=== PATIENT | male | born 1970 | race Caucasian/White ===

== ENCOUNTER → 2016-11-17 | Outpatient (CLI) | payer OTHER ==
[~2016-11-17] MED LIST: ASPEC81 PO; ASPI81TA28 PO; ATOR-26 PO; ATV/1 PO; BSP/10 PO; BUSP5TAB59 PO; CLOP1TAB5 PO; CYCL10TA6 PO; FLUO20CA35 PO; IBUP-1050 PO; LORA-741 PO; LPR25 PO; LPT40 PO; METO25TA56 PO; OXYC1TAB3 PO; PANT1TAB3 PO; PLV75 PO; RABE1TAB2 PO
[2016-11-17 09:53] LABS: ALT/SGPT 30 U/L (12-78); BLOOD UREA NITROGEN 15 mg/dl (7-18); BUN/CREATININE RATIO 15.5 (10-20); CALCIUM 8.6 mg/dl (8.5-10.1); CARBON DIOXIDE 24 mmol/L (21-32); CHLORIDE 110 mmol/L (98-107); CHOLESTEROL 149 mg/dl (0-200); CREATININE 0.94 mg/dl (0.60-1.40); GLUCOSE 109 mg/dl (70-99); POTASSIUM 3.8 mmol/L (3.5-5.1); SODIUM 143 mmol/L (136-145)
[2016-11-17 09:56] LABS: ALB/GLOB RATIO 0.9 (0.9-2); ALKALINE PHOSPHATASE 100 U/L (45-117); AST/SGOT 23 U/L (15-37); HDL CHOLESTEROL 30 mg/dl; LDL CHOLESTEROL CALCULATED 78 mg/dl; TRIGLYCERIDES 206 mg/dl (0-150); VERY LOW DENSITY LIPOPROT CALC 41 mg/dl
== END | disposition home or self-care (01) ==
LOC: C.LAB1850 07:37
PROVIDERS: ATTEND Internal Medicine Cardiovascular Disease
DX: I25.10 Atherosclerotic heart disease of native coronary artery without angina pectoris (principal); I10 Essential (primary) hypertension; E78.5 Hyperlipidemia, unspecified

== ENCOUNTER 2017-04-18 07:43 | Emergency (ER) | payer OTHER ==
[~2017-04-18] VITALS: Ht 188 cm; Wt 139.6 kg
[~2017-04-18 07:43] MED LIST changes: -ASPI81TA28 PO; -ATOR-26 PO; -ATV/1 PO; -BSP/10 PO; -BUSP5TAB59 PO; -CLOP1TAB5 PO; -CYCL10TA6 PO; -FLUO20CA35 PO; -LORA-741 PO; -METO25TA56 PO; -OXYC1TAB3 PO; -PANT1TAB3 PO; -RABE1TAB2 PO
[2017-04-18 07:50] VITALS: TEMP 36.7; Ht 188 cm; Wt 139.6 kg
[2017-04-18] MEDS ORDERED: KETOROLAC TROMETHAMINE 30 MG/ML VIAL IV STA (08:06)
--- NOTE | 2017-04-18 08:08 | EMERGENCY ROOM VISIT NOTE ---
History Report prepared by Unruly: Itzel Webber Under the Supervision of: Dr. Aaron Maxwell M.D. First contact with patient: 08:00 Chief Complaint: FLANK PAIN Stated Complaint: LEFT SIDE PAIN History of Present Illness The patient is a 46 year old male who presents to the Emergency Room with complaints of worsening left sided flank pain beginning 2 days prior to arrival. The patient states that Tuesday he fell down his stairs at home. He states that he caught himself on the railing with his left arm. He notes soreness after the fall. The patient states that 2 days ago he was moving and lifting items from his basement. Since then he has been experiencing pain to his left flank. The patient notes his pain worsens with deep breaths and movement. He denies blood in urine, urinary symptoms, back pain, headache, neck pain, abdominal pain or extremity pain. The patient has had a cardiac stent in place since May last year. He is on blood thinners. Source of History: patient, spouse/significant other Onset: 2 days [employer] Position: other (left flank) Timing: worsening Modifying Factors (Worsening): breathing, movement Associated Symptoms: No headache, No neck pain, No abdominal pain, No back pain, No urinary symptoms Review of Systems See HPI for pertinent positives & negatives. A total of 10 systems reviewed and were otherwise negative. Past Medical & Surgical Medical Problems: (1) Chest pain (2) Hypertension (3) Palpitations (4) skin problems Old medical records were reviewed. Nurse's notes were reviewed and I agree with. Family History Cancer Lung disease Social History Smoking Status: Current Every Day Smoker Drug Use: none Marital Status: Housing Status: lives with family Occupation Status: employed Current/Historical Medications Scheduled Aspirin (Aspirin EC Low Dose), 81 MG PO QAM Atorvastatin (Atorvastatin Calcium), 80 MG PO HS Clopidogrel Bisulfate (Clopidogrel), 75 MG PO QAM Metoprolol Tartrate (Lopressor), 12.5 MG PO BID Rabeprazole Sodium (Rabeprazole Sodium), 20 MG PO DAILY Scheduled PRN Ibuprofen (Advil), 400-600 MG PO Q6 PRN for Pain Oxycodone Immediate Rel Tab (Roxicodone Ir), 1-2 TAB PO Q6 PRN for Severe Pain Allergies Coded Allergies: No Known Drug Allergy (Verified Allergy, Unknown, ., 04/18/17) Physical Exam Vital Signs Date Time Temp Pulse Resp B/P (MAP) Pulse Ox O2 Delivery O2 Flow Rate FiO2 04/18/17 11:31 62 18 138/76 95 04/18/17 10:21 62 18 135/77 95 Room Air 04/18/17 07:50 36.7 70 18 141/86 95 Room Air Physical Exam General: Well developed well nourished in no acute distress middle aged male, breathing comfortably on room air. Normal speech. he has pain with deep breathing, no respiratory distress, pain seems to worsen with movement. HEENT: Normal cephalic atraumatic. Pupils are equal round and reactive to light. Sclerae anicteric. Extraocular movements are intact. Oropharynx is pink with moist mucous membranes. No swelling of the mouth lips or tongue. Neck: Supple with a midline trachea. No meningeal signs or stiffness, no JVD or bruits. No Stridor. Chest: Clear to auscultation bilaterally. No wheezes or rhonchi. No increased work of breathing. Heart: regular rate and rhythm. Abdomen: Soft nontender, nondistended without rebound guarding or rigidity. Extremities: No cyanosis clubbing or edema. No calf tenderness or assymetry Spine/Back. Tender to palpation of lower left rib cage, no rash. Skin: Good turgor without rashes. Neurologic exam: Cranial nerves two through 12 are intact. Motor and sensation are intact and symmetrical throughout. Medical Decision & Procedures ER Provider Diagnostic Interpretation: Radiology results as stated below per my review and radiologist interpretation: LEFT RIBS UNILATERAL WITH PA CHEST CLINICAL HISTORY: Left lower rib pain following fall. COMPARISON STUDY: Chest radiograph June 20, 2016. FINDINGS: There is no pneumothorax or pleural effusion. No airspace opacities are identified. Cardiomediastinal silhouette is normal. No acute left rib fractures are identified. IMPRESSION: No pneumothorax. No acute left rib fractures identified. Electronically signed by: Cristi Mullen M.D. 04/18/2017 9:08 AM Dictated Date/Time: 04/18/2017 9:[address] ANGIOGRAPHY OF THE CHEST, PULMONARY EMBOLUS PROTOCOL CLINICAL HISTORY: Left posterior chest pain. COMPARISON STUDY: Chest CT June 06, 2016. TECHNIQUE: Following IV administration of 93 mL of Optiray-320, helical axial images of the chest were obtained utilizing the pulmonary embolus protocol. Maximal intensity projections and sagittal and coronal reformats were viewed on an independent 3D workstation. IV contrast was administered without complication. CT DOSE: 729.23 mGy.cm FINDINGS: No pulmonary emboli are identified. There is no evidence of thoracic aortic dissection. There is borderline cardiomegaly. There is no pericardial effusion. No enlarged thoracic lymph nodes are present. There are several calcified right hilar lymph nodes. There are few calcified and noncalcified pulmonary nodules which are unchanged and CT of September 01, 2010. These are benign. There is no consolidation to suggest pneumonia. Bony thorax is unremarkable. There is fatty infiltration of the liver. IMPRESSION: 1. No pulmonary emboli identified. 2. No acute intrathoracic findings. 3. Fatty liver. Electronically signed by: Cristi Mullen M.D. 04/18/2017 10:26 AM Dictated Date/Time: 04/18/2017 10:18 AM Laboratory Results 04/18/17 08:20 Red Blood Count 4.76, Mean Corpuscular Volume 88.0, Mean Corpuscular Hemoglobin 30.7, Mean Corpuscular Hemoglobin Concent 34.8, Mean Platelet Volume 10.1, Neutrophils (%) (Auto) 63.5, Lymphocytes (%) (Auto) 27.1, Monocytes (%) (Auto) 7.9, Eosinophils (%) (Auto) 1.1, Basophils (%) (Auto) 0.1, Neutrophils # (Auto) 4.72, Lymphocytes # (Auto) 2.01, Monocytes # (Auto) 0.59, Eosinophils # (Auto) 0.08, Basophils # (Auto) 0.01 04/18/17 08:20 Test 04/18/17 08:20 04/18/17 08:30 04/18/17 09:20 White Blood Count 7.43 K/uL (4.8-10.8) Red Blood Count 4.76 M/uL (4.7-6.1) Hemoglobin 14.6 g/dL (14.0-18.0) Hematocrit 41.9 % (42-52) Mean Corpuscular Volume 88.0 fL (80-100) Mean Corpuscular Hemoglobin 30.7 pg (25-34) Mean Corpuscular Hemoglobin Concent 34.8 g/dl (32-36) Platelet Count 185 K/uL (130-400) Mean Platelet Volume 10.1 fL (7.4-10.4) Neutrophils (%) (Auto) 63.5 % Lymphocytes (%) (Auto) 27.1 % Monocytes (%) (Auto) 7.9 % Eosinophils (%) (Auto) 1.1 % Basophils (%) (Auto) 0.1 % Neutrophils # (Auto) 4.72 K/uL (1.4-6.5) Lymphocytes # (Auto) 2.01 K/uL (1.2-3.4) Monocytes # (Auto) 0.59 K/uL (0.11-0.59) Eosinophils # (Auto) 0.08 K/uL (0-0.5) Basophils # (Auto) 0.01 K/uL (0-0.2) RDW Standard Deviation 43.9 fL (36.4-46.3) RDW Coefficient of Variation 13.6 % (11.5-14.5) Immature Granulocyte % (Auto) 0.3 % Immature Granulocyte # (Auto) 0.02 K/uL (0.00-0.02) Anion Gap 9.0 mmol/L (3-11) Est Creatinine Clear Calc Drug Dose 123.5 ml/min Estimated GFR () 92.2 Estimated GFR (Non- 79.5 BUN/Creatinine Ratio 13.5 (10-20) Calcium Level 8.6 mg/dl (8.5-10.1) Troponin I < 0.015 ng/ml (0-0.045) Bedside D-Dimer > 450 ng/mlFEU (0-450) Urine Color DK YELLOW Urine Appearance CLEAR (CLEAR) Urine pH 5.0 (4.5-7.5) Urine Specific [place] 1.031 (1.000-1.030) Urine Protein NEG (NEG) Urine Glucose (UA) NEG (NEG) Urine Ketones TRACE (NEG) Urine Occult Blood NEG (NEG) Urine Nitrite NEG (NEG) Urine Bilirubin NEG (NEG) Urine Urobilinogen NEG (NEG) Urine Leukocyte Esterase NEG (NEG) Laboratory studies as stated above per my review. Medications Administered Medications (Trade) Dose Ordered Sig/Aung Route Start Time Stop Time Status Last Admin Dose Admin Ketorolac Tromethamine (Toradol Inj) 30 mg NOW STAT IV 04/18/17 08:06 04/18/17 08:09 DC 04/18/17 08:27 30 MG ECG Indication: other (flank pain) Rate (beats per minute): 62 Rhythm: normal sinus Findings: no acute ischemic change, no ectopy Change: no significant change (from June 20, 2016) ED Course 0801: Past medical records reviewed. The patient was evaluated in room B9, and a complete history and physical examination were performed. 805: Toradol Inj 30 mg IV. 919: I reevaluated the patient. I discussed test results and a CT scan will be ordered. 1104: I reevaluated the patient and he is feeling better. He would like to go home. 1110: Upon reevaluation, the patient is hemodynamically stable. I discussed the results and treatment plan with him. He verbalized agreement of the treatment plan. The patient was discharged home. Medical Decision Differentials include, but are not limited to; rib fracture, pneumothorax, PE, UTI, kidney stone, electrolyte or metabolic abnormalities, cardiac disease. Medication Reconciliation: I attest that I have personally reviewed the patient' s current medication list. Blood pressure Screening: Patient was found to have normal blood pressure on screening and does not require follow-up. This patient comes in as described above. He has pain in his left lower rib. He may have fallen but had no significant direct trauma there. He's been urinating fine without any blood. It hurts when he takes a deep breath or moves. The pain actually started about a day or so later does have a history of cardiac disease and has had no chest pain and the symptoms be extremely atypical for cardiac disease. IV access established, EKG does not suggest acute coronary syndrome or arrhythmia. Troponin is normal and makes cardiac disease extremely unlikely. Chest x-ray with rib series does not show any fine acute findings. There is no pneumothorax or rib fracture. His d-dimer was elevated and in light of this, I did do a chest CT and there is no evidence of PE or other acute pathology. He was given IV Toradol and he seems more comfortable. He feels good and would like to go home. There is nothing to suggest a UTI or kidney stone. He will rest and drink plenty of fluids. Use ibuprofen here for breakthrough pain. He was given a small prescription for OxyIR that he can use 5 mg as directed and was warned that this could make him drowsy and do not take before drinking, driving, working. He was happy with plan and discharged to home. Impression Primary Impression: Left flank pain Additional Impression: Rib pain on left side Scribe Attestation The scribe's documentation has been prepared under my direction and personally reviewed by me in its entirety. I confirm that the note above accurately reflects all work, treatment, procedures, and medical decision making performed by me. Departure Information Dispostion Home / Self-Care Prescriptions Oxycodone Immediate Rel Tab (ROXICODONE IR) 5 Mg Tab 1-2 TAB PO Q6 Y for Severe Pain, #10 TAB Prov: Aaron Maxwell M.D. 04/18/17 Referrals No Doctor, Assigned (PCP) Forms HOME CARE DOCUMENTATION FORM, IMPORTANT VISIT INFORMATION, School Instructions, Work Instructions Patient Instructions [facility] Additional Instructions Rest. Drink plenty of fluids. For pain, may use ibuprofen 600 mgs every 6 hours, take with food For more severe pain, may use OxyIR 5 mg, one or 2 pills every 4-6 hours as needed OxyIR may make you drowsy and do not take before drinking, driving, working Return if: Increasing pain, worsening of symptoms, fever or chills, any new problems or concerns. Follow-up with your doctor in 2-4 days for recheck Problem Qualifiers
[2017-04-18 08:38] LABS: BASO % 0.1 %; BASO ABS # 0.01 K/uL (0-0.2); COMPLETE YES; EOS % 1.1 %; HEMATOCRIT 41.9 % (42-52); IG% 0.3 %; LYMPH % 27.1 %; LYMPH ABS # 2.01 K/uL (1.2-3.4); MEAN CORPUSCULAR HEMOGLOBIN 30.7 pg (25-34); MEAN CORPUSCULAR HGB CONC 34.8 g/dl (32-36); MEAN PLATELET VOLUME 10.1 fL (7.4-10.4); MONO % 7.9 %; NEUT % 63.5 %; PLATELET COUNT 185 K/uL (130-400); RED BLOOD COUNT 4.76 M/uL (4.7-6.1); WHITE BLOOD COUNT 7.43 K/uL (4.8-10.8)
[2017-04-18 08:59] LABS: BUN/CREATININE RATIO 13.5 (10-20); CREATININE 1.1 mg/dl (0.60-1.40); POTASSIUM 3.6 mmol/L (3.5-5.1)
[2017-04-18 09:04] LABS: CALCIUM 8.6 mg/dl (8.5-10.1)
--- NOTE | 2017-04-18 09:09 | DIAGNOSTIC IMAGING REPORT ---
LEFT RIBS UNILATERAL WITH PA CHEST CLINICAL HISTORY: Left lower rib pain following fall. COMPARISON STUDY: Chest radiograph June 20, 2016. FINDINGS: There is no pneumothorax or pleural effusion. No airspace opacities are identified. Cardiomediastinal silhouette is normal. No acute left rib fractures are identified. IMPRESSION: No pneumothorax. No acute left rib fractures identified. Electronically signed by: Cristi Mullen M.D. 04/18/2017 9:08 AM Dictated Date/Time: 04/18/2017 9:06 AM
[2017-04-18] MEDS ORDERED: OPTIRAY 320 IV PRN (09:30)
[2017-04-18 10:10] LABS: URINE APPEARANCE CLEAR (CLEAR); URINE BILIRUBIN NEG (NEG); URINE COLOR DK YELLOW; URINE NITRITE NEG (NEG); URINE SPECIFIC GRAVITY 1.031 (1.000-1.030); UROBILINOGEN NEG (NEG)
[2017-04-18 10:17] LABS: MANUAL MICROSCOPIC REQUIRED? NO; REVIEW REQ? NO
--- NOTE | 2017-04-18 10:28 | DIAGNOSTIC IMAGING REPORT ---
CT ANGIOGRAPHY OF THE CHEST, PULMONARY EMBOLUS PROTOCOL CLINICAL HISTORY: Left posterior chest pain. COMPARISON STUDY: Chest CT June 06, 2016. TECHNIQUE: Following IV administration of 93 mL of Optiray-320, helical axial images of the chest were obtained utilizing the pulmonary embolus protocol. Maximal intensity projections and sagittal and coronal reformats were viewed on an independent 3D workstation. IV contrast was administered without complication. CT DOSE: 729.23 mGy.cm FINDINGS: No pulmonary emboli are identified. There is no evidence of thoracic aortic dissection. There is borderline cardiomegaly. There is no pericardial effusion. No enlarged thoracic lymph nodes are present. There are several calcified right hilar lymph nodes. There are few calcified and noncalcified pulmonary nodules which are unchanged and CT of September 01, 2010. These are benign. There is no consolidation to suggest pneumonia. Bony thorax is unremarkable. There is fatty infiltration of the liver. IMPRESSION: 1. No pulmonary emboli identified. 2. No acute intrathoracic findings. 3. Fatty liver. Electronically signed by: Cristi Mullen M.D. 04/18/2017 10:26 AM Dictated Date/Time: 04/18/2017 10:18 AM
[2017-04-18] MEDS ORDERED: OXYC1TAB3 PO (11:11)
[2017-04-18 11:31] VITALS: BP 138/76; PULSE 62; O2SAT 95
[2017-05-29] MEDS ORDERED: RABE1TAB2 PO (21:17)
[2017-07-22] MEDS ORDERED: FLUO20CA35 PO (07:35)
[2017-08-05] MEDS ORDERED: ATV/1 PO (09:33)
== END 2017-04-18 11:25 | disposition home or self-care (01) ==
LOC: C.EDB 07:44
DX: R10.30 Lower abdominal pain, unspecified (principal); R07.81 Pleurodynia; Z95.5 Presence of coronary angioplasty implant and graft; I10 Essential (primary) hypertension; Z80.9 Family history of malignant neoplasm, unspecified; F17.210 Nicotine dependence, cigarettes, uncomplicated; Z79.82 Long term (current) use of aspirin; Z79.899 Other long term (current) drug therapy

== ENCOUNTER 2017-05-29 21:31 | Emergency (ER) | payer OTHER ==
[~2017-05-29] VITALS: Ht 188 cm; Wt 140.3 kg
[~2017-05-29 21:31] MED LIST changes: +OXYC1TAB3 PO; +RABE1TAB2 PO
[2017-05-29 21:35] VITALS: TEMP 36.9; Ht 188 cm; Wt 140.3 kg
[2017-05-29] MEDS ORDERED: KETOROLAC TROMETHAMINE 60 MG/2 ML VIAL IM STA (21:57)
[2017-05-29] MEDS ORDERED: CYCLOBENZAPRINE HCL 10 MG TAB PO STA (21:57)
[2017-05-29] MEDS ORDERED: CYCL10TA6 PO (22:00)
[2017-05-29] MEDS ORDERED: FLEXERIL HOME PACK 10 MG VIAL PO ONE (22:00)
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
[2017-05-29] MEDS ORDERED: ATOR-26 PO (22:08)
[2017-05-29] MEDS ORDERED: METO25TA56 PO (22:08)
[2017-05-29] MEDS ORDERED: CLOP1TAB5 PO (22:08)
[2017-05-29] MEDS ORDERED: IBUP-1050 PO (22:08)
[2017-05-29] MEDS ORDERED: ASPI81TA28 PO (22:08)
[2017-05-29 22:15] VITALS: PULSE 73; O2SAT 96
[2017-05-29 22:29] VITALS: BP 160/97
[2017-07-22] MEDS ORDERED: FLUO20CA35 PO (07:35)
[2017-08-05] MEDS ORDERED: ATV/1 PO (09:33)
== END 2017-05-29 22:30 | disposition home or self-care (01) ==
LOC: C.EDB 21:34 → C.EDD 22:30
DX: S16.1XXA Strain of muscle, fascia and tendon at neck level, initial encounter (principal); S39.012A Strain of muscle, fascia and tendon of lower back, initial encounter; V43.52XA Car driver injured in collision with other type car in traffic accident, initial encounter; I10 Essential (primary) hypertension; F17.200 Nicotine dependence, unspecified, uncomplicated; Z79.82 Long term (current) use of aspirin; Z79.899 Other long term (current) drug therapy; Z80.9 Family history of malignant neoplasm, unspecified; Z82.49 Family history of ischemic heart disease and other diseases of the circulatory system

== ENCOUNTER 2017-06-18 21:23 | Emergency (ER) | payer OTHER ==
[~2017-06-18] VITALS: Ht 177.8 cm; Wt 136.6 kg
[~2017-06-18 21:23] MED LIST changes: -ASPEC81 PO; +ASPI81TA28 PO; +ATOR-26 PO; +CLOP1TAB5 PO; -LPR25 PO; -LPT40 PO; +METO25TA56 PO; -OXYC1TAB3 PO; -PLV75 PO
[2017-06-18 21:36] VITALS: TEMP 36.7; Ht 177.8 cm; Wt 136.6 kg
[2017-06-18 22:15] VITALS: O2SAT 98
[2017-06-18] MEDS ORDERED: LORAZEPAM 2 MG/ML 1 ML VIAL IV STA (22:19)
--- NOTE | 2017-06-18 22:24 | EMERGENCY ROOM VISIT NOTE ---
History Report prepared by Unruly: Jameson Amaro Under the Supervision of: Dr. Naren Gracia M.D. First contact with patient: 22:15 Chief Complaint: SHORTNESS OF BREATH Stated Complaint: ANXIETY Nursing Triage Summary: patient sates around 2030 he was watching TV and suddenly became feeling anxious, flushed, and had feelings of SOB. patient states he then developed pressure to his upper abdomen. patient states he has hx of anxiety attacks that have had similar symptoms to this but today has been worse. patient has hx of MT with stents. History of Present Illness The patient is a 46 year old male who presents to the Emergency Room with complaints of sudden onset "pressure" in the center of his chest that began at 2030, two hours prior to arrival. The patient states that he was laying on the couch watching TV when he started to experience the pressure. He also notes becoming suddenly hot and diaphoretic, and experiencing "tingling" from his head to his feet. He denies feeling anxious before the symptoms began. He does admit to breathing rapidly secondary to his symptoms. He has taken Lorazepam in the past, but it no longer taking it. 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 Please see Additional Medical History Sheet. Past Medical & Surgical Medical Problems: (1) Anxiety State Nos (2) Athscl Heart Disease Of [place] Cor Art W Unstable Ang Pctrs (3) Chest pain (4) GERD (gastroesophageal reflux disease) (5) Hyperlipidemia, Unspecified (6) Hypertension (7) Palpitations (8) skin problems (9) Tobacco Use Disorder Surgical Problems: (1) Presence Of Coronary Angioplasty Implant And Graft Family History Cancer FH: heart disease Lung disease Social History Smoking Status: Never Smoker Drug Use: none Marital Status: Housing Status: lives with family Occupation Status: employed Current/Historical Medications Scheduled Aspirin (Aspirin Ec), 81 MG PO QAM Atorvastatin (Lipitor), 80 MG PO HS Clopidogrel Bisulfate (Plavix), 75 MG PO QAM Metoprolol Tartrate (Lopressor) (Lopressor), 12.5 MG PO BID Rabeprazole Sodium (Rabeprazole Sodium), 20 MG PO DAILY Scheduled PRN Ibuprofen (Advil), 400-600 MG PO Q6H PRN for Pain Lorazepam (Ativan), 0.5 MG PO Q6H PRN for Anxiety/Insomnia Allergies Coded Allergies: No Known Drug Allergy (Verified Allergy, Unknown, ., 06/18/17) Physical Exam Vital Signs Date Time Temp Pulse Resp B/P (MAP) Pulse Ox O2 Delivery O2 Flow Rate FiO2 06/18/17 23:44 79 20 140/90 95 Room Air 06/18/17 22:50 79 20 139/89 98 Room Air 06/18/17 22:15 98 Room Air 06/18/17 21:36 36.7 76 22 159/96 97 Room Air 06/18/17 21:36 97 Room Air 06/18/17 21:30 77 Physical Exam GENERAL: Patient awake, alert, oriented x 3. Patient follows commands. Patient appears anxious. SKIN: No erythema, pallor, cyanosis or rash HEENT: Normal head, pupils equal, reactive to light and accommodation. LUNGS: Clear to auscultation. No wheezes, no rales, no rhonchi. HEART: No murmurs. No gallops. No rubs ABDOMEN: No masses, no rebound, no hepatomegaly or splenomegaly. EXTREMITIES: No signs of trauma or infection. NEUROLOGIC: Cranial nerves II-XII within normal limits. No gross motor sensory function deficits. Medical Decision & Procedures ER Provider Diagnostic Interpretation: Radiology results as stated below per my review and radiologist interpretation: CHEST ONE VIEW PORTABLE CLINICAL HISTORY: Shortness of breath. Anxiety. COMPARISON STUDY: June 20, 2016 FINDINGS: The cardiac and mediastinal contours are normal. There is no evidence of focal pulmonary consolidation. There is no evidence of failure. No pleural effusions are visualized.[ IMPRESSION: No active disease in the chest. Electronically signed by: Denis Taylor M.D. 06/18/2017 10:37 PM Dictated Date/Time: 06/18/2017 10:37 PM Laboratory Results 06/18/17 21:10 Red Blood Count 5.17, Mean Corpuscular Volume 87.8, Mean Corpuscular Hemoglobin 29.2, Mean Corpuscular Hemoglobin Concent 33.3, Mean Platelet Volume 10.3, Neutrophils (%) (Auto) 49.0, Lymphocytes (%) (Auto) 42.8, Monocytes (%) (Auto) 6.4, Eosinophils (%) (Auto) 1.4, Basophils (%) (Auto) 0.1, Neutrophils # (Auto) 4.84, Lymphocytes # (Auto) 4.23, Monocytes # (Auto) 0.63, Eosinophils # (Auto) 0.14, Basophils # (Auto) 0.01 06/18/17 21:10 Test 06/18/17 21:10 White Blood Count 9.88 K/uL (4.8-10.8) Red Blood Count 5.17 M/uL (4.7-6.1) Hemoglobin 15.1 g/dL (14.0-18.0) Hematocrit 45.4 % (42-52) Mean Corpuscular Volume 87.8 fL (80-100) Mean Corpuscular Hemoglobin 29.2 pg (25-34) Mean Corpuscular Hemoglobin Concent 33.3 g/dl (32-36) Platelet Count 186 K/uL (130-400) Mean Platelet Volume 10.3 fL (7.4-10.4) Neutrophils (%) (Auto) 49.0 % Lymphocytes (%) (Auto) 42.8 % Monocytes (%) (Auto) 6.4 % Eosinophils (%) (Auto) 1.4 % Basophils (%) (Auto) 0.1 % Neutrophils # (Auto) 4.84 K/uL (1.4-6.5) Lymphocytes # (Auto) 4.23 K/uL (1.2-3.4) Monocytes # (Auto) 0.63 K/uL (0.11-0.59) Eosinophils # (Auto) 0.14 K/uL (0-0.5) Basophils # (Auto) 0.01 K/uL (0-0.2) RDW Standard Deviation 43.1 fL (36.4-46.3) RDW Coefficient of Variation 13.3 % (11.5-14.5) Immature Granulocyte % (Auto) 0.3 % Immature Granulocyte # (Auto) 0.03 K/uL (0.00-0.02) Prothrombin Time 10.4 SECONDS (9.0-12.0) Prothromb Time International Ratio 1.0 (0.9-1.1) Activated Partial Thromboplast Time 27.4 SECONDS (21.0-31.0) Partial Thromboplastin Ratio 1.1 Anion Gap 9.0 mmol/L (3-11) Est Creatinine Clear Calc Drug Dose 97.8 ml/min Estimated GFR () 75.3 Estimated GFR (Non- 65.0 BUN/Creatinine Ratio 12.2 (10-20) Calcium Level 8.9 mg/dl (8.5-10.1) Total Bilirubin 0.8 mg/dl (0.2-1) Aspartate Amino Transf (AST/SGOT) 24 U/L (15-37) Alanine Aminotransferase (ALT/SGPT) 35 U/L (12-78) Alkaline Phosphatase 137 U/L (45-117) Total Protein 7.8 gm/dl (6.4-8.2) Albumin 3.6 gm/dl (3.4-5.0) Globulin 4.2 gm/dl (2.5-4.0) Albumin/Globulin Ratio 0.9 (0.9-2) Laboratory results as stated above per my review. Medications Administered Medications (Trade) Dose Ordered Sig/Aung Route Start Time Stop Time Status Last Admin Dose Admin Lorazepam (Ativan Inj) 1 mg NOW STAT IV 06/18/17 22:19 06/18/17 22:20 DC 06/18/17 22:28 1 MG ECG Indication: chest pain Rate (beats per minute): 78 Rhythm: normal sinus Findings: no acute ischemic change, no ectopy ED Course 2214: Past medical records reviewed. The patient was evaluated in room B12. A complete history and physical examination was performed. 2218: Ordered Lorazepam 1 mg IV. 0: Upon reevaluation, the patient appeared to have improvement of his symptoms. I discussed today's findings with him. He verbalized agreement of the treatment plan. The patient was discharged home. Medical Decision I considered multiple diagnoses including myocardial infarction, chest wall pain , anxiety, pericarditis, myocarditis, aortic emergencies, pulmonary embolism, congestive heart failure, GI causes, and other significant cardiopulmonary disorders. Multiple labs, EKG and imaging were obtained. Please see above. The patient has no evidence of an acute cardiopulmonary event. Patient did feel better after taking Ativan. The patient will be given a prescription for the same. He is to follow-up with his family physician within the next week regarding this problem and his elevated blood pressure. Medication Reconcilliation Current Medication List: was personally reviewed by me Blood Pressure Screening Patient's blood pressure: Elevated blood pressure Blood pressure disposition: Referred to PCP Impression Primary Impression: Anxiety attack Scribe Attestation The scribe's documentation has been prepared under my direction and personally reviewed by me in its entirety. I confirm that the note above accurately reflects all work, treatment, procedures, and medical decision making performed by me. Departure Information Dispostion Home / Self-Care Prescriptions Lorazepam (ATIVAN) 0.5 Mg Tab 0.5 MG PO Q6H Y for Anxiety/Insomnia, #10 TAB Prov: Naren Gracia M.D. 06/18/17 Referrals Bob Levin (PCP) Patient Instructions Anxiety Disorder, My [facility] Additional Instructions 1 Ativan every 6 hours as needed for anxiety. Follow-up with your family physician within the next 7 days regarding this problem and to recheck your blood pressure. Return here sooner if your chest pain gets worse.
[2017-06-18 22:25] LABS: BASO % 0.1 %; BASO ABS # 0.01 K/uL (0-0.2); COMPLETE YES; EOS % 1.4 %; HEMATOCRIT 45.4 % (42-52); IG% 0.3 %; LYMPH % 42.8 %; LYMPH ABS # 4.23 K/uL (1.2-3.4); MEAN CELL VOLUME 87.8 fL (80-100); MEAN CORPUSCULAR HEMOGLOBIN 29.2 pg (25-34); MEAN CORPUSCULAR HGB CONC 33.3 g/dl (32-36); MEAN PLATELET VOLUME 10.3 fL (7.4-10.4); MONO % 6.4 %; PLATELET COUNT 186 K/uL (130-400); RED BLOOD COUNT 5.17 M/uL (4.7-6.1); WHITE BLOOD COUNT 9.88 K/uL (4.8-10.8)
[2017-06-18 22:28] LABS: PARTIAL THROMBOPLASTIN RATIO 1.1; PROTHROMBIN TIME (PATIENT) 10.4 SECONDS (9.0-12.0)
[2017-06-18 22:36] LABS: ALB/GLOB RATIO 0.9 (0.9-2); BUN/CREATININE RATIO 12.2 (10-20); CALCIUM 8.9 mg/dl (8.5-10.1); CREATININE 1.3 mg/dl (0.60-1.40)
--- NOTE | 2017-06-18 22:39 | DIAGNOSTIC IMAGING REPORT ---
CHEST ONE VIEW PORTABLE CLINICAL HISTORY: Shortness of breath. Anxiety. COMPARISON STUDY: June 20, 2016 FINDINGS: The cardiac and mediastinal contours are normal. There is no evidence of focal pulmonary consolidation. There is no evidence of failure. No pleural effusions are visualized.[ IMPRESSION: No active disease in the chest. Electronically signed by: Denis Taylor M.D. 06/18/2017 10:37 PM Dictated Date/Time: 06/18/2017 10:37 PM
[2017-06-18 22:48] LABS: POTASSIUM 3.4 mmol/L (3.5-5.1)
[2017-06-18 23:44] VITALS: BP 140/90; PULSE 79; O2SAT 95
[2017-06-18] MEDS ORDERED: LORA-741 PO (23:45)
[2017-07-22] MEDS ORDERED: FLUO20CA35 PO (07:35)
[2017-08-05] MEDS ORDERED: ATV/1 PO (09:33)
== END 2017-06-18 22:57 | disposition home or self-care (01) ==
LOC: EDBD 21:23 → C.EDB 21:26
DX: F41.9 Anxiety disorder, unspecified (principal); I25.10 Atherosclerotic heart disease of native coronary artery without angina pectoris; K21.9 Gastro-esophageal reflux disease without esophagitis; E78.5 Hyperlipidemia, unspecified; I10 Essential (primary) hypertension; R00.2 Palpitations; Z82.49 Family history of ischemic heart disease and other diseases of the circulatory system; Z79.82 Long term (current) use of aspirin

== ENCOUNTER → 2017-07-20 | Outpatient (CLI) | payer OTHER ==
[~2017-07-20] MED LIST changes: +ATV/1 PO; +FLUO20CA35 PO
[2017-07-20 17:38] LABS: BASO % 0.1 %; BASO ABS # 0.01 K/uL (0-0.2); COMPLETE YES; EOS % 0.9 %; HEMATOCRIT 42.1 % (42-52); IG% 0.4 %; LYMPH % 32.3 %; LYMPH ABS # 2.39 K/uL (1.2-3.4); MEAN CELL VOLUME 89.2 fL (80-100); MEAN CORPUSCULAR HEMOGLOBIN 30.3 pg (25-34); MEAN PLATELET VOLUME 10.3 fL (7.4-10.4); NEUT % 58.3 %; PLATELET COUNT 201 K/uL (130-400); RED BLOOD COUNT 4.72 M/uL (4.7-6.1); WHITE BLOOD COUNT 7.39 K/uL (4.8-10.8)
[2017-07-20 17:58] LABS: ALT/SGPT 41 U/L (12-78); AMYLASE 40 U/L (25-115); AST/SGOT 20 U/L (15-37); BLOOD UREA NITROGEN 15 mg/dl (7-18); BUN/CREATININE RATIO 13.3 (10-20); CALCIUM 8.3 mg/dl (8.5-10.1); CARBON DIOXIDE 25 mmol/L (21-32); CHLORIDE 110 mmol/L (98-107); GLUCOSE 107 mg/dl (70-99); POTASSIUM 3.7 mmol/L (3.5-5.1); SODIUM 141 mmol/L (136-145)
[2017-07-20 18:00] LABS: ALB/GLOB RATIO 0.9 (0.9-2); ALKALINE PHOSPHATASE 105 U/L (45-117)
[2017-07-24 00:37] LABS: IGA SERUM 224 mg/dL (81-463); TIS TRANS IGA 1 U/mL (<4)
== END | disposition home or self-care (01) ==
LOC: C.LAB1850 16:18
PROVIDERS: ATTEND Registered Nurse
DX: R11.0 Nausea (principal)

== ENCOUNTER → 2017-07-22 | Outpatient (CLI) | payer OTHER ==
--- NOTE | 2017-07-22 10:48 | DIAGNOSTIC IMAGING REPORT ---
ABDOMINAL ULTRASOUND, RIGHT UPPER QUADRANT HISTORY: Abdominal bloating. Esophageal reflux disease. Nausea. COMPARISON: CT of the abdomen and pelvis June 20, 2016. FINDINGS: Liver morphology is normal. Hepatic echogenicity is increased consistent with fatty infiltration. There is sparing within the gallbladder fossa. No biliary ductal dilatation is present. Common bile duct measures 5 mm in caliber. The gallbladder is normal. There are no gallstones. Pancreas is partially obscured by overlying bowel gas. There is no right hydronephrosis. IMPRESSION: 1. No gallstones or biliary ductal dilatation. 2. Fatty infiltration of the liver. 3. Study mildly compromised by suboptimal penetration. Partially obscured pancreas. Electronically signed by: Cristi Mullen M.D. 07/22/2017 10:46 AM Dictated Date/Time: 07/22/2017 10:31 AM
== END | disposition home or self-care (01) ==
LOC: C.ULTR 09:43
PROVIDERS: ATTEND Registered Nurse
DX: R14.0 Abdominal distension (gaseous) (principal); R11.0 Nausea; K21.9 Gastro-esophageal reflux disease without esophagitis; K76.0 Fatty (change of) liver, not elsewhere classified

== ENCOUNTER → 2017-08-05 | Day surgery (SDC) | payer OTHER ==
[2017-07-22 07:36] VITALS: Ht 188 cm; Wt 136.4 kg
[~2017-08-05] VITALS: Ht 188 cm; Wt 136.4 kg
[~2017-08-05] MED LIST changes: +FENTANYL CITRATE INJ 50 MCG/1 ML 2 ML VIAL ONE; -IBUP-1050 PO; +LIDOCAINE HCL 2% 2 ML VIAL (20MG/ML) ONE; +PROPOFOL IV EMULSION 10 MG/ML 20 ML VIAL IV ONE
--- NOTE | 2017-08-05 10:16 | Endo History and Physical ---
History & Physical Date of Service: Aug 05, 2017. Chief Complaint: ABDOMINAL BLOATING, REFLUX, NAUSEA Referring Physician: DR. LAFLEUR History of Present Illness 46 yo CM who presents for EGD secondary to abdominal bloating, GERD and Nausea. Past Surgical History Hx Cardiac Surgery: Yes (HEART CATH-1 STENT PLACED) Hx Internal Defibrillator: No Hx Pacemaker: No Hx Abdominal Surgery: No Hx of Implantable Prosthesis: No Hx Post-Op Nausea and Vomiting: No Hx Cancer Surgery: No Hx Thoracic Surgery: No Hx Orthopedic: No Hx Urinary Tract Surgery: No Family History IBD Social History Smoking Status: Former Smoker Hx Substance Use: No Hx Alcohol Use: Yes (VERY RARELY) Allergies Coded Allergies: No Known Drug Allergy (Verified Allergy, Unknown, ., 07/22/17) Current Medications Reported Home Medications Medications Dose Route/Sig Max Daily Dose Days Date Category Ativan (Lorazepam) 1 Mg Tab 1 Mg PO Q6H PRN 08/05/17 Reported Prozac (Fluoxetine HCl) 20 Mg Cap 20 Mg PO QAM 07/22/17 Reported Aspirin Ec (Aspirin) 81 Mg Tab 81 Mg PO QAM 05/29/17 Reported Plavix (Clopidogrel Bisulfate) 75 Mg Tab 75 Mg PO QAM 05/29/17 Reported Lipitor (Atorvastatin Calcium) 80 Mg Tab 80 Mg PO HS 05/29/17 Reported Lopressor (Metoprolol Tartrate) 25 Mg Tab 12.5 Mg PO BID 05/29/17 Reported Rabeprazole Sodium 20 Mg Tab 20 Mg PO QAM 06/06/16 Reported Vital Signs Weight (Kilograms): 136.36 Height (Feet): 6 Height (Inches): 2 Date Time Temp Pulse Resp B/P (MAP) Pulse Ox O2 Delivery O2 Flow Rate FiO2 08/05/17 09:40 37.1 65 16 113/72 (86) 97 Room Air Physical Exam General Appearance: WD/WN, no apparent distress Respiratory/Chest: Auscultation: breath sounds normal Cardiovascular: Heart Auscultation: RRR Abdomen: Bowel Sounds: normal Inspection & Palpation: soft, non-distended, no tenderness, guarding & rebound Assessment and Plan Assessment: 46 yo CM who presents for EGD secondary to abdominal bloating, GERD and Nausea. Plan: Proceed with colonoscopy.
--- NOTE | 2017-08-05 10:41 | Discharge Instructions ---
Endoscopy Patient Instructions Date / Procedure(s) Performed Aug 05, 2017. EGD Allergy Information Coded Allergies: No Known Drug Allergy (Verified Allergy, Unknown, ., 07/22/17) Discharge Date / Findings Aug 05, 2017. Gastric antrum biopsies Medication Instructions Stopped Medication(s): PLAVIX 07/31, ASPIRIN 08/05 OK to resume all medications today as prescribed Reported Home Medications Medications Dose Route/Sig Max Daily Dose Days Date Category Ativan (Lorazepam) 1 Mg Tab 1 Mg PO Q6H PRN 08/05/17 Reported Prozac (Fluoxetine HCl) 20 Mg Cap 20 Mg PO QAM 07/22/17 Reported Aspirin Ec (Aspirin) 81 Mg Tab 81 Mg PO QAM 05/29/17 Reported Plavix (Clopidogrel Bisulfate) 75 Mg Tab 75 Mg PO QAM 05/29/17 Reported Lipitor (Atorvastatin Calcium) 80 Mg Tab 80 Mg PO HS 05/29/17 Reported Lopressor (Metoprolol Tartrate) 25 Mg Tab 12.5 Mg PO BID 05/29/17 Reported Rabeprazole Sodium 20 Mg Tab 20 Mg PO QAM 06/06/16 Reported Provider Instructions Activity Restrictions - No exercising or heavy lifting for 24 hours. - Do not drink alcohol the day of the procedure. - Do not drive a car or operate machinery until the day after the procedure. - Do not make any important decisions or sign important papers in 24 hours after the procedure. Following Day: - Return to full activity which may include returning to work/school. Diet Start your diet with liquids and light foods (jello, soup, juice, toast). Then eat your usual diet if not nauseated. Treatment For Common After Affects For mild abdominal pain, bloating, or excessive gas: - Rest - Eat lightly - Lie on right side Follow-Up Information Follow-up with DR. LAFLEUR as scheduled Anesthesia Information What You Should Know You have had a procedure that required some medicine to reduce anxiety and discomfort. This treatment is called moderate sedation. After receiving the treatment, you may be sleepy, but you will be able to breathe on your own. The effects of the treatment may last for several hours. Follow these instructions along with Activity/Diet recommendations noted above: * Do NOT do anything where dizziness or clumsiness would be dangerous. * Rest quietly at home today, then you can be up and about tomorrow. * Have a responsible person stay with you the rest of today. * You may have had an I.V. today. If so, you may take the dressing off later today. Recommendations Call your doctor if: * Trouble breathing * Continuous vomiting for more than 24 hours * Temperature above 101 degrees * Severe abdominal pain or bloating * Pain not relieved by pain medicine ordered * There is increased drainage or redness from any incision * A large amount of rectal bleeding greater than 2-3 tablespoons. (If you had a polyp/s removed or have hemorrhoids, a small amount of blood - from the rectum is to be expected.) * You have any unanswered questions or concerns. IN THE EVENT OF A SERIOUS EMERGENCY, GO TO THE NEAREST EMERGENCY ROOM Your discharge instructions were prepared by provider Narciso Soto. Patient Instructions Signature Page Reza Jesus Patient (or Guardian) Signature/Date: I have read and understand the instructions given to me by my caregivers. Caregiver/RN/Doctor Signature/Date: The above-named patient and/or guardian has received patient instructions on this date. + Original Patient Signature Page (only) stays with chart. Please make copy for patient.
--- NOTE | 2017-08-05 10:50 | GI REPORT ---
Procedure Date: 08/05/2017 10:23 AM Procedure: Upper GI endoscopy Indications: Gastro-esophageal reflux disease, Nausea Medicines: Monitored Anesthesia Care Complications: No immediate complications. Estimated Blood Loss: Estimated blood loss: none. Procedure: Pre-Anesthesia Assessment: - Prior to the procedure, a History and Physical was performed, and patient medications and allergies were reviewed. The patient's tolerance of previous anesthesia was also reviewed. The risks and benefits of the procedure and the sedation options and risks were discussed with the patient. All questions were answered, and informed consent was obtained. Prior Anticoagulants: The patient last took Plavix (clopidogrel) 5 days prior to the procedure and last took aspirin on the day of the procedure. ASA Grade Assessment: III - A patient with severe systemic disease. After reviewing the risks and benefits, the patient was deemed in satisfactory condition to undergo the procedure. After obtaining informed consent, the endoscope was passed under direct vision. Throughout the procedure, the patient's blood pressure, pulse, and oxygen saturations were monitored continuously. The scope was introduced through the anus and advanced to the terminal ileum. The colonoscopy was performed without difficulty. The patient tolerated the procedure well. The quality of the bowel preparation was good. The terminal ileum, ileocecal valve, appendiceal orifice, and rectum were photographed. After obtaining informed consent, the endoscope was passed under direct vision. Throughout the procedure, the patient's blood pressure, pulse, and oxygen saturations were monitored continuously. Findings: The examined esophagus was normal. The entire examined stomach was normal. Biopsies were taken with a cold forceps for Helicobacter pylori testing. The examined duodenum was normal. Impression: - Normal esophagus. - Normal stomach. Biopsied. - Normal examined duodenum. Recommendation: - Resume previous diet. - Use Protonix (pantoprazole) 40 mg PO daily. - Await pathology results. - Return to GI clinic as previously scheduled. Narciso Soto DO 08/05/2017 10:50:21 AM This report has been signed electronically. Note Initiated On: 08/05/2017 10:23 AM I attest to the content of the Intraoperative Record and orders documented therein, exceptions below
[2017-08-05 11:15] VITALS: BP 156/95; PULSE 65; O2SAT 96
--- NOTE | 2017-08-05 11:20 | Anesthesiology Progress Note ---
Anesthesia Post Op Note Date & Time Aug 05, 2017 at 11:20 Vital Signs Pain Intensity: 0 Vital Signs Past 12 Hours Date Time Temp Pulse Resp B/P (MAP) Pulse Ox O2 Delivery O2 Flow Rate FiO2 08/05/17 10:58 59 16 138/86 (103) 96 Room Air 08/05/17 10:43 68 16 122/81 (95) 97 Room Air 08/05/17 09:40 37.1 65 16 113/72 (86) 97 Room Air Notes Mental Status: alert / awake / arousable, participated in evaluation Pt Amnestic to Procedure: Yes Nausea / Vomiting: adequately controlled Pain: adequately controlled Airway Patency, RR, SpO2: stable & adequate BP & HR: stable & adequate Hydration State: stable & adequate Anesthetic Complications: no major complications apparent
== END | disposition home or self-care (01) ==
LOC: C.GI 09:17
PROVIDERS: ATTEND Internal Medicine
DX: K29.50 Unspecified chronic gastritis without bleeding (principal); K21.9 Gastro-esophageal reflux disease without esophagitis; Z83.79 Family history of other diseases of the digestive system; Z87.891 Personal history of nicotine dependence; Z79.02 Long term (current) use of antithrombotics/antiplatelets; Z79.82 Long term (current) use of aspirin; Z79.899 Other long term (current) drug therapy

== ENCOUNTER → 2017-08-23 | Day surgery (SDC) | payer OTHER ==
[2017-08-18 13:29] VITALS: Ht 188 cm; Wt 136.4 kg
[~2017-08-23] VITALS: Ht 188 cm; Wt 136.4 kg
[~2017-08-23] MED LIST changes: -FENTANYL CITRATE INJ 50 MCG/1 ML 2 ML VIAL ONE; +SODIUM CHLORIDE 0.9% 500ML 500 ML IV ONE
--- NOTE | 2017-08-23 10:24 | Endo History and Physical ---
History & Physical Date of Service: Aug 23, 2017. Chief Complaint: Diarrhea and bloating Referring Physician: Bob Levin History of Present Illness 46 yo CM who presents for colonoscopy secondary to diarrhea and bloating. Past Surgical History Hx Cardiac Surgery: Yes (HEART CATH, STENT X1) Hx Internal Defibrillator: No Hx Pacemaker: No Hx Abdominal Surgery: No Hx of Implantable Prosthesis: No Hx Post-Op Nausea and Vomiting: No Hx Cancer Surgery: No Hx Thoracic Surgery: No Hx Orthopedic: No Hx Urinary Tract Surgery: No Family History IBD Social History Smoking Status: Former Smoker Hx Substance Use: No Hx Alcohol Use: Yes (VERY RARELY) Allergies Coded Allergies: No Known Drug Allergy (Verified Allergy, Unknown, ., 08/18/17) Current Medications Reported Home Medications Medications Dose Route/Sig Max Daily Dose Days Date Category Ativan (Lorazepam) 1 Mg Tab 1 Mg PO Q6H PRN 08/05/17 Reported Prozac (Fluoxetine HCl) 20 Mg Cap 20 Mg PO QAM 07/22/17 Reported Aspirin Ec (Aspirin) 81 Mg Tab 81 Mg PO QAM 05/29/17 Reported Plavix (Clopidogrel Bisulfate) 75 Mg Tab 75 Mg PO QAM 05/29/17 Reported Lipitor (Atorvastatin Calcium) 80 Mg Tab 80 Mg PO HS 05/29/17 Reported Lopressor (Metoprolol Tartrate) 25 Mg Tab 12.5 Mg PO BID 05/29/17 Reported Rabeprazole Sodium 20 Mg Tab 20 Mg PO QAM 06/06/16 Reported Vital Signs Weight (Kilograms): 136.36 Height (Feet): 6 Height (Inches): 2 Physical Exam General Appearance: WD/WN, no apparent distress Respiratory/Chest: Auscultation: breath sounds normal Cardiovascular: Heart Auscultation: RRR Abdomen: Bowel Sounds: normal Inspection & Palpation: soft, non-distended, no tenderness, guarding & rebound Assessment and Plan Assessment: 46 yo CM who presents for colonoscopy secondary to diarrhea and bloating. Plan: Proceed with colonoscopy.
--- NOTE | 2017-08-23 11:28 | GI REPORT ---
Procedure Date: 08/23/2017 10:50 AM THIS REPORT HAS BEEN AMENDED Addendum Number: 1 Addendum Date: 08/23/2017 11:55:32 AM Indications for procedure: Diarrhea and Abdominal bloating. Procedure: Colonoscopy Indications: Screening for colorectal malignant neoplasm Medicines: Monitored Anesthesia Care Complications: No immediate complications. Estimated Blood Loss: Estimated blood loss: none. Procedure: Pre-Anesthesia Assessment: - Prior to the procedure, a History and Physical was performed, and patient medications and allergies were reviewed. The patient's tolerance of previous anesthesia was also reviewed. The risks and benefits of the procedure and the sedation options and risks were discussed with the patient. All questions were answered, and informed consent was obtained. Prior Anticoagulants: The patient last took aspirin 1 day and Plavix (clopidogrel) 10 days prior to the procedure. ASA Grade Assessment: III - A patient with severe systemic disease. After reviewing the risks and benefits, the patient was deemed in satisfactory condition to undergo the procedure. After I obtained informed consent, the scope was passed under direct vision. Throughout the procedure, the patient's blood pressure, pulse, and oxygen saturations were monitored continuously. The scope was introduced through the anus and advanced to the terminal ileum. The colonoscopy was performed without difficulty. The patient tolerated the procedure well. The quality of the bowel preparation was good. The terminal ileum, ileocecal valve, appendiceal orifice, and rectum were photographed. Findings: Multiple small-mouthed diverticula were found in the sigmoid colon. Non-bleeding internal hemorrhoids were found during retroflexion. The hemorrhoids were small. Several random biopsies were obtained with cold forceps for histology in the entire colon. Fluid aspiration for cytology was performed in the entire colon. Impression: - Diverticulosis in the sigmoid colon. - Non-bleeding internal hemorrhoids. - Several random biopsies were obtained in the entire colon. - Fluid aspiration was performed. Recommendation: - Resume previous diet. - Continue present medications. - Repeat colonoscopy for surveillance based on pathology results. - Return to primary care physician as previously scheduled. Narciso SotoDO 08/23/2017 11:27:36 AM This report has been signed electronically. Note Initiated On: 08/23/2017 10:50 AM I attest to the content of the Intraoperative Record and orders documented therein, exceptions below Narciso Velma Soto, 08/23/2017 11:55:55 AM This report has been signed electronically.
--- NOTE | 2017-08-23 11:37 | Anesthesiology Progress Note ---
Anesthesia Post Op Note Date & Time Aug 23, 2017 at 11:37 Vital Signs Pain Intensity: 0 Vital Signs Past 12 Hours Date Time Temp Pulse Resp B/P (MAP) Pulse Ox O2 Delivery O2 Flow Rate FiO2 08/23/17 11:35 69 20 119/80 (93) 96 Room Air 08/23/17 11:20 69 20 112/71 (85) 97 Room Air 08/23/17 10:28 36.9 73 20 147/92 (110) 96 Room Air Notes Mental Status: alert / awake / arousable, participated in evaluation Pt Amnestic to Procedure: Yes Nausea / Vomiting: adequately controlled Pain: adequately controlled Airway Patency, RR, SpO2: stable & adequate BP & HR: stable & adequate Hydration State: stable & adequate Anesthetic Complications: no major complications apparent
--- NOTE | 2017-08-23 11:44 | Discharge Instructions ---
Endoscopy Patient Instructions Date / Procedure(s) Performed Aug 23, 2017. Colonoscopy Allergy Information Coded Allergies: No Known Drug Allergy (Verified Allergy, Unknown, ., 08/23/17) Discharge Date / Findings Aug 23, 2017. Diverticulosis Internal hemorrhoids Random colon biopsies Stool aspirate collected Medication Instructions Stopped Medication(s): stopped Plavix 08/14,took ASA yesterday OK to resume all medications today as prescribed Reported Home Medications Medications Dose Route/Sig Max Daily Dose Days Date Category Ativan (Lorazepam) 1 Mg Tab 1 Mg PO Q6H PRN 08/05/17 Reported Prozac (Fluoxetine HCl) 20 Mg Cap 20 Mg PO QAM 07/22/17 Reported Aspirin Ec (Aspirin) 81 Mg Tab 81 Mg PO QAM 05/29/17 Reported Plavix (Clopidogrel Bisulfate) 75 Mg Tab 75 Mg PO QAM 05/29/17 Reported Lipitor (Atorvastatin Calcium) 80 Mg Tab 80 Mg PO HS 05/29/17 Reported Lopressor (Metoprolol Tartrate) 25 Mg Tab 12.5 Mg PO BID 05/29/17 Reported Rabeprazole Sodium 20 Mg Tab 20 Mg PO QAM 06/06/16 Reported Provider Instructions Activity Restrictions - No exercising or heavy lifting for 24 hours. - Do not drink alcohol the day of the procedure. - Do not drive a car or operate machinery until the day after the procedure. - Do not make any important decisions or sign important papers in 24 hours after the procedure. Following Day: - Return to full activity which may include returning to work/school. Diet Start your diet with liquids and light foods (jello, soup, juice, toast). Then eat your usual diet if not nauseated. Treatment For Common After Affects For mild abdominal pain, bloating, or excessive gas: - Rest - Eat lightly - Lie on right side Follow-Up Information Follow-up with Dr. Levin as scheduled Anesthesia Information What You Should Know You have had a procedure that required some medicine to reduce anxiety and discomfort. This treatment is called moderate sedation. After receiving the treatment, you may be sleepy, but you will be able to breathe on your own. The effects of the treatment may last for several hours. Follow these instructions along with Activity/Diet recommendations noted above: * Do NOT do anything where dizziness or clumsiness would be dangerous. * Rest quietly at home today, then you can be up and about tomorrow. * Have a responsible person stay with you the rest of today. * You may have had an I.V. today. If so, you may take the dressing off later today. Recommendations Call your doctor if: * Trouble breathing * Continuous vomiting for more than 24 hours * Temperature above 101 degrees * Severe abdominal pain or bloating * Pain not relieved by pain medicine ordered * There is increased drainage or redness from any incision * A large amount of rectal bleeding greater than 2-3 tablespoons. (If you had a polyp/s removed or have hemorrhoids, a small amount of blood - from the rectum is to be expected.) * You have any unanswered questions or concerns. IN THE EVENT OF A SERIOUS EMERGENCY, GO TO THE NEAREST EMERGENCY ROOM Your discharge instructions were prepared by provider Narciso Soto. Patient Instructions Signature Page Reza Jesus Patient (or Guardian) Signature/Date: I have read and understand the instructions given to me by my caregivers. Caregiver/RN/Doctor Signature/Date: The above-named patient and/or guardian has received patient instructions on this date. + Original Patient Signature Page (only) stays with chart. Please make copy for patient.
[2017-08-23 11:49] VITALS: BP 120/69; PULSE 72; O2SAT 96
== END | disposition home or self-care (01) ==
LOC: C.GI 10:09
PROVIDERS: ATTEND Internal Medicine
DX: R19.7 Diarrhea, unspecified (principal); R14.0 Abdominal distension (gaseous); K57.30 Diverticulosis of large intestine without perforation or abscess without bleeding; K64.8 Other hemorrhoids; I25.10 Atherosclerotic heart disease of native coronary artery without angina pectoris; I10 Essential (primary) hypertension; Z68.39 Body mass index [BMI] 39.0-39.9, adult; E66.9 Obesity, unspecified; Z79.82 Long term (current) use of aspirin; Z87.891 Personal history of nicotine dependence

== ENCOUNTER → 2017-09-12 | Outpatient (CLI) | payer OTHER ==
[~2017-09-12] VITALS: Ht 177.8 cm; Wt 130.2 kg
[~2017-09-12] MED LIST changes: -LIDOCAINE HCL 2% 2 ML VIAL (20MG/ML) ONE; -PROPOFOL IV EMULSION 10 MG/ML 20 ML VIAL IV ONE; +SINCALIDE INJ 2.6 MCG in SODIUM CHLORIDE 0.9% 100ML 100 ML IV ONE; -SODIUM CHLORIDE 0.9% 500ML 500 ML IV ONE
--- NOTE | 2017-09-12 12:43 | DIAGNOSTIC IMAGING REPORT ---
NUCLEAR MEDICINE HEPATIC BILIARY SCAN WITH EJECTION FRACTION ANALYSIS CLINICAL HISTORY: R14.0 Abdominal [id number] [id number] Intermittent diarrheaN COMPARISON STUDY: Biliary ultrasound dated 07/22/2017 FINDINGS: The patient was injected with 1.3 mCi of technetium 99m Choletec. Sequential anterior imaging was performed. Hepatic excretion appeared unremarkable. There was normal patches of activity into small bowel. The gallbladder was first visualized on the 10 minute image. At 1 hour, the patient was administered 2.6 mcg of sincalide utilizing a 30 minute intravenous infusion. The gallbladder ejection fraction was normal measuring 97%. IMPRESSION: 1. Normal study. No evidence of cystic duct obstruction. Normal gallbladder ejection fraction of 97%. Electronically signed by: Denis Taylor M.D. 09/12/2017 12:42 PM Dictated Date/Time: 09/12/2017 12:40 PM
== END | disposition home or self-care (01) ==
LOC: C.NUCL 10:11
PROVIDERS: ATTEND Registered Nurse
DX: R11.0 Nausea (principal); R14.0 Abdominal distension (gaseous); R19.7 Diarrhea, unspecified

== ENCOUNTER → 2017-11-10 | Outpatient (CLI) | payer OTHER ==
[~2017-11-10] MED LIST changes: -SINCALIDE INJ 2.6 MCG in SODIUM CHLORIDE 0.9% 100ML 100 ML IV ONE
[2017-11-10 09:33] LABS: MEAN CELL VOLUME 90.1 fL (80-100); MEAN CORPUSCULAR HEMOGLOBIN 31.5 pg (25-34); MEAN PLATELET VOLUME 10.5 fL (7.4-10.4); PLATELET COUNT 164 K/uL (130-400); RED BLOOD COUNT 4.66 M/uL (4.7-6.1); WHITE BLOOD COUNT 6.79 K/uL (4.8-10.8)
[2017-11-10 09:49] LABS: ALT/SGPT 34 U/L (12-78); AST/SGOT 18 U/L (15-37); BLOOD UREA NITROGEN 17 mg/dl (7-18); BUN/CREATININE RATIO 17.4 (10-20); CALCIUM 8.5 mg/dl (8.5-10.1); CARBON DIOXIDE 26 mmol/L (21-32); CHLORIDE 109 mmol/L (98-107); CREATININE 0.98 mg/dl (0.60-1.40); GLUCOSE 131 mg/dl (70-99); POTASSIUM 3.6 mmol/L (3.5-5.1); SODIUM 140 mmol/L (136-145)
[2017-11-10 09:51] LABS: ALB/GLOB RATIO 0.9 (0.9-2); ALKALINE PHOSPHATASE 111 U/L (45-117)
== END | disposition home or self-care (01) ==
LOC: C.LAB1850 07:53
PROVIDERS: ATTEND Internal Medicine Cardiovascular Disease
DX: I25.10 Atherosclerotic heart disease of native coronary artery without angina pectoris (principal); I10 Essential (primary) hypertension; E78.5 Hyperlipidemia, unspecified

== ENCOUNTER → 2017-11-24 | Day surgery (SDC) | payer OTHER ==
[2017-11-22 08:39] VITALS: BMI 36.7
[~2017-11-24] VITALS: Ht 188 cm; Wt 129.5 kg
[~2017-11-24] MED LIST changes: +BSP/10 PO; -FLUO20CA35 PO; +PANT1TAB3 PO; -RABE1TAB2 PO
[2017-11-24 08:15] VITALS: BP 126/72; PULSE 65; TEMP 36.6; O2SAT 98; Ht 188 cm; Wt 129.5 kg
--- NOTE | 2017-11-24 16:25 | Procedure Note ---
Breath Hydrogen Test Interpretation Assessment: No evidence of Small Intestinal Bacterial Overgrowth on this test. Plan: Return to ordering provider for further evaluation and recommendations.
== END | disposition home or self-care (01) ==
LOC: C.MTU 11-22 08:09 → EDSTATUS 11-22 08:30 → C.MTU 08:01
PROVIDERS: ATTEND Internal Medicine
DX: R14.0 Abdominal distension (gaseous) (principal); R19.7 Diarrhea, unspecified; R11.0 Nausea

== ENCOUNTER → 2017-12-27 | Outpatient (CLI) | payer OTHER | END | disposition home or self-care (01) | LOC: C.LAB1850 10:36 | PROVIDERS: ATTEND Internal Medicine Cardiovascular Disease | DX: I25.10 Atherosclerotic heart disease of native coronary artery without angina pectoris (principal); I10 Essential (primary) hypertension; E78.5 Hyperlipidemia, unspecified ==

== ENCOUNTER → 2018-06-22 | Outpatient (CLI) | payer OTHER ==
[2018-06-22 10:08] LABS: HEMOGLOBIN A1C 5.6 % (4.5-5.6)
== END | disposition home or self-care (01) ==
LOC: C.LAB1850 07:49
PROVIDERS: ATTEND Internal Medicine Cardiovascular Disease
DX: E78.5 Hyperlipidemia, unspecified (principal); R73.01 Impaired fasting glucose

== ENCOUNTER 2023-05-23 09:56 | Observation (INO) ==
[2023-05-23] MEDS ORDERED: HYDROmorphone INJ 1 MG/ML SYRINGE IV STA ×2 (11:32→17:59)
[2023-05-23] MEDS ORDERED: ONDANSETRON INJ 2 MG/ML 2 ML VIAL IV STA (11:32)
--- NOTE | 2023-05-23 11:36 | Emergency Department Note ---
History of Present Illness General Chief complaint: Back Injury/Pain Stated complaint: LOW BACK PAIN Time Seen by Provider: 05/23/23 11:22 Source: patient, RN notes reviewed and old records reviewed Mode of arrival: ambulatory Limitations: no limitations History of Present Illness Maximum Pain Intensity: 10 This patient 52-year-old male comes in with low back pain since Tuesday. He has had no injuries says he was bending over to pick something up and suddenly hurt since then he has significant pain. It is worse when he moves his feet feel tingly occasionally. Some numbness in his left lateral thigh which she says has been there chronically but is a little bit worse. No change in bowel or bladder function no overuse or injury no chest pain shortness of breath fever or chills or nausea or vomiting. He has been using [id number] pain medication and used 2 leftover Oxy IR's which helped a little bit Home Medications Medication Instructions Recorded Confirmed Type pantoprazole 40 mg tablet,delayed 40 mg PO DAILY #30 tabs 10/04/19 05/23/23 Rx release meclizine 25 mg tablet 25 mg PO TID PRN dizziness #14 tabs 07/30/21 05/23/23 Rx ondansetron 4 mg disintegrating 4 mg PO Q6H PRN nausea and 07/30/21 05/23/23 Rx tablet vomiting #14 tabs irbesartan 75 mg tablet 75 mg PO DAILY 09/21/21 05/23/23 History pioglitazone 30 mg tablet (Actos) 30 mg PO DAILY 09/21/21 05/23/23 History clopidogrel 75 mg tablet 75 mg PO DAILY #90 tabs 10/13/22 05/23/23 Rx rosuvastatin 40 mg tablet 40 mg PO DAILY #90 tabs 02/28/23 05/23/23 Rx acetaminophen 500 mg tablet 1,000 mg PO Q6H PRN Pain 05/23/23 05/23/23 History (Tylenol Extra Strength) amitriptyline 10 mg tablet 10 mg PO HS 05/23/23 05/23/23 History ezetimibe 10 mg tablet 10 mg PO QAM 05/23/23 05/23/23 History levocetirizine 5 mg tablet 5 mg PO QPM 05/23/23 05/23/23 History lorazepam 1 mg tablet 1 mg PO TID PRN Anxiety 05/23/23 05/23/23 History magnesium oxide 400 mg (241.3 mg 400 mg PO HS 05/23/23 05/23/23 History magnesium) tablet riboflavin (vitamin B2) 400 mg 400 mg PO HS 05/23/23 05/23/23 History tablet sertraline 25 mg tablet 25 mg PO QAM 05/23/23 05/23/23 History Allergies Allergy/AdvReac Type Severity Reaction Status Date / Time No Known Drug Allergies Allergy Unknown . Verified 05/23/23 12:38 Past Med/Surg History Medical History (Updated 05/23/23 @ 16:27 by Aaron Maxwell MD) Antiplatelet or antithrombotic long-term use Anxiety state, unspecified Chest pain Coronary artery disease Diverticulosis Dyslipidemia Elevated fasting glucose Internal hemorrhoids Palpitations Presence of stent in LAD coronary artery Surgical History H/O colonoscopy (08/2017) History of esophagogastroduodenoscopy (EGD) (07/2017) Stented coronary artery Family History Mother Crohn's disease Denies family history of Colorectal cancer Ulcerative colitis Social History Smoking Status: Current every day smoker Tobacco Type: Cigarettes Hx Alcohol Use: No Hx Substance Use: No Preferred Language: Frisian Visual Impairment: No Limitations Hearing Ability: Hard of Hearing [place] Former Required: No marital status: Current Living Situation: Spouse and Family current occupational status: employed 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 Feels Safe at Home: Yes Childhood Exposure to Second-Hand Smoke: Yes caffeine: Yes during the past year weight has: remained stable Dental Care, Regularly: No Physical Activity Frequency: Does not Exercise Seatbelt Use: always Sunscreen Use: Yes Review of Systems A total of 10 systems reviewed and were otherwise negative Physical Exam Vital Signs Vital Signs - 24 hr 05/23/23 09:57 05/23/23 11:48 05/23/23 11:48 Temperature 36.8 C Temperature Source Temporal Artery Scan Pulse Rate 79 Pulse Rate [Apical] 75 Pulse Rate from SpO2 Sensor Respiratory Rate 18 20 Respiratory Effort / Characteristics Non-Labored Spontaneous Non-Labored Respiratory Depth Normal Normal Respiratory Pattern Regular Blood Pressure 135/84 Blood Pressure [Left Arm] 113/71 Blood Pressure Mean 101 Blood Pressure Mean [Left Arm] 85 Pulse Oximetry 97 98 99 Oxygen Delivery Method Room Air Room Air Room Air Sepsis Recent Fever Within 48 Hours No Sepsis New/Unexplained Change in Mental Status No Sepsis Action Taken by Nursing No Action Required 05/23/23 11:53 05/23/23 13:27 05/23/23 11:45 Temperature Temperature Source Pulse Rate 70 69 Pulse Rate [Apical] 64 Pulse Rate from SpO2 Sensor 69 Respiratory Rate 20 14 Respiratory Effort / Characteristics Non-Labored Respiratory Depth Normal Respiratory Pattern Blood Pressure Blood Pressure [Left Arm] 131/87 Blood Pressure Mean Blood Pressure Mean [Left Arm] 101 Pulse Oximetry 95 98 Oxygen Delivery Method Room Air Sepsis Recent Fever Within 48 Hours Sepsis New/Unexplained Change in Mental Status Sepsis Action Taken by Nursing 05/23/23 11:50 05/23/23 11:50 05/23/23 12:00 Temperature Temperature Source Pulse Rate 71 71 Pulse Rate [Apical] Pulse Rate from SpO2 Sensor 71 70 Respiratory Rate 15 14 Respiratory Effort / Characteristics Respiratory Depth Respiratory Pattern Blood Pressure 113/71 Blood Pressure [Left Arm] Blood Pressure Mean 75 Blood Pressure Mean [Left Arm] Pulse Oximetry 98 98 Oxygen Delivery Method Sepsis Recent Fever Within 48 Hours Sepsis New/Unexplained Change in Mental Status Sepsis Action Taken by Nursing 05/23/23 12:30 05/23/23 13:00 05/23/23 13:28 Temperature Temperature Source Pulse Rate 69 60 Pulse Rate [Apical] Pulse Rate from SpO2 Sensor 69 61 Respiratory Rate 12 13 Respiratory Effort / Characteristics Respiratory Depth Respiratory Pattern Blood Pressure 131/87 Blood Pressure [Left Arm] Blood Pressure Mean 98 Blood Pressure Mean [Left Arm] Pulse Oximetry 94 96 Oxygen Delivery Method Sepsis Recent Fever Within 48 Hours Sepsis New/Unexplained Change in Mental Status Sepsis Action Taken by Nursing 05/23/23 13:28 05/23/23 13:30 05/23/23 13:30 Temperature Temperature Source Pulse Rate 66 64 Pulse Rate [Apical] Pulse Rate from SpO2 Sensor 67 63 Respiratory Rate 11 L 12 Respiratory Effort / Characteristics Respiratory Depth Respiratory Pattern Blood Pressure 134/85 Blood Pressure [Left Arm] Blood Pressure Mean 92 Blood Pressure Mean [Left Arm] Pulse Oximetry 91 95 Oxygen Delivery Method Sepsis Recent Fever Within 48 Hours Sepsis New/Unexplained Change in Mental Status Sepsis Action Taken by Nursing 05/23/23 14:00 05/23/23 14:30 05/23/23 14:31 Temperature Temperature Source Pulse Rate 66 70 Pulse Rate [Apical] Pulse Rate from SpO2 Sensor 69 Respiratory Rate 12 12 Respiratory Effort / Characteristics Respiratory Depth Respiratory Pattern Blood Pressure 117/58 L Blood Pressure [Left Arm] Blood Pressure Mean 75 Blood Pressure Mean [Left Arm] Pulse Oximetry 94 Oxygen Delivery Method Sepsis Recent Fever Within 48 Hours Sepsis New/Unexplained Change in Mental Status Sepsis Action Taken by Nursing 05/23/23 14:31 05/23/23 15:00 05/23/23 15:00 Temperature Temperature Source Pulse Rate 75 70 Pulse Rate [Apical] Pulse Rate from SpO2 Sensor 76 69 Respiratory Rate 11 L 15 Respiratory Effort / Characteristics Respiratory Depth Respiratory Pattern Blood Pressure 115/72 Blood Pressure [Left Arm] Blood Pressure Mean 88 Blood Pressure Mean [Left Arm] Pulse Oximetry 93 93 Oxygen Delivery Method Sepsis Recent Fever Within 48 Hours Sepsis New/Unexplained Change in Mental Status Sepsis Action Taken by Nursing General: Well developed well nourished middle-age male sitting in a wheelchair and appears in no acute distress, breathing comfortably on room air. Normal speech HEENT: Normal cephalic atraumatic. Pupils are equal round and reactive to light. Extraocular movements are intact. Oropharynx is pink with moist mucous membranes. No swelling of the mouth lips or tongue. Neck: Supple with a midline trachea. No meningeal signs or stiffness, no JVD or bruits. No Stridor. Chest: Clear to auscultation bilaterally. No wheezes or rhonchi. No increased work of breathing. Heart: Regular rate and rhythm without murmurs or gallops. Abdomen: Soft nontender, nondistended without rebound guarding or rigidity. Extremities: No cyanosis clubbing or edema. No calf tenderness or assymetry. His back does hurt with movement of the legs Spine/Back. Non tender to palpation. No CVA tenderness Skin: Good turgor without rashes. Neurologic exam: In the lower extremities, motor and sensation are intact and symmetrical throughout. He has brisk reflexes that are symmetrical in Achilles and patellar. Course Administered Medications Discontinued Medications Hydromorphone HCl (Hydromorphone Inj 1 Mg/Ml Syringe) 1 mg IV NOW STA Stop: 05/23/23 11:33 Last Admin: 05/23/23 11:46 Dose: 1 mg Documented By: DAVID Hydromorphone HCl (Hydromorphone Inj 0.5 Mg/0.5 Ml Syr) 0.5 mg IV NOW STA Stop: 05/23/23 13:35 Last Admin: 05/23/23 13:39 Dose: 0.5 mg Documented By: ES Methylprednisolone (Methylprednisolone 125 Mg/2 Ml Vial) 125 mg IV NOW STA Stop: 05/23/23 13:35 Last Admin: 05/23/23 13:39 Dose: 125 mg Documented By: DAVID Ondansetron HCl (Ondansetron Inj 2 Mg/Ml 2 Ml Vial) 4 mg IV NOW STA Stop: 05/23/23 11:33 Last Admin: 05/23/23 11:46 Dose: 4 mg Documented By: DAVID Medical Decision Making Differential Diagnosis Sciatica, musculoskeletal, lumbar disc disease, infection, UTI, electrolyte or metabolic abnormality Medical Records Attestation: I reviewed the patient's medical records. Home Medications Current Medication List: was personally reviewed by me Laboratory Data Attestation: I reviewed the patient's lab results. 05/23/23 11:51 05/23/23 11:51 Lab Results 05/23/23 05/23/23 Range/Units 11:51 11:51 WBC 7.73 (4.8-10.8) K/ul RBC 4.83 (4.70-6.10) M/uL Hgb 14.7 (14.0-18.0) g/dl Hct 42.8 (42.0-52.0) % MCV 88.6 (80.0-100.0) fL MCH 30.4 (25.0-34.0) pg MCHC 34.3 (32.0-36.0) g/dL RDW Std Deviation 43.6 (36.4-46.3) fL RDW Coeff of Miguel 13.5 (11.5-14.5) % Plt Count 196 (130-400) K/uL MPV 10.1 (9.4-12.4) fL Immature Gran % (Auto) 0.4 % Neut % (Auto) 59.9 % Lymph % (Auto) 30.1 % [place] % (Auto) 8.4 % Eos % (Auto) 0.9 % Baso % (Auto) 0.3 % Neut # (Auto) 4.63 (1.40-6.50) K/uL Lymph # (Auto) 2.33 (1.2-3.4) K/uL [place] # (Auto) 0.65 H (0.11-0.59) K/uL Eos # (Auto) 0.07 (0-0.50) K/uL Baso # (Auto) 0.02 (0-0.2) K/uL Immature Gran # (Auto) 0.03 (0.01-0.20) K/uL Sodium 137 (136-145) mmol/L Potassium 4.0 (3.5-5.1) mmol/L Chloride 107 (98-107) mmol/L Carbon Dioxide 23 (21-32) mmol/L Anion Gap 7 (3-11) BUN 17 (6-23) mg/dl Creatinine 0.89 (0.6-1.4) mg/dl Est Cr Clr Drug Dosing 149.8 ml/min Est GFR ( Amer) 113.1 ml/min Est GFR (Non-Af Amer) 97.6 ml/min BUN/Creatinine Ratio 19.1 (10-20) Glucose 103 H (70-99(Fasting)) mg/dl Calcium 9.5 (8.6-10.3) mg/dl Total Bilirubin 0.6 (0.2-1.0) mg/dl AST 16 (13-39) U/L ALT 16 (7-52) U/L Alkaline Phosphatase 84 (34-104) U/L Total Protein 7.7 (6.0-8.3) gm/dl Albumin 4.2 (3.4-5.0) gm/dl Globulin 3.5 (2.5-4.0) gm/dl Albumin/Globulin Ratio 1.2 (0.9-2) Imaging Data Attestation: I personally reviewed and interpreted this imaging study as follows: My Impression: Lumbar x-rayno fracture or dislocation seen. no significant disc space narrowing Radiologist's Impression: Lumbar Spine X-Ray 05/23/23 10:11 LUMBAR SPINE 5 VIEWS HISTORY: Low back pain COMPARISON: None. FINDINGS: There is no fracture. No subluxation. Minimal levoscoliosis of the lumbar spine. The sacrum is intact. Minimal disc space narrowing and small endplate osteophytes at L3-L4 and L4-L5. Remaining disc spaces are preserved. Mild facet degenerative changes within the lower lumbar spine. IMPRESSION: No fracture or subluxation within the lumbar spine. Degenerative changes as described above. ACT 112: Negative or not required by law. Electronically signed by: Declan Robles M.D. 05/23/2023 11:48 AM MDM Narrative This patient comes in as described above. He was placed in room B3. He is having back pain. I did see him after he came back from the x-ray. He has pain with movement. IV access was established he is not driving his will be driving I gave him Dilaudid 1 mg IV and Zofran 4 mg IV. Blood work was obtained to further review the x-rays. He has no fever or white count to suggest infection. He has no electrolyte or metabolic abnormalities. Despite getting the Dilaudid, he was still in a lot of pain with any movement. He was given additional Dilaudid 0.5 mg IV as well as Solu-Medrol 125 mg IV and given his ongoing pain despite this I did order an MRI after discussing the risk and benefits with the patient. Impression & Plan Low back pain, Lumbar disc disease, History of CAD (coronary artery disease) Discharge Plan Visit Data Chief Complaint: Back Injury/Pain Stated Complaint: LOW BACK PAIN ED Provider: Aaron Maxwell Discharge Problem: Low back pain, Lumbar disc disease, History of CAD (coronary artery disease) Forms Stand Alone Forms: My [facility] [place] [employer] Prescriptions Prescriptions: No Action pantoprazole 40 mg tablet,delayed release (DR/EC) 40 mg PO DAILY Qty: 30 5RF clopidogrel 75 mg tablet 75 mg PO DAILY Qty: 90 3RF rosuvastatin 40 mg tablet 40 mg PO DAILY Qty: 90 3RF irbesartan 75 mg tablet 75 mg PO DAILY pioglitazone [Actos] 30 mg tablet 30 mg PO DAILY acetaminophen [Tylenol Extra Strength] 500 mg Tablet 1,000 mg PO Q6H PRN (Reason: Pain) magnesium oxide 400 mg (241.3 mg magnesium) tablet 400 mg PO HS amitriptyline 10 mg tablet 10 mg PO HS sertraline 25 mg tablet 25 mg PO QAM lorazepam 1 mg tablet 1 mg PO TID PRN (Reason: Anxiety) ezetimibe 10 mg tablet 10 mg PO QAM levocetirizine 5 mg tablet 5 mg PO QPM riboflavin (vitamin B2) 400 mg tablet 400 mg PO HS ondansetron 4 mg tablet,disintegrating 4 mg PO Q6H PRN (Reason: nausea and vomiting) Qty: 14 0RF meclizine 25 mg tablet 25 mg PO TID PRN (Reason: dizziness) Qty: 14 0RF Referrals Referrals: Bob Levin [Outside Practitioners] -
--- NOTE | 2023-05-23 11:50 | XRay Report ---
LUMBAR SPINE 5 VIEWS HISTORY: Low back pain COMPARISON: None. FINDINGS: There is no fracture. No subluxation. Minimal levoscoliosis of the lumbar spine. The sacru m is intact. Minimal disc space narrowing and small endplate osteophytes at L3-L4 and L4-L5. Remainin g disc spaces are preserved. Mild facet degenerative changes within the lower lumbar spine. IMPRESSION: No fracture or subluxation within the lumbar spine. Degenerative changes as described above. ACT 112: Negative or not required by law. Electronically signed by: Declan Robles M.D. 05/23/2023 11:48 AM
[2023-05-23 12:27] LABS: Albumin Globulin Ratio 1.2 (0.9-2); Albumin Level 4.2 gm/dl (3.4-5.0); BUN Creatinine Ratio 19.1 (10-20); Bilirubin,Total 0.6 mg/dl (0.2-1.0); Calcium 9.5 mg/dl (8.6-10.3); Creatinine Clr Calc Pharmacy 149.8 ml/min; Est GFR (African American) 113.1 ml/min; Est GFR (Non-African American) 97.6 ml/min; Globulin 3.5 gm/dl (2.5-4.0); Total Protein 7.7 gm/dl (6.0-8.3)
[2023-05-23 12:37] LABS: Basophils # (auto) 0.02 K/uL (0-0.2); Basophils % (auto) 0.3 %; Eosinophils # (auto) 0.07 K/uL (0-0.50); Eosinophils % (auto) 0.9 %; Hematocrit (blood only) 42.8 % (42.0-52.0); Hemoglobin 14.7 g/dl (14.0-18.0); Immature Granulocytes # (auto) 0.03 K/uL (0.01-0.20); Immature Granulocytes % (auto) 0.4 %; Lymphocytes # (auto) 2.33 K/uL (1.2-3.4); Lymphocytes % (auto) 30.1 %; Mean Corpuscular Hemoglobin 30.4 pg (25.0-34.0); Mean Corpuscular Hgb Conc 34.3 g/dL (32.0-36.0); Mean Corpuscular Volume 88.6 fL (80.0-100.0); Mean Platelet Volume 10.1 fL (9.4-12.4); Monocytes # (auto) 0.65 K/uL (0.11-0.59); Monocytes % (auto) 8.4 %; Neutrophils # (auto) 4.63 K/uL (1.40-6.50); Neutrophils % (auto) 59.9 %; Platelet Count 196 K/uL (130-400); RDW Coefficient of Variation 13.5 % (11.5-14.5); RDW Standard Deviation 43.6 fL (36.4-46.3); Red Blood Count 4.83 M/uL (4.70-6.10); White Blood Count 7.73 K/ul (4.8-10.8)
[2023-05-23] MEDS ORDERED: methylPREDNISolone 125 MG/2 ML VIAL IV STA (13:34)
[2023-05-23] MEDS ORDERED: HYDROmorphone INJ 0.5 MG/0.5 ML SYR IV STA (13:34)
--- NOTE | 2023-05-23 16:48 | Emergency Department Note ---
ED Visit Note 1646: Signout from Dr. Covington. 52-year-old male with back pain. MRI is pending. 192: Vital signs stable. Patient MRI shows no evidence of cord compression small disc bulge but no compression of the nerve roots. I went to reassess the patient and the patient state that they did not feel comfortable going home secondary to patient's pain. Spoke with case management they were unable to place the patient in any sort of rehab facility like [facility]. [facility] and have PT and OT consults. Spoke with Dr. Edwards who will admit the patient to his service .
--- NOTE | 2023-05-23 18:56 | Magnetic Resonance Report ---
LUMBAR SPINE MRI HISTORY: low back pain, down left leg TECHNIQUE: Multiplanar multisequence MRI of the lumbar spine was performed without the use of contras t. COMPARISON: Lumbar spine radiograph 05/23/2023. FINDINGS: For the purpose of the report the L5-S1 disc space will be located on axial image 27 of 30. No fracture or subluxation within the lumbar spine. The conus terminates at the L1 level. A few small vertebral body hemangiomas are noted at T12 and L2. No suspicious osseous lesions identified. Minima l disc space narrowing and disc desiccation L3-L4 and L4-L5. There is also minimal disc space narrowi ng at L5-S1. Paravertebral soft tissues are unremarkable. Subcutaneous edema seen within the lumbar r egion. Minimal levoscoliosis of the lumbar spine. L1-L2: No significant central canal or neural foraminal narrowing. L2-L3: No significant central canal or neural foraminal narrowing. L3-L4: Small broad-based posterior disc bulge without significant central canal or neural foraminal n arrowing. L4-L5: Small broad-based posterior disc bulge without significant central canal or neural foraminal n arrowing . This disc bulge abuts but does not displace the transiting bilateral L5 nerve roots. L5-S1: No significant central canal or neural foraminal narrowing. IMPRESSION: 1. No fractures or subluxation within the lumbar spine. 2. Mild degenerative changes as described above without significant central canal or neural foraminal narrowing. 3. The small broad-based posterior disc bulge at L4-5 abuts but does not displace the transiting bila teral L5 nerve roots. ACT 112: Negative or not required by law. Electronically signed by: Declan Robles M.D. 05/23/2023 6:54 PM
--- NOTE | 2023-05-23 20:32 | History & Physical Report ---
Date of Service May 23, 2023 Assessment & Plan (1) Low back pain: Plan: 52-year-old male with past medical significant for type 2 diabetes, hyperlipidemia, CAD, hypertension, morbid obesity, GERD, general anxiety disorder, tobacco abuse presents with severe back pain. Severe back pain MRI findings as above. Showing small broad-based disc bulge at L4-L5 but does not displace the transiting bilateral L5 nerve roots. Received steroids in the ER and IV Dilaudid. Ambulatory dysfunction secondary to severe pain. Will observe in the hospital PT OT Ortho consult in a.m. Pain control. Diabetes type 2 Hold home p.o. medications Placed on insulin sliding scale We will monitor the blood sugars We will follow HbA1c levels. History of CAD On Plavix and statin Currently seems stable. Morbid obesity Needs counseling. Tobacco abuse Needs counseling. Hypertension On irbesartan Will monitor the blood pressure. Generalized anxiety disorder On Zoloft, on Ativan as needed, on amitriptyline. Hyperlipidemia On Crestor and Zetia. DVT prophylaxis Lovenox. Disposition Observe in medical floor Await Ortho and PT OT evaluation. Full code. History of Present Illness Chief Complaint: Intractable back pain Primary Care Provider: Oj Sarah MD This 52-year-old male with past medical history significant for type 2 diabetes, hyperlipidemia, history of CAD, hypertension, morbid obesity, GERD, sensorineural hearing loss, generalized anxiety disorder, tobacco abuse presents with severe back pain since last Tuesday. Patient states he was bending down in the bathroom when the pain started. Denies any heavy lifting or injury. Says when he is lying down pain is not present but when he moves the pain is 10/10 in severity. There is some numbness in the posterior aspect of the left thigh region. Denies any stool or urinary incontinence. Can move his lower extremities. Today had a slight headache. Denies any dizziness. No blurred visions, no earaches, no runny nose, no sore throat, no cough, no difficulty swallowing. No fevers. Appetite is okay. No chest pain or shortness of breath . No nausea or abdominal pain. Normal bowel and bladder movements. Hemodynamics are stable. Allergies Allergy/AdvReac Type Severity Reaction Status Date / Time No Known Drug Allergies Allergy Unknown . Verified 05/23/23 12:38 Home Medications Medication Instructions Recorded Confirmed Type pantoprazole 40 mg tablet,delayed 40 mg PO DAILY #30 tabs 11/21/19 07/10/23 Rx release meclizine 25 mg tablet 25 mg PO TID PRN dizziness #14 tabs 07/30/21 05/23/23 Rx ondansetron 4 mg disintegrating 4 mg PO Q6H PRN nausea and 07/30/21 05/23/23 Rx tablet vomiting #14 tabs irbesartan 75 mg tablet 75 mg PO DAILY 09/21/21 05/23/23 History pioglitazone 30 mg tablet (Actos) 30 mg PO DAILY 09/21/21 05/23/23 History clopidogrel 75 mg tablet 75 mg PO DAILY #90 tabs 10/13/22 05/23/23 Rx rosuvastatin 40 mg tablet 40 mg PO DAILY #90 tabs 02/28/23 05/23/23 Rx acetaminophen 500 mg tablet 1,000 mg PO Q6H PRN Pain 05/23/23 05/23/23 History (Tylenol Extra Strength) amitriptyline 10 mg tablet 10 mg PO HS 05/23/23 05/23/23 History ezetimibe 10 mg tablet 10 mg PO QAM 05/23/23 05/23/23 History levocetirizine 5 mg tablet 5 mg PO QPM 05/23/23 05/23/23 History lorazepam 1 mg tablet 1 mg PO TID PRN Anxiety 05/23/23 05/23/23 History magnesium oxide 400 mg (241.3 mg 400 mg PO HS 05/23/23 05/23/23 History magnesium) tablet riboflavin (vitamin B2) 400 mg 400 mg PO HS 05/23/23 05/23/23 History tablet sertraline 25 mg tablet 25 mg PO QAM 05/23/23 05/23/23 History Past Med/Surg History Medical History Antiplatelet or antithrombotic long-term use Anxiety state, unspecified Chest pain Coronary artery disease Diverticulosis Dyslipidemia Elevated fasting glucose Internal hemorrhoids Palpitations Presence of stent in LAD coronary artery Surgical History H/O colonoscopy (08/2017) History of esophagogastroduodenoscopy (EGD) (07/2017) Stented coronary artery Family History Mother Crohn's disease Denies family history of Colorectal cancer Ulcerative colitis Social History Smoking Status: Current every day smoker Tobacco Type: Cigarettes Hx Alcohol Use: No Hx Substance Use: No Preferred Language: Brazilian Visual Impairment: No Limitations Hearing Ability: Hard of Hearing Chemical Laboratory Scientist Required: No marital status: Current Living Situation: Spouse and Family current occupational status: employed 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 Feels Safe at Home: Yes Childhood Exposure to Second-Hand Smoke: Yes caffeine: Yes during the past year weight has: remained stable Dental Care, Regularly: No Physical Activity Frequency: Does not Exercise Seatbelt Use: always Sunscreen Use: Yes Review of Systems Review of Systems: All systems reviewed & are unremarkable except as noted in Subjective Physical Exam Physical Exam: NEEDS EDITING General- adult Head- atraumatic Eyes- PERRL, ENT- oropharynx clear Neck- supple, no JVD, Lungs- clear to auscultation and percussion Heart- regular rhythm; no murmur, no gallop, no rub appreciated Abdomen- normal bowel sounds, soft, nontender, no masses or hepatosplenomegaly Extremities- no pretibial edema, no erythema seen. Neuro- alert, oriented x 3; PERRL, no facial palsy; no dysarthria; moves extremities. Musculoskeletal Left SLR test positive Skin- warm & dry Results & Data Results & Data Vital Signs (Past 12 Hours) Vital Signs Temp Pulse Pulse Resp BP BP Pulse Ox 05/23/23 19:35 72 05/23/23 19:00 78 9 L 93 05/23/23 19:00 126/77 05/23/23 18:30 75 12 92 05/23/23 18:30 95/74 L 05/23/23 18:00 93 05/23/23 18:00 124/70 05/23/23 17:30 90 05/23/23 17:30 130/77 05/23/23 17:00 96 05/23/23 17:00 126/80 05/23/23 16:53 119/81 05/23/23 16:53 93 05/23/23 16:52 93 05/23/23 15:30 69 16 91 05/23/23 15:30 120/72 05/23/23 15:00 70 15 93 05/23/23 15:00 115/72 05/23/23 14:31 75 11 L 93 05/23/23 14:31 117/58 L 05/23/23 14:30 70 12 94 05/23/23 14:00 66 12 05/23/23 13:30 64 12 95 05/23/23 13:30 134/85 05/23/23 13:28 66 11 L 91 05/23/23 13:28 131/87 05/23/23 13:00 60 13 96 05/23/23 12:30 69 12 94 05/23/23 12:00 71 14 98 05/23/23 11:50 71 15 98 05/23/23 11:50 113/71 05/23/23 11:45 69 14 98 05/23/23 13:27 64 20 131/87 95 05/23/23 11:53 70 05/23/23 11:48 99 05/23/23 11:48 75 20 113/71 98 05/23/23 09:57 36.8 C 79 18 135/84 97 O2 Del Method 05/23/23 19:35 05/23/23 19:00 Room Air 05/23/23 19:00 05/23/23 18:30 05/23/23 18:30 05/23/23 18:00 05/23/23 18:00 05/23/23 17:30 05/23/23 17:30 05/23/23 17:00 05/23/23 17:00 05/23/23 16:53 05/23/23 16:53 05/23/23 16:52 05/23/23 15:30 05/23/23 15:30 05/23/23 15:00 05/23/23 15:00 05/23/23 14:31 05/23/23 14:31 05/23/23 14:30 05/23/23 14:00 05/23/23 13:30 05/23/23 13:30 05/23/23 13:28 05/23/23 13:28 05/23/23 13:00 05/23/23 12:30 05/23/23 12:00 05/23/23 11:50 05/23/23 11:50 05/23/23 11:45 05/23/23 13:27 Room Air 05/23/23 11:53 05/23/23 11:48 Room Air 05/23/23 11:48 Room Air 05/23/23 09:57 Room Air Diagnostic Findings Laboratory Results WBC 7.73 K/ul (4.8-10.8) 05/23/23 11:51 RBC 4.83 M/uL (4.70-6.10) 05/23/23 11:51 Hgb 14.7 g/dl (14.0-18.0) 05/23/23 11:51 Hct 42.8 % (42.0-52.0) 05/23/23 11:51 MCV 88.6 fL (80.0-100.0) 05/23/23 11:51 MCH 30.4 pg (25.0-34.0) 05/23/23 11:51 MCHC 34.3 g/dL (32.0-36.0) 05/23/23 11:51 RDW Std Deviation 43.6 fL (36.4-46.3) 05/23/23 11:51 RDW Coeff of Miguel 13.5 % (11.5-14.5) 05/23/23 11:51 Plt Count 196 K/uL (130-400) 05/23/23 11:51 MPV 10.1 fL (9.4-12.4) 05/23/23 11:51 Immature Gran % (Auto) 0.4 % 05/23/23 11:51 Neut % (Auto) 59.9 % 05/23/23 11:51 Lymph % (Auto) 30.1 % 05/23/23 11:51 Osborne % (Auto) 8.4 % 05/23/23 11:51 Eos % (Auto) 0.9 % 05/23/23 11:51 Baso % (Auto) 0.3 % 05/23/23 11:51 Neut # (Auto) 4.63 K/uL (1.40-6.50) 05/23/23 11:51 Lymph # (Auto) 2.33 K/uL (1.2-3.4) 05/23/23 11:51 Osborne # (Auto) 0.65 K/uL (0.11-0.59) H 05/23/23 11:51 Eos # (Auto) 0.07 K/uL (0-0.50) 05/23/23 11:51 Baso # (Auto) 0.02 K/uL (0-0.2) 05/23/23 11:51 Immature Gran # (Auto) 0.03 K/uL (0.01-0.20) 05/23/23 11:51 Sodium 137 mmol/L (136-145) 05/23/23 11:51 Potassium 4.0 mmol/L (3.5-5.1) 05/23/23 11:51 Chloride 107 mmol/L (98-107) 05/23/23 11:51 Carbon Dioxide 23 mmol/L (21-32) 05/23/23 11:51 Anion Gap 7 (3-11) 05/23/23 11:51 BUN 17 mg/dl (6-23) 05/23/23 11:51 Creatinine 0.89 mg/dl (0.6-1.4) 05/23/23 11:51 Est Cr Clr Drug Dosing 149.8 ml/min 05/23/23 11:51 Est GFR ( Amer) 113.1 ml/min 05/23/23 11:51 Est GFR (Non-Af Amer) 97.6 ml/min 05/23/23 11:51 BUN/Creatinine Ratio 19.1 (10-20) 05/23/23 11:51 Glucose 103 mg/dl (70-99(Fasting)) H 05/23/23 11:51 Calcium 9.5 mg/dl (8.6-10.3) 05/23/23 11:51 Total Bilirubin 0.6 mg/dl (0.2-1.0) 05/23/23 11:51 AST 16 U/L (13-39) 05/23/23 11:51 ALT 16 U/L (7-52) 05/23/23 11:51 Alkaline Phosphatase 84 U/L (34-104) 05/23/23 11:51 Total Protein 7.7 gm/dl (6.0-8.3) 05/23/23 11:51 Albumin 4.2 gm/dl (3.4-5.0) 05/23/23 11:51 Globulin 3.5 gm/dl (2.5-4.0) 05/23/23 11:51 Albumin/Globulin Ratio 1.2 (0.9-2) 05/23/23 11:51 SARS-CoV-2, RNA, NAAT NEGATIVE (NEGATIVE) 05/23/23 19:14 Impressions Lumbar Spine X-Ray 05/23/23 10:11 LUMBAR SPINE 5 VIEWS HISTORY: Low back pain COMPARISON: None. FINDINGS: There is no fracture. No subluxation. Minimal levoscoliosis of the lumbar spine. The sacrum is intact. Minimal disc space narrowing and small endplate osteophytes at L3-L4 and L4-L5. Remaining disc spaces are preserved. Mild facet degenerative changes within the lower lumbar spine. IMPRESSION: No fracture or subluxation within the lumbar spine. Degenerative changes as described above. ACT 112: Negative or not required by law. Electronically signed by: Declan Robles M.D. 05/23/2023 11:48 AM Lumbar Spine MRI 05/23/23 13:33 LUMBAR SPINE MRI HISTORY: low back pain, down left leg TECHNIQUE: Multiplanar multisequence MRI of the lumbar spine was performed without the use of contrast. COMPARISON: Lumbar spine radiograph 05/23/2023. FINDINGS: For the purpose of the report the L5-S1 disc space will be located on axial image 27 of 30. No fracture or subluxation within the lumbar spine. The conus terminates at the L1 level. A few small vertebral body hemangiomas are noted at T12 and L2. No suspicious osseous lesions identified. Minimal disc space narrowing and disc desiccation L3-L4 and L4-L5. There is also minimal disc space narrowing at L5- S1. Paravertebral soft tissues are unremarkable. Subcutaneous edema seen within the lumbar region. Minimal levoscoliosis of the lumbar spine. L1-L2: No significant central canal or neural foraminal narrowing. L2-L3: No significant central canal or neural foraminal narrowing. L3-L4: Small broad-based posterior disc bulge without significant central canal or neural foraminal narrowing. L4-L5: Small broad-based posterior disc bulge without significant central canal or neural foraminal narrowing . This disc bulge abuts but does not displace the transiting bilateral L5 nerve roots. L5-S1: No significant central canal or neural foraminal narrowing. IMPRESSION: 1. No fractures or subluxation within the lumbar spine. 2. Mild degenerative changes as described above without significant central canal or neural foraminal narrowing. 3. The small broad-based posterior disc bulge at L4-5 abuts but does not displace the transiting bilateral L5 nerve roots. ACT 112: Negative or not required by law. Electronically signed by: Declan Robles M.D. 05/23/2023 6:54 PM Code Status & VTE Plan VTE Prophylaxis Plan VTE Prophylaxis will be ordered: Yes (1) Low back pain Back pain laterality: midline Chronicity: acute Sciatica laterality: sciatica of left side Sciatica presence: with sciatica Qualified Code(s): M54.42 - Lumbago with sciatica, left side
[2023-05-23] MEDS ORDERED: NON-FORMULARY MEDICATION (Riboflavin (Vitamin B2) 400 mg tablet) PO SCH (22:25)
[2023-05-23] MEDS ORDERED: ONDANSETRON INJ 2 MG/ML 2 ML VIAL IV PRN (22:25)
[2023-05-23] MEDS ORDERED: GLUCOSE 40% GEL 15 GM TUBE PO PRN (22:25)
[2023-05-23] MEDS ORDERED: DEXTROSE 50% 50 ML SYRINGE IV PRN (22:25)
[2023-05-23] MEDS ORDERED: MECLIZINE HCL 25 MG TAB PO PRN (22:25)
[2023-05-23] MEDS ORDERED: LORazepam 1 MG TAB PO PRN (22:25)
[2023-05-23] MEDS ORDERED: GLUCAGON FOR INJ 1 MG VIAL SQ PRN (22:25)
[2023-05-23] MEDS ORDERED: GLUCOSE 10 TAB/TUBE PO PRN (22:25)
[2023-05-23] MEDS ORDERED: CARBOHYDRATES FOR HYPOGLYCEMIA PO PRN (22:25)
[2023-05-23] MEDS ORDERED: HYDROmorphone INJ 0.5 MG/0.5 ML SYR IV PRN (22:25)
[2023-05-23] MEDS ORDERED: POLYETHYLENE (MIRALAX) 17 GM PACK PO PRN (22:25)
[2023-05-23] MEDS: INSULIN ASPART PER UNIT CHARGE SC SCH (23:26)
[2023-05-23] MEDS: ACETAMINOPHEN 325 MG TAB PO PRN (23:27)
[2023-05-23] MEDS: CETIRIZINE HCL 10 MG TABLET PO SCH (23:29)
[2023-05-23] MEDS: MAGNESIUM OXIDE 400 MG TAB PO SCH (23:29)
[2023-05-23] MEDS: ENOXAPARIN INJ 40 MG/0.4 ML SYR SQ SCH (23:29)
[2023-05-23] MEDS: AMITRIPTYLINE HCL 10 MG TAB PO SCH (23:30)
[2023-05-24] MEDS: ACETAMINOPHEN 325 MG TAB PO PRN (06:35)
[2023-05-24 06:45] LABS: Basophils # (auto) 0.01 K/uL (0-0.2); Basophils % (auto) 0.1 %; Hematocrit (blood only) 40.7 % (42.0-52.0); Hemoglobin 14.3 g/dl (14.0-18.0); Immature Granulocytes # (auto) 0.09 K/uL (0.01-0.20); Immature Granulocytes % (auto) 0.6 %; Lymphocytes # (auto) 1.44 K/uL (1.2-3.4); Lymphocytes % (auto) 9.1 %; Mean Corpuscular Hemoglobin 30.6 pg (25.0-34.0); Mean Corpuscular Hgb Conc 35.1 g/dL (32.0-36.0); Mean Platelet Volume 9.8 fL (9.4-12.4); Monocytes # (auto) 0.47 K/uL (0.11-0.59); Neutrophils # (auto) 13.77 K/uL (1.40-6.50); Neutrophils % (auto) 87.2 %; Platelet Count 207 K/uL (130-400); RDW Coefficient of Variation 13.3 % (11.5-14.5); RDW Standard Deviation 42.1 fL (36.4-46.3); Red Blood Count 4.68 M/uL (4.70-6.10); White Blood Count 15.78 K/ul (4.8-10.8)
[2023-05-24 07:02] LABS: BUN Creatinine Ratio 23.5 (10-20); Calcium 8.8 mg/dl (8.6-10.3); Creatinine Clr Calc Pharmacy 153.5 ml/min; Est GFR (African American) 115.3 ml/min; Est GFR (Non-African American) 99.5 ml/min
[2023-05-24 07:25] LABS: Estimated Average Glucose 134 mg/dl; Hemoglobin A1C 6.3 % (4.5-5.6)
[2023-05-24 07:56] LABS: Appearance Urine Clear (Clear); Bilirubin Urine Negative (Negative); Blood Urine Negative (Negative); Color Urine Yellow; Glucose Urine UA 2+ (Negative); Ketones Urine Trace (Negative); Leukocyte Esterase Urine Negative (Negative); Nitrite Urine Negative (Negative); Protein Urine Negative (Negative); Specific Gravity Urine 1.028 (1.000-1.030); Urobilinogen Urine Negative (Negative)
[2023-05-24] MEDS: ROSUVASTATIN CALCIUM 20 MG TAB PO SCH (08:25)
[2023-05-24] MEDS: LOSARTAN POTASSIUM 25 MG TAB PO SCH (08:25)
[2023-05-24] MEDS: PANTOprazole 40 MG TAB PO SCH (08:26)
[2023-05-24] MEDS: EZETIMIBE 10 MG TABLET PO SCH (08:26)
[2023-05-24] MEDS: CLOPIDOGREL BISULFATE 75 MG TAB PO SCH (08:26)
[2023-05-24] MEDS: SERTRALINE HCL 50 MG TABLET PO SCH (08:26)
[2023-05-24] MEDS: INSULIN ASPART PER UNIT CHARGE SC SCH ×4 (08:30→20:35)
--- NOTE | 2023-05-24 08:49 | Orthopedic Consultation ---
Date of Consultation May 24, 2023 Assessment & Plan (1) Low back pain: MRI lumbar spine demonstrates no evidence of any gross neural compression. There is very modest degenerative disc disease. He does have however significant marked facet hypertrophy most impressive at L4-L5. At this point I would initiate physical therapy and consider consultation with interventional pain management. History of Present Illness Reason for Consultation: Back pain Attending Physician: Mariah Aquino MD History of Present Illness This is a 52-year-old male who presents with acute episode of back pain last Tuesday. He states he was simply bending over and had the onset of lumbosacral back pain that was incapacitating in nature. Denies any radicular complaints. Does have chronic numbness to left hand 5. Again this has been established for several years. He denies any significant fall or trauma or event. He has never had an episode this severe in the past. He has not undergone injections or had previous surgery. Allergies Allergy/AdvReac Type Severity Reaction Status Date / Time No Known Drug Allergies Allergy Unknown . Verified 05/23/23 12:38 Home Medications Medication Instructions Recorded Confirmed Type pantoprazole 40 mg tablet,delayed 40 mg PO DAILY #30 tabs 10/04/19 05/23/23 Rx release meclizine 25 mg tablet 25 mg PO TID PRN dizziness #14 tabs 07/30/21 05/23/23 Rx ondansetron 4 mg disintegrating 4 mg PO Q6H PRN nausea and 07/30/21 05/23/23 Rx tablet vomiting #14 tabs irbesartan 75 mg tablet 75 mg PO DAILY 09/21/21 05/23/23 History pioglitazone 30 mg tablet (Actos) 30 mg PO DAILY 09/21/21 05/23/23 History clopidogrel 75 mg tablet 75 mg PO DAILY #90 tabs 10/13/22 05/23/23 Rx rosuvastatin 40 mg tablet 40 mg PO DAILY #90 tabs 02/28/23 05/23/23 Rx acetaminophen 500 mg tablet 1,000 mg PO Q6H PRN Pain 05/23/23 05/23/23 History (Tylenol Extra Strength) amitriptyline 10 mg tablet 10 mg PO HS 05/23/23 05/23/23 History ezetimibe 10 mg tablet 10 mg PO QAM 05/23/23 05/23/23 History levocetirizine 5 mg tablet 5 mg PO QPM 05/23/23 05/23/23 History lorazepam 1 mg tablet 1 mg PO TID PRN Anxiety 05/23/23 05/23/23 History magnesium oxide 400 mg (241.3 mg 400 mg PO HS 05/23/23 05/23/23 History magnesium) tablet riboflavin (vitamin B2) 400 mg 400 mg PO HS 05/23/23 05/23/23 History tablet sertraline 25 mg tablet 25 mg PO QAM 05/23/23 05/23/23 History Patient History Medical History Antiplatelet or antithrombotic long-term use Anxiety state, unspecified Chest pain Coronary artery disease Diverticulosis Dyslipidemia Elevated fasting glucose Internal hemorrhoids Palpitations Presence of stent in LAD coronary artery Surgical History H/O colonoscopy (08/2017) History of esophagogastroduodenoscopy (EGD) (07/2017) Stented coronary artery Family History Mother Crohn's disease Denies family history of Colorectal cancer Ulcerative colitis Social History Smoking Status: Current every day smoker Tobacco Type: Cigarettes Second Hand Exposure: No; Do You Dip or Chew Tobacco: No; Tobacco Cessation Education Requested by Patient: No Hx Alcohol Use: Yes Alcohol type: beer Hx Substance Use: No Preferred Language: Azeri Communication Ability: Effective Visual Impairment: No Limitations Hearing Ability: Hard of Hearing Manufacturing Manager Required: No Beliefs That Will Affect Care: None marital status: Current Living Situation: Spouse current occupational status: employed 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 Is reasonable strength testing. Sensory intact. Results & Data Vital Signs (Past 12 Hours) Vital Signs Temp Pulse Pulse Resp BP Pulse Ox O2 Del Method 05/24/23 07:46 36.5 C 88 16 115/71 94 Room Air 05/24/23 06:28 68 163/99 H 95 Room Air 05/23/23 22:28 36.4 C L 73 14 187/94 H 95 Room Air 05/23/23 22:00 102 H 12 95 05/23/23 22:10 Room Air 05/23/23 21:30 98 H 14 95 Room Air 05/23/23 21:00 78 14 (1) Low back pain Back pain laterality: midline Chronicity: acute Sciatica laterality: sciatica of left side Sciatica presence: with sciatica Qualified Code(s): M54.42 - Lumbago with sciatica, left side
[2023-05-24] MEDS ORDERED: IRBESARTAN 75 MG TAB PO SCH (09:00)
--- NOTE | 2023-05-24 11:06 | Hospitalist Progress Note ---
Date of Service May 24, 2023 Assessment & Plan (1) Low back pain: Plan: 52-year-old male with past medical significant for type 2 diabetes, hyperlipidemia, CAD, hypertension, morbid obesity, GERD, general anxiety disorder, tobacco abuse presents with severe back pain. Severe back pain MRI findings noted small broad-based disc bulge at L4-L5 but does not displace the transiting bilateral L5 nerve roots. Got steroids in the ER and IV Dilaudid. Ambulatory dysfunction secondary to severe pain. Leukocytosis today likely due to steroid on admission Ortho spine surg recs noted Pain management consulted Scheduled tylenol. Oxycodone prn pain. Flexeril prn spasms PT/OT eval Diabetes type 2 Hold home p.o. medications Continue insulin sliding scale Monitor the blood sugars HbA1c 6.3 History of CAD On Plavix and statin Currently seems stable. Morbid obesity Needs counseling. Tobacco abuse Needs counseling. Hypertension Continue ARB Generalized anxiety disorder On Zoloft, on Ativan as needed, on amitriptyline. Hyperlipidemia On Crestor and Zetia. DVT prophylaxis Lovenox. Full code. I spent a total of 45 minutes coordinating, documenting and providing care for this patient excluding time spent in performance of separately billed services Admission and Anticipated Discharge Date Admission Date: May 23, 2023 Subjective Patient seen and examined Reports severe low back pain that started on Tuesday Denied any trauma/falls Reports chronic left thigh numbness unchanged Denied perineal paresthesia, bowel/bladder incontinence Denied any other complaints Physical Exam Constitutional: + well hydrated and + obese; no acute distress Eyes: PERRL, conjunctivae normal, anicteric sclerae ENMT: external ear and nose normal, oropharynx normal Respiratory: normal respiratory effort, lungs clear to auscultation Cardiovascular: Rate/Rhythm: regular rate and regular rhythm S1 S2 Gastrointestinal (Abdomen): normal bowel sounds, soft, nontender, no hepatosplenomegaly Musculoskeletal: Lumbosacral tenderness Power is equal in both LE. No sensory deficits Neurologic: PERRL, EOMI, accommodation nl, no face palsy, no dysarthria Psychiatric: A+Ox3, euthymic affect Results & Data Results & Data Vital Signs (Past 12 Hours) Vital Signs Temp Pulse Resp BP Pulse Ox O2 Del Method 05/24/23 07:46 36.5 C 88 16 115/71 94 Room Air 05/24/23 06:28 68 163/99 H 95 Room Air Laboratory Results Abnormal lab results 05/23/23 05/24/23 05/24/23 Range/Units 22:30 06:16 06:16 WBC 15.78 H (4.8-10.8) K/ul RBC 4.68 L (4.70-6.10) M/uL Hct 40.7 L (42.0-52.0) % Neut # (Auto) 13.77 H (1.40-6.50) K/uL BUN/Creatinine Ratio 23.5 H (10-20) Glucose 149 H (70-99(Fasting)) mg/dl POC Glucose 217 H (70-99) mg/dl Hemoglobin A1c (4.5-5.6) % Urine Glucose (UA) (Negative) Urine Ketones (Negative) 05/24/23 05/24/23 05/24/23 Range/Units 06:16 07:35 08:12 WBC (4.8-10.8) K/ul RBC (4.70-6.10) M/uL Hct (42.0-52.0) % Neut # (Auto) (1.40-6.50) K/uL BUN/Creatinine Ratio (10-20) Glucose (70-99(Fasting)) mg/dl POC Glucose 139 H (70-99) mg/dl Hemoglobin A1c 6.3 H (4.5-5.6) % Urine Glucose (UA) 2+ H (Negative) Urine Ketones Trace H (Negative) 05/24/23 Range/Units 12:12 WBC (4.8-10.8) K/ul RBC (4.70-6.10) M/uL Hct (42.0-52.0) % Neut # (Auto) (1.40-6.50) K/uL BUN/Creatinine Ratio (10-20) Glucose (70-99(Fasting)) mg/dl POC Glucose 157 H (70-99) mg/dl Hemoglobin A1c (4.5-5.6) % Urine Glucose (UA) (Negative) Urine Ketones (Negative) (1) Low back pain Back pain laterality: midline Chronicity: acute Sciatica laterality: sciatica of left side Sciatica presence: with sciatica Qualified Code(s): M54.42 - Lumbago with sciatica, left side
[2023-05-24] MEDS: ENOXAPARIN INJ 40 MG/0.4 ML SYR SQ SCH ×2 (11:37→22:25)
[2023-05-24] MEDS ORDERED: oxyCODONE HCL IR 5 MG TAB (IMMEDIATE RELEASE) PO PRN (11:49)
[2023-05-24] MEDS ORDERED: CYCLOBENZAPRINE HCL 10 MG TAB PO PRN (11:52)
[2023-05-24] MEDS ORDERED: ACETAMINOPHEN 325 MG TAB PO PRN (11:53)
[2023-05-24] MEDS ORDERED: GABAPENTIN 300 MG CAP PO SCH (12:00)
[2023-05-24] MEDS ORDERED: ACETAMINOPHEN 325 MG TAB PO SCH (18:00)
[2023-05-24] MEDS ORDERED: ACETAMINOPHEN 500 MG TAB PO SCH (18:30)
[2023-05-24] MEDS: MAGNESIUM OXIDE 400 MG TAB PO SCH (21:41)
[2023-05-24] MEDS: CETIRIZINE HCL 10 MG TABLET PO SCH (21:41)
[2023-05-24] MEDS: AMITRIPTYLINE HCL 10 MG TAB PO SCH (21:41)
[2023-05-24] MEDS: ACETAMINOPHEN 500 MG TAB PO SCH (21:42)
[2023-05-25] MEDS: ACETAMINOPHEN 500 MG TAB PO SCH ×2 (05:05→13:40)
[2023-05-25 08:36] LABS: Hematocrit (blood only) 41.3 % (42.0-52.0); Hemoglobin 14.2 g/dl (14.0-18.0); Mean Corpuscular Hemoglobin 30.5 pg (25.0-34.0); Mean Corpuscular Hgb Conc 34.4 g/dL (32.0-36.0); Mean Corpuscular Volume 88.6 fL (80.0-100.0); Mean Platelet Volume 9.9 fL (9.4-12.4); Platelet Count 186 K/uL (130-400); RDW Coefficient of Variation 13.6 % (11.5-14.5); RDW Standard Deviation 43.9 fL (36.4-46.3); Red Blood Count 4.66 M/uL (4.70-6.10); White Blood Count 10.66 K/ul (4.8-10.8)
[2023-05-25] MEDS: PANTOprazole 40 MG TAB PO SCH (08:37)
[2023-05-25] MEDS: SERTRALINE HCL 50 MG TABLET PO SCH (08:37)
[2023-05-25] MEDS: CLOPIDOGREL BISULFATE 75 MG TAB PO SCH (08:37)
[2023-05-25] MEDS: LOSARTAN POTASSIUM 25 MG TAB PO SCH (08:37)
[2023-05-25] MEDS: ROSUVASTATIN CALCIUM 20 MG TAB PO SCH (08:38)
[2023-05-25] MEDS: EZETIMIBE 10 MG TABLET PO SCH (08:38)
--- NOTE | 2023-05-25 08:44 | Pain Management Consultation ---
Date of Consultation May 25, 2023 Assessment & Plan (1) Acute lumbar myofascial strain: (2) Lumbar facet joint syndrome: (3) Lumbar disc disease: Plan 1. We discussed likely etiology of his presenting complaints of likely myofascial etiology with the potential for underlying lumbar facet syndrome contributing to his pain complaint. Clear evidence of myoneural trigger point on physical exam findings. Recommend a trial of trigger point injections at today's visit and he was agreeable. 2. Will transition cyclobenzaprine to scheduled dosing 3. Will initiate use of K-pad 4. Will initiate Medrol Dosepak. Side effects versus benefits discussed. Discussed the possibility blood glucose elevations and he verbalized understanding. 5. Continue involvement with PT/OT. Would recommend outpatient follow-up with PT. 6. Pain service will sign off on patient at this time. He may undergo outpatient follow-up with persistent complaints for reevaluation. Thank you for allowing us to participate in the care of Mr. Aguillon. TRIGGER POINT INJECTION Diagnosis: Myofascial pain with spasm Side/Level injected: Left lower lumbar paravertebral x1, left quadratus lumborum x4 along superior iliac crest, right lower lumbar paravertebral x1, right quadratus lumborum x2 Surgeon: Sam FOLEY Prior to starting, the Patients diagnosis and the procedure were reviewed with the patient in detail. Possible risks and complications including infection, bleeding, damage to surrounding structures and increased pain were discussed. Alternative therapies were also reviewed. Patients questions were answered and they agreed to proceed. Informed consent was obtained. Allergies and medication list was reviewed. The patient was brought to the procedure room and placed in sitting position. Immediately prior to starting the procedure, a ``time out was conducted with the staff and the patient where the patient was identified, proposed procedure was verified, consent was reviewed and the proper site for the planned procedure was identified. Patient was not given any intravenous sedation and constant verbal contact was maintained throughout the procedure. On examination, no signs of skin breakdown or infection were noted at the injection site. The site was cleansed with ChloraPrep. After the application of either chloraprep, duraprep, and/or betadine (depending on patient's allergy status), three minutes time elapsed prior to the start of the procedure to reduce risk of fire. Palpation over the site produced patients typical pain. Using an 1.5 inch 25-gauge needle, the above muscles were injected in similar fashion after negative aspiration for blood with 1-1.5 mL of a combination of 7 mL of 0.5% ropivacaine containing 40 mg of Kenalog and 60 mg of ketorolac without complication. Needle was withdrawn and hemostasis noted. Band-Aid was applied where needed. Patient tolerated the procedure uneventfully without complications. Patient was discharged home with standard discharge instructions after 15-20 minutes. History of Present Illness Reason for Consultation: Acute low back pain Requesting Physician: Mariah Aquino MD Attending Physician: Destinee Brown MD History of Present Illness Mr. Aguillon is a 52-year-old obese white male who was admitted due to acute axial low back pain. The patient reported onset of his pain 5 days ago without known injury. He was reported bending over to go to the bathroom at work and developed acute onset of sharp low back pain with some feet paresthesias bilaterally. His pain was fairly persistent through the weekend without improvement which led to emergent evaluation and hospitalization. Patient indicates his pain has improved moderately since time of his admission. He rates his pain a 0-1/10 while lying supine. His pain can escalate to a 6-7/10 with movement. His pain is 100% axial across the lumbosacral region left greater than right-sided without a radicular or radiating component. He denies any notable weaknesses in the lower extremity, footdrop or episodes of falling. The patient was able to ambulate to the door and back yesterday and participat ing in physical therapy with slight increase in axial pain complaint. He denies bowel or bladder incontinence or saddle anesthesia. He does have [id number] diabetes mellitus diagnosed approximately 2 years ago. He denies any known peripheral neuropathy complaints. Patient is on chronic clopidogrel due to CAD. He is finding the muscle relaxers to be helpful without notable side effects. He did utilize oxycodone at home over the weekend x2 without benefit which he had leftover from a prior dental procedure. Plan of care discussed with Dr. Katelin Barbosa. Pain Assessment Full Body Front + Back: 1. Left lumbosacral region 2. Right lumbosacral region Pain scale - at its best (0-10): 1 Pain scale - at its worst (0-10): 7 Allergies Allergy/AdvReac Type Severity Reaction Status Date / Time No Known Drug Allergies Allergy Unknown . Verified 05/23/23 12:38 Home Medications Medication Instructions Recorded Confirmed Type pantoprazole 40 mg tablet,delayed 40 mg PO DAILY #30 tabs 10/04/19 05/23/23 Rx release meclizine 25 mg tablet 25 mg PO TID PRN dizziness #14 tabs 07/30/21 05/23/23 Rx ondansetron 4 mg disintegrating 4 mg PO Q6H PRN nausea and 07/30/21 05/23/23 Rx tablet vomiting #14 tabs irbesartan 75 mg tablet 75 mg PO DAILY 09/21/21 05/23/23 History pioglitazone 30 mg tablet (Actos) 30 mg PO DAILY 09/21/21 05/23/23 History clopidogrel 75 mg tablet 75 mg PO DAILY #90 tabs 10/13/22 05/23/23 Rx rosuvastatin 40 mg tablet 40 mg PO DAILY #90 tabs 02/28/23 05/23/23 Rx acetaminophen 500 mg tablet 1,000 mg PO Q6H PRN Pain 05/23/23 05/23/23 History (Tylenol Extra Strength) amitriptyline 10 mg tablet 10 mg PO HS 05/23/23 05/23/23 History ezetimibe 10 mg tablet 10 mg PO QAM 05/23/23 05/23/23 History levocetirizine 5 mg tablet 5 mg PO QPM 05/23/23 05/23/23 History lorazepam 1 mg tablet 1 mg PO TID PRN Anxiety 05/23/23 05/23/23 History magnesium oxide 400 mg (241.3 mg 400 mg PO HS 05/23/23 05/23/23 History magnesium) tablet riboflavin (vitamin B2) 400 mg 400 mg PO HS 05/23/23 05/23/23 History tablet sertraline 25 mg tablet 25 mg PO QAM 05/23/23 05/23/23 History Pain History Pain Intensity Pain scale - at its best (0-10): 1 Pain scale - at its worst (0-10): 7 Patient History Medical History (Updated 05/25/23 @ 08:50 by Sam Salinas PA-C) Antiplatelet or antithrombotic long-term use Anxiety state, unspecified Chest pain Coronary artery disease Diverticulosis Dyslipidemia Elevated fasting glucose Internal hemorrhoids Lumbar facet joint syndrome Palpitations Presence of stent in LAD coronary artery Surgical History H/O colonoscopy (08/2017) History of esophagogastroduodenoscopy (EGD) (07/2017) Stented coronary artery Family History Mother Crohn's disease Denies family history of Colorectal cancer Ulcerative colitis Social History Smoking Status: Current every day smoker Tobacco Type: Cigarettes Second Hand Exposure: No; Do You Dip or Chew Tobacco: No; Tobacco Cessation Education Requested by Patient: No Hx Alcohol Use: Yes Alcohol type: beer Hx Substance Use: No Preferred Language: Swazi Communication Ability: Effective Visual Impairment: No Limitations Hearing Ability: Hard of Hearing Team Cdl Driver Required: No Beliefs That Will Affect Care: None marital status: Current Living Situation: Spouse current occupational status: employed 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 Speech and thought process appropriate. Mood and affect appropriate. Cognition intact. Patient overweight and physically deconditioned. Head: Normocephalic and atraumatic. ENT: No evidence of nasal or oral mucosal lesions. Mucous membranes are moist. Eyes: Pupils equal round reactive to light. Neck: Supple without adenopathy and full range of motion. Abdomen: Soft and nondistended. No organomegaly. Bowel sounds active. Back/spine: Patient able to logroll onto his left side for physical exam with moderate discomfort. Nontender over the midline. Moderately tender to provocative testing of the lower lumbar facet joints at L4-5 and L5-S1. Patient exquisitely tender in the quadratus lumborum musculature bilaterally superior to the iliac crest with a few scattered myoneural trigger points at sites of maximal tenderness left greater than right-sided. Nontender throughout the gluteal musculature. Lower extremities: SLR negative bilaterally. Active straight leg raise increased left-sided lumbosacral pain bilaterally. Resisted hip flexion increased axial low back pain bilaterally left greater than right-sided. No increased pain with resisted hip extension. Hips nontender with internal/external rotation. Sensation intact without deficit. Strength testing 5/5 and equal bilaterally. Neurologic: Cranial nerves grossly intact. Ambulatory function not witnessed. Results (Pain Clinic) Diagnostic Review MRI Findings: [facility], [place] [phone] Magnetic Resonance Report Patient:JADA AGUILLON Admit Date:05/23/23 MR#:[id number] Address1:[address] [place] [address] Acct ID:[id number] Address2: Date:1970 [facility] Zip:[place] [id number] Age:52 Location:ED Sex:M Room/Bed: Att Phy: Diagnosis:LOW BACK PAIN Leny Phy:Oj aSrah MD Service Date:05/23/23 Fam Phy: Interpreting Phy:Declan Robles MDAdmit Phy: Ordering Phy:Aaron Maxwell M.D. cc: ~ LUMBAR SPINE MRI HISTORY: low back pain, down left leg TECHNIQUE: Multiplanar multisequence MRI of the lumbar spine was performed without the use of contrast. COMPARISON: Lumbar spine radiograph 05/23/2023. FINDINGS: For the purpose of the report the L5-S1 disc space will be located on axial image 27 of 30. No fracture or subluxation within the lumbar spine. The conus terminates at the L1 level. A few small vertebral body hemangiomas are noted at T12 and L2. No suspicious osseous lesions identified. Minimal disc space narrowing and disc desiccation L3-L4 and L4-L5. There is also minimal disc space narrowing at L5- S1. Paravertebral soft tissues are unremarkable. Subcutaneous edema seen within the lumbar region. Minimal levoscoliosis of the lumbar spine. L1-L2: No significant central canal or neural foraminal narrowing. L2-L3: No significant central canal or neural foraminal narrowing. L3-L4: Small broad-based posterior disc bulge without significant central canal or neural foraminal narrowing. L4-L5: Small broad-based posterior disc bulge without significant central canal or neural foraminal narrowing . This disc bulge abuts but does not displace the transiting bilateral L5 nerve roots. L5-S1: No significant central canal or neural foraminal narrowing. IMPRESSION: 1. No fractures or subluxation within the lumbar spine. 2. Mild degenerative changes as described above without significant central canal or neural foraminal narrowing. 3. The small broad-based posterior disc bulge at L4-5 abuts but does not displace the transiting bilateral L5 nerve roots. ACT 112: Negative or not required by law. Electronically signed by: Declan Robles M.D. 05/23/2023 6:54 PM Dictated:05/23/23 1718 Transcribed: 05/23/23 172 Radiology Findings: [facility], [place] [phone] XRay Report Patient:JADA AGUILLON Admit Date:05/23/23 MR#:[id number] Address1:[address] [place] [address] Acct ID:[id number] Address2: Date:1970 [facility] Zip:[place] [address] Age:52 Location:ED Sex:M Room/Bed: Att Phy: Diagnosis:LOW BACK PAIN Leny Phy:Bob Levin Service Date:05/23/23 Fam Phy: Interpreting Phy:Declan Robles MDAdmit Phy: Ordering Phy:Kelsea Jones PA cc: ~ LUMBAR SPINE 5 VIEWS HISTORY: Low back pain COMPARISON: None. FINDINGS: There is no fracture. No subluxation. Minimal levoscoliosis of the lumbar spine. The sacrum is intact. Minimal disc space narrowing and small endplate osteophytes at L3-L4 and L4-L5. Remaining disc spaces are preserved. Mild facet degenerative changes within the lower lumbar spine. IMPRESSION: No fracture or subluxation within the lumbar spine. Degenerative changes as described above. ACT 112: Negative or not required by law. Electronically signed by: Declan Robles M.D. 05/23/2023 11:48 AM Dictated:05/23/23 1147 Transcribed: 05/23/23 114
[2023-05-25] MEDS ORDERED: methylPREDNISolone 4 MG TAB, 6 DAY TAPER PO SCH (08:45)
[2023-05-25] MEDS: INSULIN ASPART PER UNIT CHARGE SC SCH ×2 (08:51→12:39)
[2023-05-25 08:59] LABS: BUN Creatinine Ratio 23.1 (10-20); Calcium 8.6 mg/dl (8.6-10.3); Creatinine Clr Calc Pharmacy 125.5 ml/min; Est GFR (African American) 94.6 ml/min; Est GFR (Non-African American) 81.6 ml/min; Potassium 3.9 mmol/L (3.5-5.1)
[2023-05-25] MEDS ORDERED: CYCLOBENZAPRINE HCL 10 MG TAB PO SCH (09:00)
[2023-05-25] MEDS ORDERED: methylPREDNISolone 4 MG TAB PO SCH ×2 (09:00→13:00)
[2023-05-25] MEDS: ENOXAPARIN INJ 40 MG/0.4 ML SYR SQ SCH (10:53)
--- NOTE | 2023-05-25 15:05 | Discharge Summary ---
Date of Service May 25, 2023 Admission HPI Per Admitting Provider This 52-year-old male with past medical history significant for type 2 diabetes, hyperlipidemia, history of CAD, hypertension, morbid obesity, GERD, sensorineural hearing loss, generalized anxiety disorder, tobacco abuse presents with severe back pain since last Tuesday. Patient states he was bending down in the bathroom when the pain started. Denies any heavy lifting or injury. Says when he is lying down pain is not present but when he moves the pain is 10/10 in severity. There is some numbness in the posterior aspect of the left thigh region. Denies any stool or urinary incontinence. Can move his lower ext remities. Today had a slight headache. Denies any dizziness. No blurred visions, no earaches, no runny nose, no sore throat, no cough, no difficulty swallowing. No fevers. Appetite is okay. No chest pain or shortness of breath. No nausea or abdominal pain. Normal bowel and bladder movements. Hemodynamics are stable. Admission Exam Per Admitting Provider General- adult Head- atraumatic Eyes- PERRL, ENT- oropharynx clear Neck- supple, no JVD, Lungs- clear to auscultation and percussion Heart- regular rhythm; no murmur, no gallop, no rub appreciated Abdomen- normal bowel sounds, soft, nontender, no masses or hepatosplenomegaly Extremities- no pretibial edema, no erythema seen. Neuro- alert, oriented x 3; PERRL, no facial palsy; no dysarthria; moves extremities. Musculoskeletal Left SLR test positive Skin- warm & dry Principal Diagnosis Low back pain Acute lumbar myofascial strain Discharge Exam GENERAL: Alert and oriented x3. NAD, on RA. Obese Class III. HEENT: No pallor, no icterus. Pupils equal, round and reactive to light. Oral mucosa moist. NECK: No JVD, no neck masses. HEART: S1 and S2 heard. Regular rate and rhythm. No murmur, no gallop. RESPIRATORY SYSTEM: Normal AP diameter. No accessory muscle use. No wheezing, no crackles. ABDOMEN: Soft, bowel sounds present, nontender, no distention. CENTRAL NERVOUS SYSTEM: No facial droop. Speech is clear. Obeys simple commands. Moves extremities. EXTREMITIES: No edema, no erythema seen. Discharge Data Allergies Allergy/AdvReac Type Severity Reaction Status Date / Time No Known Drug Allergies Allergy Unknown . Verified 05/23/23 12:38 Consultations 05/23/23 19:03 ED Decision to Admit Stat 05/24/23 08:00 Consult Orthopedic Surgery Routine 05/24/23 11:06 Consult Pain Management Routine Ordered Studies 05/23/23 13:33 MRI Lumbar Spine [MR lumbar spine wo con] Stat Hospital Course (1) Low back pain: Per prior attending with addendum: 52-year-old male with past medical significant for type 2 diabetes, hyperlipidemia, CAD, hypertension, morbid obesity, GERD, general anxiety disorder, tobacco abuse presents with severe back pain. Severe back pain MRI findings noted small broad-based disc bulge at L4-L5 but does not displace the transiting bilateral L5 nerve roots. Got steroids in the ER and IV Dilaudid. Ambulatory dysfunction secondary to severe pain. Leukocytosis today likely due to steroid on admission Ortho spine surg recs noted Pain management consulted Scheduled tylenol. Oxycodone prn pain. Flexeril prn spasms PT/OT eval Diabetes type 2 Hold home p.o. medications Continue insulin sliding scale Monitor the blood sugars HbA1c 6.3 History of CAD On Plavix and statin Currently seems stable. Morbid obesity Needs counseling. Tobacco abuse Needs counseling. Hypertension Continue ARB Generalized anxiety disorder On Zoloft, on Ativan as needed, on amitriptyline. Hyperlipidemia On Crestor and Zetia. DVT prophylaxis Lovenox. Full code. Addendum: Patient was seen and evaluated at bedside, he is status post trigger point injection for acute lumbar myofascial strain by pain management. He is started on Medrol Dosepak taper per pain management. He reports improving pain, was 0/10 at bedside exam. He is hemodynamically stable and would like to go home. He will need to follow-up with PCP within a week time, he can consider following up with pain management if his pain does not improve, he will need to coordinate with his PCP office for referral to pain management office if he decides to fol low-up with pain management as outpatient. Pantoprazole will be added for the duration of Medrol Dosepak. Patient to take steroid with food. He is being discharged home with following instruction at the point of discharge: Follow-up with your primary care physician within a week time and likely you will need labs CBC/CMP/magnesium/phosphorus. You were evaluated/received trigger point injection by pain management while in the hospital. If your pain is worsening then you might consider following up with outpatient pain management for reevaluation. You will be discharged on tapering dose of Medrol Dosepak to help with pain. Pantoprazole is added for the duration of Medrol Dosepak. Take steroid with food. You can use heating pad for low back pain as tolerated. Continue with physical therapy upon discharge. You have been provided with prescription for wheeled walker. Please make sure that you are able to get your medications today by calling your pharmacy before you leave the hospital so that your treatment continuity is not broken. Home Health Attestation I certify that this patient is under my care and that I, or a physicians client account assistant working with me, had a face to-face encounter that meets the home health [id number] encounter requirements with this patient. The encounter with the patient was in whole, or in part, for the following medical condition, which is the primary reason for home health care (list medical condition): I certify that, based on my findings, the following services are medically necessary home health services: My clinical findings support the need for the above services because: Further, I certify that my clinical findings support that this patient is homebound (i.e. absences from home require considerable and taxing effort and are for medical reasons or islam services or infrequently or of short d uration when for other reasons) because: Certification for Home Health Services: Based on the above findings, I certify that this patient is confined to the home and needs intermittent longterm care, physical therapy and/or speech therapy or continues to need occupational therapy. The patient is under my care, and I have initiated the establishment of the plan of care. This patient will be followed by a physician who will periodically review the plan of care. Total Time Total Time Spent Total Time Spent (In Minutes): 45 Discharge Plan Discharge Items Patient Disposition: Home - Self-Care Reason For Visit: SEVERE BACK PAIN Discharge Diagnosis: Low back pain Acute lumbar myofascial strain Activity: Resume your previous activity Activity Comment: Normal activity, avoid bending/lifting heavy object. Non-emergency contact: Primary Care Provider Call non-emergency contact if: you have any medication questions, your pain is worsening and your temperature is above 101 Follow-up/Referrals: Oj Sarah MD [Primary Care Provider] - (Date & Time 05/31/2023 11:20 AM Provider Oj Sarah MD Department Family Medicine [facility] ) Diet: Carb Consistent or DM2 and Heart Healthy Addtl Attending Provider Instructions: Follow-up with your primary care physician within a week time and likely you will need labs CBC/CMP/magnesium/phosphorus. You were evaluated/received trigger point injection by pain management while in the hospital. If your pain is worsening then you might consider following up with outpatient pain management for reevaluation. You will be discharged on tapering dose of Medrol Dosepak to help with pain. Pantoprazole is added for the duration of Medrol Dosepak. Take steroid with food. You can use heating pad for low back pain as tolerated. Continue with physical therapy upon discharge. You have been provided with prescription for wheeled walker. Please make sure that you are able to get your medications today by calling your pharmacy before you leave the hospital so that your treatment continuity is not broken. Pending Studies at Discharge: No Stand-Alone Forms: My [facility], Smoking Cessation Medications and DC Order Prescriptions: New cyclobenzaprine 10 mg Tablet 10 mg PO BID Qty: 60 0RF methylprednisolone [Medrol (Marc)] 4 mg tablets,dose pack 4 mg PO UD Qty: 21 0RF Rx Instructions: Per dose pack instruction. pantoprazole 40 mg tablet,delayed release (DR/EC) 40 mg PO BID 7 Days Qty: 14 0RF Continued pantoprazole 40 mg tablet,delayed release (DR/EC) 40 mg PO DAILY Qty: 30 5RF clopidogrel 75 mg tablet 75 mg PO DAILY Qty: 90 3RF rosuvastatin 40 mg tablet 40 mg PO DAILY Qty: 90 3RF irbesartan 75 mg tablet 75 mg PO DAILY pioglitazone [Actos] 30 mg tablet 30 mg PO DAILY acetaminophen [Tylenol Extra Strength] 500 mg Tablet 1,000 mg PO Q6H PRN (Reason: Pain) magnesium oxide 400 mg (241.3 mg magnesium) tablet 400 mg PO HS amitriptyline 10 mg tablet 10 mg PO HS sertraline 25 mg tablet 25 mg PO QAM lorazepam 1 mg tablet 1 mg PO TID PRN (Reason: Anxiety) ezetimibe 10 mg tablet 10 mg PO QAM levocetirizine 5 mg tablet 5 mg PO QPM riboflavin (vitamin B2) 400 mg tablet 400 mg PO HS ondansetron 4 mg tablet,disintegrating 4 mg PO Q6H PRN (Reason: nausea and vomiting) Qty: 14 0RF meclizine 25 mg tablet 25 mg PO TID PRN (Reason: dizziness) Qty: 14 0RF Discharge Orders: Discharge Order (Routine); Ordered 05/25/23 Ordered By: Destinee Brown Admission Data Admit Date/Time: 05/23/23 20:16 Attending Provider: Destinee Brown Admit Provider: Edgardo Edwards Primary Care Provider: Oj Sarah Other Providers: Edgardo Edwards ; Tico Burnham ; Jose Zhao
[2023-05-26] MEDS ORDERED: methylPREDNISolone 4 MG TAB PO SCH ×2 (07:00→21:00)
[2023-05-27] MEDS ORDERED: methylPREDNISolone 4 MG TAB PO SCH (07:00)
[2023-05-28] MEDS ORDERED: methylPREDNISolone 4 MG TAB PO SCH (07:00)
[2023-05-29] MEDS ORDERED: methylPREDNISolone 4 MG TAB PO SCH (07:00)
[2023-05-30] MEDS ORDERED: methylPREDNISolone 4 MG TAB PO SCH (07:00)
== END 2023-05-25 15:30 | disposition home or self-care (01) ==
LOC: 3W 09:56 → ED 09:56 → SUATTDRO 20:16 → 3W 22:10

== ENCOUNTER 2023-12-18 14:48 | Inpatient (IN) ==
--- NOTE | 2023-12-18 14:52 | Emergency Department Note ---
Impression & Plan Headache, History of CAD (coronary artery disease), Myalgia, Hyponatremia, Fever ED Provider Note NAME: JADA AGUILLON AGE: 53 SEX: M : 1970 ARRIVES VIA: Ambulance INFORMANT: Patient, ED PROVIDER(S): Alfredito Valentin MD CHIEF COMPLAINT: Fever, headaches, myalgias MEDICAL DECISION MAKING: Patient presents with the above symptoms. IV was established and blood work was obtained. The patient does have mild leukocytosis at 13 not much change from earlier today. Kidney function unremarkable. Sodium is low at 133. The patient did receive migraine type cocktail. The patient only had mild improvement in symptoms. The patient was ordered additional medications. CT of the head is negative. Upon subsequent reassessment the patient still had persistent symptoms and thus given this with associated fever thought it reasonable to keep the patient in hospital. I did consider the possibility of meningitis however, the patient has no nuchal rigidity or photophobia full range of motion of the neck is not encephalopathic. Patient was admitted by Dr. Fitzgerald. Discussion w/ other healthcare providers: Dr. Fitzgerald, inpatient medicine service Prior /Outside records reviewed: None Differential diagnosis: Differential head Diagnostics, as interpreted by me: ECG: Sinus tachycardia, rate 113, normal intervals, normal axis no ST elevations, T wave version in lead III. No significant change from comparison from earlier today. Cardiac monitoring: An order was placed for continuous cardiac monitoring. The monitor shows a rate of 102 with tachycardic and regular rhythm. Patient was placed on pulse oximetry Medical decision rules: None Imaging studies: I informally interpreted the patient's CT head which does not show obvious ICH with formal report to follow. HPI: Patient presents due to concern for headache. The patient had been seen earlier this morning and was discharged but states that the headache is not much improved. The patient has had fever to 102 at home with associated body aches and chills. Patient denies any chest pains or shortness of breath. Patient denies any known sick contacts or any recent travel. Patient not much of an appetite in the last day or so. Patient is also felt sweaty. PAST MEDICAL HISTORY: See Below PAST SURGICAL HISTORY: See Below SOCIAL HISTORY: See Below HOME MEDICATIONS: See Below ALLERGIES: See Below VITALS: See Below PHYSICAL EXAMINATION: GENERAL: Ill but nontoxic in appearance. EYE EXAM: Normal conjunctiva. PERRL, no anisocoria and EOM's grossly intact w/o pain. OROPHARYNX: Moist mucus membranes, grossly normal dentition. NECK: Trachea midline, no stridor. Supple, no nuchal rigidity, no adenopathy, non-tender. No signs of meningismus. FROM of the neck with good chin to chest and neck extension. LUNGS: Clear to auscultation. Normal chest wall mechanics. HEART: Tachycardic and regular, no MRG. ABDOMEN: Abdomen soft, non-tender, no masses, no rebound or guarding. BACK: No CVA TTP. SKIN: No rashes and no bruising. UPPER EXTREMITIES: Upper extremities are grossly normal. LOWER EXTREMITIES: Grossly normal, no edema. NEURO EXAM: A&O x3, cranial nerves II-XII grossly intact, normal speech, moves all 4 extremities. Good [id number], no drift and no sensory deficits. Past Med/Surg History Medical History Lumbar facet joint syndrome Anxiety state, unspecified Diverticulosis Elevated fasting glucose Internal hemorrhoids Antiplatelet or antithrombotic long-term use Coronary artery disease Dyslipidemia Presence of stent in LAD coronary artery Chest pain Palpitations Surgical History H/O colonoscopy (08/2017) History of esophagogastroduodenoscopy (EGD) (07/2017) Stented coronary artery Family History Mother Crohn's disease Denies family history of Colorectal cancer Ulcerative colitis Social History Smoking Status: Current every day smoker Tobacco Type: Cigarettes Cigarettes Per Day: pack; Second Hand Exposure: No; Do You Dip or Chew Tobacco: No; Hx Alcohol Use: Yes Alcohol type: beer Hx Substance Use: No Preferred Language: Turkmen Communication Ability: Effective Visual Impairment: No Limitations Hearing Ability: Hard of Hearing Manager Highway Required: No Beliefs That Will Affect Care: None marital status: Current Living Situation: Spouse current occupational status: employed 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 Other Information That Helps Us Care for You: No Feels Safe at Home: Yes Safety Concerns: Feels Safe At This Time Childhood Exposure to Second-Hand Smoke: Yes caffeine: Yes during the past year weight has: remained stable Dental Care, Regularly: No Physical Activity Frequency: Does not Exercise Seatbelt Use: always Sunscreen Use: Yes Assistive Devices: Glasses Allergies Allergies Allergy/AdvReac Type Severity Reaction Status Date / Time No Known Allergies Allergy Verified 12/18/23 16:42 Home Meds Home Medications Medication Instructions Recorded Confirmed irbesartan 75 mg tablet 75 mg PO DAILY 09/21/21 12/18/23 pioglitazone 30 mg tablet (Actos) 30 mg PO DAILY 09/21/21 12/18/23 acetaminophen 500 mg tablet 1,000 mg PO Q6H PRN Pain 05/23/23 12/18/23 (Tylenol Extra Strength) amitriptyline 10 mg tablet 10 mg PO HS 05/23/23 12/18/23 ezetimibe 10 mg tablet 10 mg PO QAM 05/23/23 12/18/23 levocetirizine 5 mg tablet 5 mg PO QPM 05/23/23 12/18/23 lorazepam 1 mg tablet 1 mg PO TID PRN Anxiety 05/23/23 12/18/23 magnesium oxide 400 mg (241.3 mg 400 mg PO HS 05/23/23 12/18/23 magnesium) tablet sertraline 25 mg tablet 25 mg PO QAM 05/23/23 12/18/23 Previous Rx's Medication Instructions Recorded pantoprazole 40 mg tablet,delayed 40 mg PO DAILY #30 tabs 10/04/19 release meclizine 25 mg tablet 25 mg PO TID PRN dizziness #14 tabs 07/30/21 rosuvastatin 40 mg tablet 40 mg PO DAILY #90 tabs 02/28/23 clopidogrel 75 mg tablet 75 mg PO DAILY #90 tabs 12/19/23 Results & Data (ED) Home Medications Current Medication List: was personally reviewed by me Laboratory Data Attestation: I reviewed the patient's lab results. 12/21/23 05:45 12/21/23 05:45 Lab Results 12/18/23 Range/Units 15:00 WBC 13.17 H (4.8-10.8) K/ul RBC 4.64 L (4.70-6.10) M/uL Hgb 13.9 L (14.0-18.0) g/dl Hct 40.8 L (42.0-52.0) % MCV 87.9 (80.0-100.0) fL MCH 30.0 (25.0-34.0) pg MCHC 34.1 (32.0-36.0) g/dL RDW Std Deviation 46.6 H (36.4-46.3) fL RDW Coeff of Miguel 14.5 (11.5-14.5) % Plt Count 160 (130-400) K/uL MPV 9.6 (9.4-12.4) fL Immature Gran % (Auto) 0.5 % Neut % (Auto) 85.2 % Lymph % (Auto) 7.1 % [place] % (Auto) 6.5 % Eos % (Auto) 0.5 % Baso % (Auto) 0.2 % Neut # (Auto) 11.22 H (1.40-6.50) K/uL Lymph # (Auto) 0.94 L (1.20-3.40) K/uL [place] # (Auto) 0.85 H (0.11-0.59) K/uL Eos # (Auto) 0.06 (0.00-0.50) K/uL Baso # (Auto) 0.03 (0.00-0.20) K/uL Immature Gran # (Auto) 0.07 (0.01-0.20) K/uL Sodium 133 L (136-145) mmol/L Potassium 3.5 (3.5-5.1) mmol/L Chloride 103 (98-107) mmol/L Carbon Dioxide 18 L (21-32) mmol/L Anion Gap 12 H (3-11) BUN 16 (6-23) mg/dl Creatinine 0.97 (0.6-1.4) mg/dl Est Cr Clr Drug Dosing 132.0 ml/min Est GFR ( Amer) 102.2 ml/min Est GFR (Non-Af Amer) 88.1 ml/min BUN/Creatinine Ratio 16.5 (10-20) Glucose 144 H (70-99(Fasting)) mg/dl Calcium 8.7 (8.6-10.3) mg/dl Procalcitonin 0.49 (0-0.5) ng/ml Adenovirus (PCR) Not Detected (NotDetected) B. pertussis DNA (PCR) Not Detected (NotDetected) B.parapertussis DNA PCR Not Detected (NotDetected) C. pneumoniae DNA (PCR) Not Detected (NotDetected) Coronavirus OC43 (PCR) Not Detected (NotDetected) Coronavirus HKU1 (PCR) Not Detected (NotDetected) Coronavirus 229E (PCR) Not Detected (NotDetected) SARS-CoV-2 (PCR) Not Detected (NotDetected) Coronavirus NL63 (PCR) Not Detected (NotDetected) Human Metapneumovir PCR Not Detected (NotDetected) Influenza Type A (PCR) Not Detected (NotDetected) Influenza Type B (PCR) Not Detected (NotDetected) M. pneumoniae (PCR) Not Detected (NotDetected) Parainfluenza 1 (PCR) Not Detected (NotDetected) Parainfluenza 2 (PCR) Not Detected (NotDetected) Parainfluenza 3 (PCR) Not Detected (NotDetected) Parainfluenza 4 (PCR) Not Detected (NotDetected) RSV (PCR) Not Detected (NotDetected) Entero/Rhino (PCR) Not Detected (NotDetected) Administered Medications Acetaminophen (Acetaminophen 325 Mg Tab) 650 mg PO Q4H PRN PRN Reason: Pain or Fever Stop: 01/17/24 19:36 Last Admin: 12/21/23 04:26 Dose: 650 mg Documented By: Admin: 12/20/23 19:21 Dose: 650 mg Documented By: Admin: 12/20/23 11:44 Dose: 650 mg Documented By: Admin: 12/20/23 07:44 Dose: 650 mg Documented By: Admin: 12/20/23 00:49 Dose: 650 mg Documented By: Admin: 12/18/23 21:19 Dose: 650 mg Documented By: TERELL Amitriptyline HCl (Amitriptyline Hcl 10 Mg Tab) 10 mg PO HS [facility] Stop: 01/17/24 20:59 Last Admin: 12/20/23 20:37 Dose: 10 mg Documented By: Admin: 12/19/23 20:04 Dose: 10 mg Documented By: Admin: 12/18/23 21:18 Dose: 10 mg Documented By: TERELL Aspirin (Aspirin 81 Mg Chew) 81 mg PO DAILY [facility] Stop: 01/18/24 10:59 Last Admin: 12/21/23 08:42 Dose: 81 mg Documented By: Admin: 12/20/23 07:45 Dose: 81 mg Documented By: Admin: 12/19/23 11:43 Dose: 81 mg Documented By: LORRIE Cetirizine HCl (Cetirizine Hcl 10 Mg Tablet) 10 mg PO QPM [facility] Stop: 01/17/24 20:59 Last Admin: 12/20/23 20:37 Dose: 10 mg Documented By: Admin: 12/19/23 20:04 Dose: 10 mg Documented By: Admin: 12/18/23 21:19 Dose: 10 mg Documented By: TERELL Doxycycline Hyclate (Doxycycline Hyclate 100 Mg Cap) 100 mg PO BID [facility] Stop: 12/25/23 20:59 Last Admin: 12/21/23 08:41 Dose: 100 mg Documented By: Admin: 12/20/23 20:36 Dose: 100 mg Documented By: Admin: 12/20/23 07:45 Dose: 100 mg Documented By: Admin: 12/19/23 20:05 Dose: 100 mg Documented By: Admin: 12/19/23 08:12 Dose: 100 mg Documented By: Admin: 12/18/23 21:19 Dose: 100 mg Documented By: TERELL Ezetimibe (Ezetimibe 10 Mg Tab) 10 mg PO QAM [facility] Stop: 01/18/24 08:59 Last Admin: 12/21/23 08:42 Dose: 10 mg Documented By: Admin: 12/20/23 07:45 Dose: 10 mg Documented By: Admin: 12/19/23 08:13 Dose: 10 mg Documented By: LORRIE Cefepime HCl 2,000 mg/ Syringe 20 mls @ 5 mls/min IV Q8H [facility]; Protocol Stop: 12/25/23 19:44 Last Admin: 12/21/23 04:23 Dose: 5 mls/min Documented By: Admin: 12/20/23 20:35 Dose: 5 mls/min Documented By: Admin: 12/20/23 11:44 Dose: 5 mls/min Documented By: Admin: 12/20/23 03:22 Dose: 5 mls/min Documented By: Admin: 12/19/23 20:01 Dose: 5 mls/min Documented By: Admin: 12/19/23 11:43 Dose: 5 mls/min Documented By: Admin: 12/19/23 03:45 Dose: 5 mls/min Documented By: Admin: 12/18/23 20:05 Dose: 5 mls/min Documented By: TERELL Promethazine HCl 6.25 mg/ (Sodium Chloride) 50.25 mls @ 201 mls/hr IV Q6H PRN PRN Reason: Nausea And Vomiting Stop: 01/17/24 19:36 Last Infusion: 12/19/23 19:08 Dose: Infused Documented By: Admin: 12/19/23 18:53 Dose: 201 mls/hr Documented By: LORRIE Acetaminophen ([facility]) 1,000 mg in 100 mls @ 400 mls/hr IV Q8H PRN PRN Reason: Pain or Fever Stop: 12/22/23 09:00 Last Infusion: 12/19/23 18:00 Dose: Infused Documented By: Admin: 12/19/23 17:44 Dose: 400 mls/hr Documented By: Infusion: 12/19/23 09:50 Dose: Infused Documented By: Admin: 12/19/23 09:27 Dose: 400 mls/hr Documented By: LORRIE Insulin Aspart (Insulin Aspart Per Unit Charge) 0 units SC ACHS [facility] Stop: 01/17/24 20:59 Last Admin: 12/21/23 08:36 Dose: 1 units Documented By: MEHRAN Co-signed By: ROSIO Admin: 12/20/23 20:37 Dose: Not Given Documented By: Admin: 12/20/23 16:39 Dose: Not Given Documented By: Admin: 12/20/23 11:40 Dose: Not Given Documented By: Admin: 12/20/23 07:50 Dose: Not Given Documented By: Admin: 12/19/23 21:47 Dose: Not Given Documented By: Admin: 12/19/23 17:26 Dose: Not Given Documented By: Admin: 12/19/23 12:04 Dose: Not Given Documented By: Admin: 12/19/23 08:22 Dose: Not Given Documented By: Admin: 12/18/23 21:11 Dose: 2 units Documented By: TERELL Co-signed By: JOON Insulin Glargine (Lantus Per Unit Charge) 5 units SQ BID [facility] Stop: 01/17/24 20:59 Last Admin: 12/21/23 08:36 Dose: 5 units Documented By: MEHRAN Co-signed By: ROSIO Admin: 12/20/23 20:46 Dose: 5 units Documented By: KEITH Co-signed By: MAXIMILIANO Admin: 12/20/23 09:00 Dose: 5 units Documented By: LORRIE Co-signed By: JONATHAN Admin: 12/19/23 21:52 Dose: 5 units Documented By: KEITH Co-signed By: RAJANI Admin: 12/19/23 08:23 Dose: 5 units Documented By: LORRIE Co-signed By: JONATHAN Admin: 12/18/23 21:11 Dose: 5 units Documented By: TERELL Co-signed By: JOON Magnesium Oxide (Magnesium Oxide 400 Mg Tab) 400 mg PO [facility] Stop: 01/17/24 20:59 Last Admin: 12/20/23 20:37 Dose: 400 mg Documented By: Admin: 12/19/23 20:04 Dose: 400 mg Documented By: Admin: 12/18/23 21:19 Dose: 400 mg Documented By: TERELL Menthol (Cough Drop (Sugar Free) Jakob 24 Jakob/1 Box) 1 jakob BUCCAL PRN PRN PRN Reason: Cough Stop: 01/19/24 23:31 Last Admin: 12/20/23 23:50 Dose: 1 jakob Documented By: KEITH Oxycodone HCl (Oxycodone Hcl Ir 5 Mg Tab (Immediate Release)) 5 mg PO Q6H PRN PRN Reason: Moderate Pain (Scale 4, 5, 6) Stop: 01/02/24 10:57 Last Admin: 12/19/23 17:20 Dose: 5 mg Documented By: Admin: 12/19/23 11:05 Dose: 5 mg Documented By: LORRIE Pantoprazole Sodium (Pantoprazole 40 Mg Tab) 40 mg PO DAILY [facility] Stop: 01/18/24 08:59 Last Admin: 12/21/23 08:43 Dose: 40 mg Documented By: Admin: 12/20/23 07:45 Dose: 40 mg Documented By: Admin: 12/19/23 08:13 Dose: 40 mg Documented By: LORRIE Polyethylene Glycol (Polyethylene (Miralax) 17 Gm Pack) 17 gm PO DAILY [facility] Stop: 01/19/24 15:59 Last Admin: 12/21/23 08:45 Dose: Not Given Documented By: TariO Admin: 12/20/23 16:56 Dose: 17 gm Documented By: LORRIE Rosuvastatin Calcium (Rosuvastatin Calcium 20 Mg Tab) 40 mg PO DAILY [facility] Stop: 01/18/24 08:59 Last Admin: 12/21/23 08:44 Dose: 40 mg Documented By: Admin: 12/20/23 07:45 Dose: 40 mg Documented By: Admin: 12/19/23 08:12 Dose: 40 mg Documented By: LORRIE Sertraline HCl (Sertraline Hcl 50 Mg Tablet) 25 mg PO QAM [facility] Stop: 01/18/24 08:59 Last Admin: 12/21/23 08:43 Dose: 25 mg Documented By: Admin: 12/20/23 07:45 Dose: 25 mg Documented By: Admin: 12/19/23 08:14 Dose: 25 mg Documented By: LORRIE Discontinued Medications Acetaminophen (Acetaminophen 1000 Mg/100 Ml Iv) 1,000 mg IV NOW STA Stop: 12/18/23 15:08 Last Admin: 12/18/23 15:18 Dose: 1,000 mg Documented By: MONSERRAT Al Hydrox/Mg Hydrox/Simethicone (Aluminum/Magnesium Susp 30 Ml Udc) 30 ml PO NOW STA Stop: 12/19/23 10:13 Last Admin: 12/19/23 10:31 Dose: 30 ml Documented By: LORRIE Diphenhydramine HCl (Diphenhydramine 50 Mg/Ml Vial) 25 mg IV NOW STA Stop: 12/18/23 16:11 Last Admin: 12/18/23 16:35 Dose: 25 mg Documented By: MONSERRAT Gadobutrol (Gadobutrol 65ml Vial) 14 ml IV ONCE ONE Stop: 12/18/23 23:26 Last Admin: 12/18/23 23:26 Dose: 14 ml Documented By: LASHAY Sodium Chloride (Nss) 1,000 mls @ 999 mls/hr IV .Q1H1M [facility] Stop: 12/18/23 16:15 Last Infusion: 12/18/23 17:08 Dose: Infused Documented By: Admin: 12/18/23 15:19 Dose: 999 mls/hr Documented By: ACC Magnesium Sulfate/Dextrose (Magnesium Sulfate / D5w) 1 gm in 100 mls @ 300 mls/hr IV NOW ONE Stop: 12/18/23 15:26 Last Infusion: 12/18/23 15:38 Dose: Infused Documented By: Admin: 12/18/23 15:17 Dose: 300 mls/hr Documented By: ACC Lactated Ringer's (Lr) 1,000 mls @ 100 mls/hr IV .Q10H [facility] Stop: 01/17/24 19:36 Last Infusion: 12/19/23 13:48 Dose: Infused Documented By: Admin: 12/19/23 05:39 Dose: 100 mls/hr Documented By: Infusion: 12/19/23 05:39 Dose: Infused Documented By: Infusion: 12/18/23 23:49 Dose: 100 mls/hr Documented By: Infusion: 12/18/23 23:03 Dose: 0 mls/hr Documented By: Admin: 12/18/23 20:05 Dose: 100 mls/hr Documented By: TERELL Vancomycin HCl 2,750 mg/ (Sodium Chloride) 555 mls @ 200 mls/hr IV NOW ONE Stop: 12/18/23 22:31 Last Infusion: 12/19/23 00:32 Dose: Infused Documented By: Admin: 12/18/23 21:13 Dose: 180 mls/hr Documented By: TERELL Vancomycin HCl 1,500 mg/ (Sodium Chloride) 530 mls @ 200 mls/hr IV Q12H [facility] Stop: 12/21/23 07:59 Last Infusion: 12/19/23 22:45 Dose: Infused Documented By: Admin: 12/19/23 20:06 Dose: 200 mls/hr Documented By: Infusion: 12/19/23 10:56 Dose: Infused Documented By: Admin: 12/19/23 08:13 Dose: 200 mls/hr Documented By: LORRIE Acetaminophen (Ofirmev) 1,000 mg in 100 mls @ 400 mls/hr IV NOW STA Stop: 12/19/23 03:08 Last Infusion: 12/19/23 03:28 Dose: Infused Documented By: Admin: 12/19/23 03:11 Dose: 400 mls/hr Documented By: TERELL Ioversol (Optiray 320 125ml) 119 ml IV ONCE ONE Stop: 12/18/23 18:13 Last Admin: 12/18/23 18:12 Dose: 119 ml Documented By: ABIDAK Ketorolac Tromethamine (Ketorolac Tromethamine 15 Mg/Ml Vial) 10 mg IV NOW STA Stop: 12/18/23 15:08 Last Admin: 12/18/23 15:18 Dose: 10 mg Documented By: MONSERRAT Ketorolac Tromethamine (Ketorolac Tromethamine 15 Mg/Ml Vial) 15 mg IV NOW ONE Stop: 12/18/23 23:04 Last Admin: 12/18/23 23:39 Dose: 15 mg Documented By: TERELL Magnesium Hydroxide (Magnesium Hydroxide Susp 30 Ml Udc) 30 ml PO NOW ONE Stop: 12/20/23 15:56 Last Admin: 12/20/23 16:57 Dose: Not Given Documented By: LORRIE Ondansetron HCl (Ondansetron Inj 2 Mg/Ml 2 Ml Vial) 4 mg IV NOW STA Stop: 12/18/23 15:08 Last Admin: 12/18/23 15:18 Dose: 4 mg Documented By: MONSERRAT Potassium Chloride (Potassium Chloride Crtab 20 Meq Tabcr) 40 meq PO NOW STA Stop: 12/21/23 08:16 Last Admin: 12/21/23 08:44 Dose: 40 meq Documented By: MEHRAN Prochlorperazine (Prochlorperazine 5 Mg/Ml 2 Ml Vial) 10 mg IV NOW STA Stop: 12/18/23 16:11 Last Admin: 12/18/23 16:36 Dose: 10 mg Documented By: ACC Discharge Plan Visit Data Chief Complaint: Headache Stated Complaint: HEADACHE ED Provider: Alfredito Valentin Discharge Problem: Headache, History of CAD (coronary artery disease), Myalgia, Hyponatremia, Fever Patient Disposition: Admitted As Inpatient Discharge Instructions Interventions: ED Discharge Assessment Last Done: 12/18/23 19:46 Discharge Problem: Headache Qualifiers: Headache type: unspecified Headache chronicity pattern: acute headache I ntractability: not intractable Qualified Code(s): R51.9 - Headache, unspecified Fever Qualifiers: Fever type: unspecified Qualified Code(s): R50.9 - Fever, unspecified
[2023-12-18] MEDS: MAGNESIUM SULFATE / D5W 1 GM/100 ML BAG IV ONE (15:17)
[2023-12-18] MEDS: KETOROLAC TROMETHAMINE 15 MG/ML VIAL IV STA (15:18)
[2023-12-18] MEDS: ONDANSETRON INJ 2 MG/ML 2 ML VIAL IV STA (15:18)
[2023-12-18] MEDS: ACETAMINOPHEN 1000 MG/100 ML IV IV STA (15:18)
[2023-12-18] MEDS: SODIUM CHLORIDE 0.9% 1,000 ML IV SCH (15:19)
[2023-12-18 15:26] LABS: Basophils # (auto) 0.03 K/uL (0.00-0.20); Basophils % (auto) 0.2 %; Eosinophils # (auto) 0.06 K/uL (0.00-0.50); Eosinophils % (auto) 0.5 %; Hematocrit (blood only) 40.8 % (42.0-52.0); Hemoglobin 13.9 g/dl (14.0-18.0); Immature Granulocytes # (auto) 0.07 K/uL (0.01-0.20); Immature Granulocytes % (auto) 0.5 %; Lymphocytes # (auto) 0.94 K/uL (1.20-3.40); Lymphocytes % (auto) 7.1 %; Mean Corpuscular Hgb Conc 34.1 g/dL (32.0-36.0); Mean Corpuscular Volume 87.9 fL (80.0-100.0); Mean Platelet Volume 9.6 fL (9.4-12.4); Monocytes # (auto) 0.85 K/uL (0.11-0.59); Monocytes % (auto) 6.5 %; Neutrophils # (auto) 11.22 K/uL (1.40-6.50); Neutrophils % (auto) 85.2 %; Platelet Count 160 K/uL (130-400); RDW Coefficient of Variation 14.5 % (11.5-14.5); RDW Standard Deviation 46.6 fL (36.4-46.3); Red Blood Count 4.64 M/uL (4.70-6.10); White Blood Count 13.17 K/ul (4.8-10.8)
[2023-12-18 15:38] LABS: BUN Creatinine Ratio 16.5 (10-20); Calcium 8.7 mg/dl (8.6-10.3); Est GFR (African American) 102.2 ml/min; Est GFR (Non-African American) 88.1 ml/min; Potassium 3.5 mmol/L (3.5-5.1)
--- NOTE | 2023-12-18 16:00 | CT Scan Report ---
CT head/brain wo con CLINICAL HISTORY: 53 years-old Male with Headache. Acute headache TECHNIQUE: Multiple axial CT images of the head were obtained without contrast. A dose lowering tech nique was utilized adhering to the principles of ALARA. CT DOSE: 625.8 mGy.cm COMPARISON: 07/30/2021 FINDINGS: No acute intracranial hemorrhage, midline shift, intracranial mass, hydrocephalus, territorial ischem ia or abnormal extra-axial collection. The calvarium is intact. The paranasal sinuses, mastoid air cells, and middle ear cavities are clear . IMPRESSION: No acute intracranial abnormality. ACT 112: Negative or not required by law. The above report was generated using voice recognition software. It may contain grammatical, syntax o r spelling errors. Electronically signed by: Harpal Reyes M.D. 12/18/2023 3:57 PM
[2023-12-18 16:14] LABS: Adenovirus PCR Not Detected (NotDetected); Bordetella parapertussis PCR Not Detected (NotDetected); Bordetella pertussis PCR Not Detected (NotDetected); Chlamydia pneumoniae PCR Not Detected (NotDetected); Coronavirus 229E PCR Not Detected (NotDetected); Coronavirus CoV-2 (COVID19)PCR Not Detected (NotDetected); Coronavirus HKU1 PCR Not Detected (NotDetected); Coronavirus NL63 PCR Not Detected (NotDetected); Coronavirus OC43PCR Not Detected (NotDetected); Human Metapneumovirus PCR Not Detected (NotDetected); Influenza A PCR Not Detected (NotDetected); Influenza B PCR Not Detected (NotDetected); Mycoplasma pneumoniae PCR Not Detected (NotDetected); Parainfluenza Virus 1 PCR Not Detected (NotDetected); Parainfluenza Virus 2 PCR Not Detected (NotDetected); Parainfluenza Virus 3 PCR Not Detected (NotDetected); Parainfluenza Virus 4 PCR Not Detected (NotDetected); Respiratory Syncytial VirusPCR Not Detected (NotDetected); Rhinovirus/Enterovirus PCR Not Detected (NotDetected)
[2023-12-18] MEDS: diphenhydrAMINE 50 MG/ML VIAL IV STA (16:35)
[2023-12-18] MEDS: PROCHLORPERAZINE 5 MG/ML 2 ML VIAL IV STA (16:36)
--- NOTE | 2023-12-18 18:10 | History & Physical Report ---
Date of Service December 18, 2023 Assessment & Plan (1) Fever: Plan: Patient presents with headache, fever, nausea vomiting, diffuse myalgia for the past 4 days. On presentation to the ED, he was normotensive, afebrile and saturating well on room air. CBC is remarkable for leukocytosis. BMP reveals mild hyponatremia with sodium of 133, bicarb of 18. Respiratory viral panel is negative Chest x-ray personally reviewed; no infiltrates present CT head without contrast did not show any acute finding Urinalysis does not show any infection No focalized signs of infection. Will obtain blood culture, Lyme antibody, CT abdomen pelvis (given nausea/vomit), MRI brain(given severe headaches). IV fluids with LR at 100 cc/h Will start on empiric antibiotics with cefepime vancomycin and doxycycline. Will need to consider lumbar puncture if initial workup is negative for infection if patient continues to have severe headaches and fever. Chronic conditions; Coronary artery disease status post stent in LAD in 2016patient presently on Plavix, rosuvastatin and ezetimibe Mood disordercontinue sertraline, amitriptyline HypertensionIrbesartan currently on hold Type 2 diabetes mellitushold home pioglitazone, started on sliding scale insulin here Plan of care discussed with the patient. He is agreeable with the plan. Time spent evaluating patient, direct bedside care, chart review, placing orders, interpretation of diagnostic studies, discussion with consultants, patient, and family members, as well as other required patient management activities is 75 minutes Please note the above document was generated using voice recognition software. It may contain grammatical, syntax or spelling errors. Any formal questions or concerns about the content, text or information contained within the body of this dictation should be directly addressed to the provider for clarification History of Present Illness Chief Complaint: Fever for 2 days Headache [id number] Primary Care Provider: Tatyana Holcomb MD History obtained from interview with the patient and chart review. Past medical history of type 2 diabetes mellitus, hyperlipidemia, coronary artery disease status post stent, hypertension, morbid obesity, GERD, generalized anxiety disorder Last confinement in May 2023 with lower back pain. He had presented in the ED earlier today; was discharged home after initial workup was negative. He returned back to the ED due to ongoing fevers. Patient presents with headache for 4 days; on bilateral frontal area. The headache is associated with fever and chills for past 2 days. The Tmax measured at home was 102 F. Patient also had multiple episode of vomiting containing food particles; Patient also reports diffuse myalgia, diaphoresis. He denies blurring of vision, neck pain, weakness/numbness of any body part, chest pain, shortness of breath, cough, abdominal pain, urinary symptoms, joint pain or rash. On presentation to the ED, he was normotensive, afebrile and saturating well on room air. CBC is remarkable for leukocytosis. BMP reveals mild hyponatremia with sodium of 133, bicarb of 18. Respiratory viral panel is negative Chest x-ray personally reviewed; no infiltrates present CT head without contrast did not show any acute finding Allergies Allergy/AdvReac Type Severity Reaction Status Date / Time No Known Allergies Allergy Verified 12/18/23 16:42 Home Medications Medication Instructions Recorded Confirmed Type pantoprazole 40 mg tablet,delayed 40 mg PO DAILY #30 tabs 10/04/19 12/18/23 Rx release meclizine 25 mg tablet 25 mg PO TID PRN dizziness #14 tabs 07/30/21 12/18/23 Rx irbesartan 75 mg tablet 75 mg PO DAILY 09/21/21 12/18/23 History pioglitazone 30 mg tablet (Actos) 30 mg PO DAILY 09/21/21 12/18/23 History clopidogrel 75 mg tablet 75 mg PO DAILY #90 tabs 10/13/22 12/18/23 Rx rosuvastatin 40 mg tablet 40 mg PO DAILY #90 tabs 02/28/23 12/18/23 Rx acetaminophen 500 mg tablet 1,000 mg PO Q6H PRN Pain 05/23/23 12/18/23 History (Tylenol Extra Strength) amitriptyline 10 mg tablet 10 mg PO HS 05/23/23 12/18/23 History ezetimibe 10 mg tablet 10 mg PO QAM 05/23/23 12/18/23 History levocetirizine 5 mg tablet 5 mg PO QPM 05/23/23 12/18/23 History lorazepam 1 mg tablet 1 mg PO TID PRN Anxiety 05/23/23 12/18/23 History magnesium oxide 400 mg (241.3 mg 400 mg PO HS 05/23/23 12/18/23 History magnesium) tablet sertraline 25 mg tablet 25 mg PO QAM 05/23/23 12/18/23 History Past Med/Surg History Medical History Lumbar facet joint syndrome Anxiety state, unspecified Diverticulosis Elevated fasting glucose Internal hemorrhoids Antiplatelet or antithrombotic long-term use Coronary artery disease Dyslipidemia Presence of stent in LAD coronary artery Chest pain Palpitations Surgical History H/O colonoscopy (08/2017) History of esophagogastroduodenoscopy (EGD) (07/2017) Stented coronary artery Family History Mother Crohn's disease Denies family history of Colorectal cancer Ulcerative colitis Social History Smoking Status: Unknown if ever smoked Tobacco Type: Cigarettes Second Hand Exposure: No; Do You Dip or Chew Tobacco: No; Hx Alcohol Use: Yes Alcohol type: beer Hx Substance Use: No Preferred Language: [place] Communication Ability: Effective Visual Impairment: No Limitations Hearing Ability: Hard of Hearing Workforce Management Analyst Required: No Beliefs That Will Affect Care: None marital status: Current Living Situation: Spouse current occupational status: employed 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 Feels Safe at Home: Yes Childhood Exposure to Second-Hand Smoke: Yes caffeine: Yes during the past year weight has: remained stable Dental Care, Regularly: No Physical Activity Frequency: Does not Exercise Seatbelt Use: always Sunscreen Use: Yes Assistive Devices: None Review of Systems Review of Systems: All systems reviewed & are unremarkable except as noted in Subjective Physical Exam Physical Exam: Constitutional: Alert oriented x 3, appears tired Respiratory: Bilateral vesicular breath sound Cardiovascular: RRR, no murmur, no edema Vessels: no JVD or carotid bruit Chest: normal inspection of chest Abdomen: Soft, nontender Musculoskeletal: no cyanosis or clubbing, extremities motor strength 5/5 Skin: no rashes, warm and dry normal turgor Neurologic: PERRL, EOMI, accommodation nl, no face palsy, no dysarthria CN's II- XI intact bilaterally and moves all extremities. No neck rigidity Psychiatric: A+Ox3, euthymic affect Results & Data Results & Data Vital Signs (Past 12 Hours) Vital Signs Temp Pulse Resp BP Pulse Ox O2 Del Method 12/18/23 16:40 79 16 94 12/18/23 16:30 92 H 24 96 12/18/23 16:20 88 16 94 12/18/23 16:10 87 14 94 12/18/23 16:04 85 15 94 12/18/23 16:04 127/82 12/18/23 15:40 95 H 16 94 12/18/23 15:30 91 H 16 96 12/18/23 15:21 94 H 12/18/23 15:20 94 H 18 95 12/18/23 15:10 95 H 20 94 12/18/23 15:00 99 H 21 95 12/18/23 14:54 36.9 C 108 H 20 147/96 H 94 Room Air 12/18/23 14:51 101 H 28 H 96 12/18/23 14:51 147/96 H
[2023-12-18] MEDS: OPTIRAY 320 125ml IV ONE (18:12)
--- NOTE | 2023-12-18 18:28 | CT Scan Report ---
ABDOMEN AND PELVIS CT WITH IV CONTRAST CT DOSE: 1563.68 mGy.cm HISTORY: Acute abdominal pain with nausea and vomiting Fever, Nausea and vomiting TECHNIQUE: Multiaxial CT images of the abdomen and pelvis were performed following the IV administrat ion of 119 cc of Optiray, A dose lowering technique was utilized adhering to the principles of ALARA . COMPARISON STUDY: 06/20/2016 FINDINGS: Groundglass and airspace opacities are noted within the posterior basal segment right lower lobe. Low suspicion 4 mm subpleural solid nodule of the right middle lobe on image 4 series 3. There is no free air. Nonspecific heterogeneity of the spleen similar to prior. Unremarkable pancreas. 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 Unremarkable gal lbladder and liver. Patency of the hepatic and portal veins. Mild nonspecific bilateral perinephric stranding. Urinary bladder wall thickening with partial disten tion. Atherosclerosis of the aorta. No lymphadenopathy. Tiny hiatal hernia. Colonic diverticulosis. N ormal appendix. Unremarkable soft tissues. No acute fracture. IMPRESSION: 1. Right lower lobe airspace opacities are suggestive of pneumonia pneumonia. 2. No bowel obstruction or bowel wall thickening. Normal appendix. 3. Colonic diverticulosis. 4. Additional findings as above. ACT 112: Negative or not required by law. The above report was generated using voice recognition software. It may contain grammatical, syntax o r spelling errors. Electronically signed by: Harpal Reyes M.D. 12/18/2023 6:26 PM
[2023-12-18] MEDS ORDERED: GLUCOSE 10 TAB/TUBE PO PRN (19:37)
[2023-12-18] MEDS ORDERED: GLUCAGON FOR INJ 1 MG VIAL SQ PRN (19:37)
[2023-12-18] MEDS ORDERED: VANCOMYCIN CONSULT ACTIVE PRN (19:37)
[2023-12-18] MEDS ORDERED: DEXTROSE 50% 50 ML SYRINGE IV PRN (19:37)
[2023-12-18] MEDS ORDERED: CARBOHYDRATES FOR HYPOGLYCEMIA PO PRN (19:37)
[2023-12-18] MEDS ORDERED: GLUCOSE 40% GEL 15 GM TUBE PO PRN (19:37)
[2023-12-18 20:02] LABS: Lyme Ab IgG w/WB Rflx Negative (Negative); Lyme Ab IgM w/WB Rflx Negative (Negative)
[2023-12-18] MEDS: CEFEPIME 2,000 MG in SYRINGE 0 ML IV SCH (20:05)
[2023-12-18] MEDS: LACTATED RINGER'S 1,000 ML IV SCH (20:05)
[2023-12-18] MEDS ORDERED: INFLUENZA VIRUS QUADRIVALENT VACCINE (IIV4) 0.5 ML SYR IM ONE (20:37)
[2023-12-18] MEDS: INSULIN ASPART PER UNIT CHARGE SC SCH (21:11)
[2023-12-18] MEDS: LANTUS PER UNIT CHARGE SQ SCH (21:11)
[2023-12-18] MEDS: VANCOMYCIN HCL 2,750 MG in SODIUM CHLORIDE 0.9% 500 ML IV ONE (21:13)
[2023-12-18] MEDS: AMITRIPTYLINE HCL 10 MG TAB PO SCH (21:18)
[2023-12-18] MEDS: CETIRIZINE HCL 10 MG TABLET PO SCH (21:19)
[2023-12-18] MEDS: MAGNESIUM OXIDE 400 MG TAB PO SCH (21:19)
[2023-12-18] MEDS: ACETAMINOPHEN 325 MG TAB PO PRN (21:19)
[2023-12-18] MEDS: DOXYCYCLINE HYCLATE 100 MG CAP PO SCH (21:19)
[2023-12-18] MEDS: GADOBUTROL 65ML VIAL IV ONE (23:26)
[2023-12-18] MEDS: KETOROLAC TROMETHAMINE 15 MG/ML VIAL IV ONE (23:39)
--- NOTE | 2023-12-19 00:02 | Magnetic Resonance Report ---
Exam(s): MRI HEAD W/WO Contrast IV Amt: 14cc gadavist EXAM: MR Head Without and With Intravenous Contrast CLINICAL HISTORY: Reason for exam: Severe frontal headache. TECHNIQUE: Magnetic resonance images of the head/brain without and with intravenous contrast in multiple planes. CONTRAST: Patient received 14cc gadavist of IV contrast COMPARISON: No relevant prior studies available. FINDINGS: Brain: Unremarkable. No mass. No hemorrhage. No acute infarct. Ventricles: Unremarkable. No ventriculomegaly. Bones/joints: Unremarkable. No acute fracture. Sinuses: Unremarkable as visualized. No acute sinusitis. Mastoid air cells: Minimal fluid in the inferior left mastoid air cells. Orbits: Unremarkable as visualized. IMPRESSION: No acute findings in the head/brain. Minimal fluid in the inferior left mastoid air cells. Electronically signed by: John Oconnor M.D. 12/19/23 00:01 AM
[2023-12-19] MEDS: ACETAMINOPHEN 1,000 MG/100 ML VIAL IV STA (03:11)
[2023-12-19 06:28] LABS: Basophils # (auto) 0.02 K/uL (0.00-0.20); Basophils % (auto) 0.2 %; Eosinophils # (auto) 0.01 K/uL (0.00-0.50); Eosinophils % (auto) 0.1 %; Hematocrit (blood only) 39.6 % (42.0-52.0); Hemoglobin 13.1 g/dl (14.0-18.0); Immature Granulocytes % (auto) 0.9 %; Lymphocytes # (auto) 0.95 K/uL (1.20-3.40); Lymphocytes % (auto) 8.1 %; Mean Corpuscular Hemoglobin 29.6 pg (25.0-34.0); Mean Corpuscular Hgb Conc 33.1 g/dL (32.0-36.0); Mean Corpuscular Volume 89.6 fL (80.0-100.0); Mean Platelet Volume 9.8 fL (9.4-12.4); Monocytes # (auto) 0.58 K/uL (0.11-0.59); Neutrophils # (auto) 10.04 K/uL (1.40-6.50); Neutrophils % (auto) 85.7 %; Platelet Count 154 K/uL (130-400); RDW Coefficient of Variation 14.6 % (11.5-14.5); RDW Standard Deviation 47.8 fL (36.4-46.3); Red Blood Count 4.42 M/uL (4.70-6.10)
[2023-12-19 06:48] LABS: Albumin Globulin Ratio 1.2 (0.9-2); Albumin Level 3.5 gm/dl (3.4-5.0); BUN Creatinine Ratio 11.9 (10-20); Bilirubin,Total 0.8 mg/dl (0.2-1.0); Calcium 8.3 mg/dl (8.6-10.3); Est GFR (African American) 97.3 ml/min; Est GFR (Non-African American) 83.9 ml/min; Potassium 3.7 mmol/L (3.5-5.1); Total Protein 6.5 gm/dl (6.0-8.3)
--- NOTE | 2023-12-19 07:55 | Electrocardiogram Report ---
Test Reason : Blood Pressure : / mmHG Vent. Rate : 113 BPM Atrial Rate : 113 BPM P-R Int : 170 ms QRS Dur : 088 ms QT Int : 318 ms P-R-T Axes : 046 010 025 degrees QTc Int : 436 ms Sinus tachycardia Borderline ECG When compared with ECG of 18-DEC-2023 04:46, No significant change was found Confirmed by Reza Luo ([id number]) on 12/19/2023 7:55:13 AM Referred By: REFERRED SELF Confirmed By:Reza Luo
[2023-12-19] MEDS: ROSUVASTATIN CALCIUM 20 MG TAB PO SCH (08:12)
[2023-12-19] MEDS: EZETIMIBE 10 MG TAB PO SCH (08:13)
[2023-12-19] MEDS: PANTOprazole 40 MG TAB PO SCH (08:13)
[2023-12-19] MEDS: VANCOMYCIN HCL 1,500 MG in SODIUM CHLORIDE 0.9% 500 ML IV SCH (08:13)
[2023-12-19] MEDS: SERTRALINE HCL 50 MG TABLET PO SCH (08:14)
[2023-12-19] MEDS ORDERED: CLOPIDOGREL BISULFATE 75 MG TAB PO SCH (09:00)
[2023-12-19] MEDS: ACETAMINOPHEN 1,000 MG/100 ML VIAL IV PRN (09:27)
[2023-12-19 09:34] LABS: Total Protein CSF 37.3 mg/dl (15-45)
[2023-12-19 09:39] LABS: Appearance CSF Clear; CSF Count Tube # 3; CSF Xanthrochromic No xanthochromia; Color CSF Colorless; Red Blood Cell CSF Manual 123 (0-); White Blood Cell CSF Manual 2 (0-5)
[2023-12-19] MEDS: ALUMINUM/MAGNESIUM SUSP 30 ML UDC PO STA (10:31)
--- NOTE | 2023-12-19 10:47 | Pharmacy Report ---
Pharmacy PK ABX Note - Date of Service December 19, 2023 - Assessment and Plan Assessment * 53 year old M receiving VANCOMYCIN + CEFEPIME + DOXYCYCLINE as empiric treatment of sepsis unknown source (IAI? meningitis?). Patient presented with fever, chills, myalgias, N&V. Of note, abx have only been ordered for 48 hour duration * Pertinent microbiologic data includes: negative resp BioFire, negative Lyme serologies (IgG/IgM), BLCX's pending, CSF studies to be collected Plan Vancomycin * Loading dose: 2750 mg IV x 1 * Maintenance dose: 1500 mg IV every 12 hours * Regimen is predicted to achieve target AUC/ANTONY of 400-600 mg/L.hr with ~ 14% risk of nephrotoxicity * Will check level if therapy to continue > 48 hours Pharmacy will continue to follow and will adjust dose/frequency as necessary. Thank you. Pharmacy has transitioned to AUC monitoring for vancomycin. AUC/ANTONY is the preferred PK/PD target and is associated with decreased risk of nephrotoxicity compared to traditional trough targets.
[2023-12-19 10:48] LABS: Cryptococcus neoformans/ga PCR Not Detected (NotDetected); Cytomegalovirus PCR Not Detected (NotDetected); Enterovirus PCR Not Detected (NotDetected); Escherichia coli K1 PCR Not Detected (NotDetected); Haemophilius influenzae PCR Not Detected (NotDetected); Herpes Simplex Virus 1 PCR Not Detected (NotDetected); Herpes Simplex Virus 2 PCR Not Detected (NotDetected); Human Herpes Virus 6 PCR Not Detected (NotDetected); Human Parechovirus PCR Not Detected (NotDetected); Listeria monocytogenes PCR Not Detected (NotDetected); Neisseria meningitidis PCR Not Detected (NotDetected); Streptococcus agalactiae PCR Not Detected (NotDetected); Streptococcus pneumoniae PCR Not Detected (NotDetected); Varicella Zoster Virus PCR Not Detected (NotDetected)
[2023-12-19] MEDS ORDERED: HYDROmorphone INJ 0.5 MG/0.5 ML SYR IV PRN (10:58)
[2023-12-19] MEDS: oxyCODONE HCL IR 5 MG TAB (IMMEDIATE RELEASE) PO PRN (11:05)
[2023-12-19] MEDS: ASPIRIN 81 MG CHEW PO SCH (11:43)
--- NOTE | 2023-12-19 13:48 | Hospitalist Progress Note ---
Date of Service December 19, 2023 Assessment & Plan (1) Fever: Plan: Patient presents with headache, fever, nausea vomiting, diffuse myalgia for the past 4 days. Multiple episode of fever CBC is remarkable for leukocytosis. BMP reveals mild hyponatremia Respiratory viral panel is negative Chest x-ray personally reviewed; no infiltrates present CT head without contrast did not show any acute finding Urinalysis does not show any infection CT abdomen and pelvis personally reviewed; right lower lobe infiltrates present. MRI brainno acute findings. Minimal fluid in inferior left mastoid air cells. Lyme screening test negative Lumbar puncture: WC count of 2, glucose and protein within lower limits. MRSA nares negative Likely source of infection is pneumonia in right lower lung base. Continue on cefepime, doxycycline and vancomycin. Will DC vancomycin if blood cultures remain negative Will follow-up on blood culture If patient continues to spike fever despite negative initial workup; might need infectious disease evaluation. Chronic conditions; Coronary artery disease status post stent in LAD in 2016patient presently on aspirin, rosuvastatin. Mood disordercontinue sertraline, amitriptyline HypertensionIrbesartan currently on hold Type 2 diabetes mellitushold home pioglitazone, started on sliding scale insulin here Plan of care discussed with the patient and patient's at bedside. He is agreeable with the plan. Time spent evaluating patient, direct bedside care, chart review, placing orders, interpretation of diagnostic studies, discussion with consultants, patient, and family members, as well as other required patient management activities is 50 minutes Please note the above document was generated using voice recognition software. It may contain grammatical, syntax or spelling errors. Any formal questions or concerns about the content, text or information contained within the body of this dictation should be directly addressed to the provider for clarification Admission and Anticipated Discharge Date Admission Date: December 18, 2023 Subjective Patient seen and examined at bedside. He continues to report headache, fever and sweats. Denies chest pain, shortness of breath or abdominal discomfort. Review of Systems Review of Systems: All systems reviewed & are unremarkable except as noted in Subjective Physical Exam Physical Exam: Constitutional: Alert oriented x 3, appears tired Respiratory: Bilateral vesicular breath sound Cardiovascular: RRR, no murmur, no edema Vessels: no JVD or carotid bruit Chest: normal inspection of chest Abdomen: Soft, nontender Musculoskeletal: no cyanosis or clubbing, extremities motor strength 5/5 Skin: no rashes, warm and dry normal turgor Neurologic: PERRL, EOMI, accommodation nl, no face palsy, no dysarthria CN's II- XI intact bilaterally and moves all extremities. No neck rigidity Psychiatric: A+Ox3, euthymic affect Results & Data Results & Data Vital Signs (Past 12 Hours) Vital Signs Temp Pulse Resp BP Pulse Ox O2 Del Method 12/19/23 10:30 37.8 C H 98 H 22 120/79 93 Room Air 12/19/23 09:35 Room Air 12/19/23 07:21 38.7 C H 104 H 22 153/89 H 96 Room Air 12/19/23 03:51 38.2 C H 12/19/23 03:00 39.4 C H 109 H 24 152/94 H 96 Room Air
--- NOTE | 2023-12-19 15:08 | Fluoroscopy Report ---
Fluoroscopic guided lumbar puncture CLINICAL HISTORY: Evaluate for meningitis/encephalitis PROCEDURE: Procedure and risks were explained. Informed consent was obtained. A final timeout was com pleted. Patient was placed prone on the fluoroscopic exam table. The lower lumbar region was prepped and draped in sterile fashion. 1% lidocaine was utilized for skin anesthesia. Utilizing fluoroscopic guidance, a 22-gauge spinal needle was advanced into the intrathecal space at the L3-4 disc space level. 2 permanent spot images were obtained. Approximately 8 mL of clear CSF flu id was removed and sent to lab for analysis. The needle was removed and Band-Aid applied. The patient tolerated the procedure well. Vital signs will be monitored postprocedure. Total fluoroscopy time is 20 seconds. DAP is 9.02 mcGy/m2. IMPRESSION: Lumbar puncture as above. Performed, dictated, and signed by Hola Rich PA-C; to be co-signed by Dr. Harpal Reyes. Electronically signed by: Harpal Reyes M.D. 12/19/2023 4:04 PM
[2023-12-19] MEDS: PROMETHAZINE HCL 6.25 MG in SODIUM CHLORIDE 0.9% 50 ML IV PRN (18:53)
[2023-12-20 06:55] LABS: Basophils # (auto) 0.02 K/uL (0.00-0.20); Basophils % (auto) 0.2 %; Hematocrit (blood only) 35.8 % (42.0-52.0); Hemoglobin 12.1 g/dl (14.0-18.0); Immature Granulocytes # (auto) 0.05 K/uL (0.01-0.20); Immature Granulocytes % (auto) 0.5 %; Lymphocytes % (auto) 11.8 %; Mean Corpuscular Hgb Conc 33.8 g/dL (32.0-36.0); Mean Corpuscular Volume 88.6 fL (80.0-100.0); Mean Platelet Volume 9.7 fL (9.4-12.4); Monocytes # (auto) 0.62 K/uL (0.11-0.59); Monocytes % (auto) 6.6 %; Neutrophils # (auto) 7.57 K/uL (1.40-6.50); Neutrophils % (auto) 80.9 %; Platelet Count 154 K/uL (130-400); RDW Coefficient of Variation 14.4 % (11.5-14.5); Red Blood Count 4.04 M/uL (4.70-6.10); White Blood Count 9.36 K/ul (4.8-10.8)
[2023-12-20 07:14] LABS: BUN Creatinine Ratio 11.2 (10-20); Calcium 8.3 mg/dl (8.6-10.3); Est GFR (African American) 112.3 ml/min; Est GFR (Non-African American) 96.9 ml/min; Potassium 3.5 mmol/L (3.5-5.1)
--- NOTE | 2023-12-20 14:40 | Hospitalist Progress Note ---
Date of Service December 20, 2023 Assessment & Plan (1) Fever: Plan: Right lower lobe pneumonia Patient presents with headache, fever, nausea vomiting, diffuse myalgia for the past 4 days. Multiple episode of fever prior to admission CBC is remarkable for leukocytosis. BMP reveals mild hyponatremia; improving subsequent lab. Respiratory viral panel is negative Chest x-ray personally reviewed; no infiltrates present CT head without contrast did not show any acute finding Urinalysis does not show any infection CT abdomen and pelvis personally reviewed; right lower lobe infiltrates present. MRI brainno acute findings. Minimal fluid in inferior left mastoid air cells. Lyme screening test negative Lumbar puncture: WC count of 2, glucose and protein within lower limits. MRSA nares negative Blood cultureno growth Continue cefepime and doxycycline while inpatient. Fever curve is overall improving. The likely source of the fever is pneumonia. He will need antibiotics for total of 7 days Chronic conditions; Coronary artery disease status post stent in LAD in 2016patient presently on aspirin, rosuvastatin. Mood disordercontinue sertraline, amitriptyline HypertensionIrbesartan currently on hold Type 2 diabetes mellitushold home pioglitazone, started on sliding scale insulin here Plan of care discussed with the patient and patient's at bedside. He is agreeable with the plan. Time spent evaluating patient, direct bedside care, chart review, placing orders, interpretation of diagnostic studies, discussion with consultants, patient, and family members, as well as other required patient management activities is 50 minutes Please note the above document was generated using voice recognition software. It may contain grammatical, syntax or spelling errors. Any formal questions or concerns about the content, text or information contained within the body of this dictation should be directly addressed to the provider for clarification Admission and Anticipated Discharge Date Admission Date: December 18, 2023 Subjective Patient seen and examined at bedside. Comfortable; not in distress. Denies chills, chest pain, shortness of breath, abdominal pain or urinary symptoms. No significant overnight events Episode of fever-decreased Review of Systems Review of Systems: All systems reviewed & are unremarkable except as noted in Subjective Physical Exam Physical Exam: Constitutional: Alert oriented x 3, appears tired Respiratory: Bilateral vesicular breath sound Cardiovascular: RRR, no murmur, no edema Vessels: no JVD or carotid bruit Chest: normal inspection of chest Abdomen: Soft, nontender Musculoskeletal: no cyanosis or clubbing, extremities motor strength 5/5 Skin: no rashes, warm and dry normal turgor Neurologic: PERRL, EOMI, accommodation nl, no face palsy, no dysarthria CN's II- XI intact bilaterally and moves all extremities. No neck rigidity Psychiatric: A+Ox3, euthymic affect Results & Data Results & Data Vital Signs (Past 12 Hours) Vital Signs Temp Pulse Pulse Resp BP Pulse Ox O2 Del Method 12/20/23 10:32 36.8 C 82 19 113/68 94 Room Air 12/20/23 09:29 Room Air 12/20/23 07:31 37.3 C 100 H 22 150/96 H 94 Room Air 12/20/23 07:13 82 12/20/23 03:11 37.9 C H 99 H 20 103/61 95 Room Air
[2023-12-20] MEDS: POLYETHYLENE (MIRALAX) 17 GM PACK PO SCH (16:56)
[2023-12-20] MEDS: MAGNESIUM HYDROXIDE SUSP 30 ML UDC PO ONE (16:57)
[2023-12-20] MEDS: COUGH DROP (SUGAR FREE) LOZ 24 LOZ/1 BOX BUCCAL PRN (23:50)
[2023-12-21 06:58] LABS: Basophils # (auto) 0.02 K/uL (0.00-0.20); Basophils % (auto) 0.3 %; Eosinophils # (auto) 0.04 K/uL (0.00-0.50); Eosinophils % (auto) 0.5 %; Hemoglobin 11.9 g/dl (14.0-18.0); Immature Granulocytes # (auto) 0.04 K/uL (0.01-0.20); Immature Granulocytes % (auto) 0.5 %; Lymphocytes # (auto) 1.26 K/uL (1.20-3.40); Lymphocytes % (auto) 16.3 %; Mean Corpuscular Hemoglobin 29.8 pg (25.0-34.0); Mean Corpuscular Volume 87.5 fL (80.0-100.0); Mean Platelet Volume 9.7 fL (9.4-12.4); Monocytes # (auto) 0.57 K/uL (0.11-0.59); Monocytes % (auto) 7.4 %; Neutrophils # (auto) 5.82 K/uL (1.40-6.50); Platelet Count 178 K/uL (130-400); RDW Coefficient of Variation 14.4 % (11.5-14.5); White Blood Count 7.75 K/ul (4.8-10.8)
[2023-12-21 07:10] LABS: BUN Creatinine Ratio 15.6 (10-20); Calcium 8.4 mg/dl (8.6-10.3); Creatinine Clr Calc Pharmacy 142.4 ml/min; Est GFR (African American) 111.8 ml/min; Est GFR (Non-African American) 96.5 ml/min; Potassium 3.3 mmol/L (3.5-5.1)
[2023-12-21 08:29] VITALS: TEMP 98.1; O2SAT 93
[2023-12-21] MEDS: POTASSIUM CHLORIDE CRTAB 20 MEQ TABCR PO STA (08:44)
[2023-12-21 11:38] VITALS: BP 126/83; RESP 19
--- NOTE | 2023-12-21 13:55 | Discharge Summary ---
Date of Service December 21, 2023 Admission HPI Per Admitting Provider History obtained from interview with the patient and chart review. Past medical history of type 2 diabetes mellitus, hyperlipidemia, coronary artery disease status post stent, hypertension, morbid obesity, GERD, gen eralized anxiety disorder Last confinement in May 2023 with lower back pain. He had presented in the ED earlier today; was discharged home after initial workup was negative. He returned back to the ED due to ongoing fevers. Patient presents with headache for 4 days; on bilateral frontal area. The headache is associated with fever and chills for past 2 days. The Tmax measured at home was 102 F. Patient also had multiple episode of vomiting containing food particles; Patient also reports diffuse myalgia, diaphoresis. He denies blurring of vision, neck pain, weakness/numbness of any body part, chest pain, shortness of breath, cough, abdominal pain, urinary symptoms, joint pain or rash. On presentation to the ED, he was normotensive, afebrile and saturating well on room air. CBC is remarkable for leukocytosis. BMP reveals mild hyponatremia with sodium of 133, bicarb of 18. Respiratory viral panel is negative Chest x-ray personally reviewed; no infiltrates present CT head without contrast did not show any acute finding Admission Exam Per Admitting Provider Constitutional: Alert oriented x 3, appears tired Respiratory: Bilateral vesicular breath sound Cardiovascular: RRR, no murmur, no edema Vessels: no JVD or carotid bruit Chest: normal inspection of chest Abdomen: Soft, nontender Musculoskeletal: no cyanosis or clubbing, extremities motor strength 5/5 Skin: no rashes, warm and dry normal turgor Neurologic: PERRL, EOMI, accommodation nl, no face palsy, no dysarthria CN's II- XI intact bilaterally and moves all extremities. No neck rigidity Psychiatric: A+Ox3, euthymic affect Principal Diagnosis RLL pneumonia Discharge Exam Constitutional: Alert oriented x 3. NAD Respiratory: RLL crackles. Cardiovascular: RRR, no murmur, no edema Vessels: no JVD or carotid bruit Chest: normal inspection of chest Abdomen: Soft, nontender Musculoskeletal: no cyanosis or clubbing, extremities motor strength 5/5 Skin: no rashes, warm and dry normal turgor Neurologic: PERRL, EOMI, accommodation nl, no face palsy, no dysarthria CN's II- XI intact bilaterally and moves all extremities. No neck rigidity Psychiatric: A+Ox3, euthymic affect Discharge Data Allergies Allergy/AdvReac Type Severity Reaction Status Date / Time No Known Allergies Allergy Verified 12/18/23 16:42 Consultations 12/18/23 17:24 ED Decision to Admit Stat Ordered Studies 12/18/23 15:08 CT head/brain wo con Stat 12/18/23 17:57 CT abd pelvis IV con only Urgent MRI Brain [MR brain wo/w con] Routine 12/19/23 07:37 IR lumbar puncture diagnostic Routine Hospital Course (1) Fever: Per prior attending with addendum: Right lower lobe pneumonia Patient presents with headache, fever, nausea vomiting, diffuse myalgia for the past 4 days. Multiple episode of fever prior to admission CBC is remarkable for leukocytosis. BMP reveals mild hyponatremia; improving subsequent lab. Respiratory viral panel is negative Chest x-ray personally reviewed; no infiltrates present CT head without contrast did not show any acute finding Urinalysis does not show any infection CT abdomen and pelvis personally reviewed; right lower lobe infiltrates present. MRI brainno acute findings. Minimal fluid in inferior left mastoid air cells. Lyme screening test negative Lumbar puncture: WC count of 2, glucose and protein within lower limits. MRSA nares negative Blood cultureno growth Continue cefepime and doxycycline while inpatient. Fever curve is overall improving. The likely source of the fever is pneumonia. He will need antibiotics for total of 7 days Chronic conditions; Coronary artery disease status post stent in LAD in 2016patient presently on aspirin, rosuvastatin. Mood disordercontinue sertraline, amitriptyline HypertensionIrbesartan currently on hold Type 2 diabetes mellitushold home pioglitazone, started on sliding scale insulin here Plan of care discussed with the patient and patient's at bedside. He is agreeable with the plan. Time spent evaluating patient, direct bedside care, chart review, placing orders, interpretation of diagnostic studies, discussion with consultants, patient, and family members, as well as other required patient management activities is 50 minutes Please note the above document was generated using voice recognition software. It may contain grammatical, syntax or spelling errors. Any formal questions or concerns about the content, text or information contained within the body of this dictation should be directly addressed to the provider for clarification Plan Addendum: Patient was seen and examined as a follow-up of RLL pneumonia. Patient reports improving cough with clear sputum. Patient is hemodynamically stable and has been afebrile for more than 1 day. Patient would like to go home. Patient reports feeling better. He is being discharged with following instruction at the point of discharge: Follow-up with your primary care physician within a week time and likely you will need labs CBC/CMP/magnesium/phosphorus. You were admitted and found to have RLL pneumonia, you will need repeat chest x- ray in about 6 weeks time to document resolution of pneumonia. Coordinate with your PCP office to set up the test. Continue with antibiotic as prescribed. Probiotics will be added. If worsening cough with yellow sputum, new fever/worsening fever, you will need urgent evaluation either at the PCP office or at the emergency. Take your medications as prescribed. Please make sure that you are able to get your medications today by calling your pharmacy before you leave the hospital so that your treatment continuity is not broken. Home Health Attestation I certify that this patient is under my care and that I, or a physicians campus administrative assistant working with me, had a face to-face encounter that meets the home health [id number] encounter requirements with this patient. The encounter with the patient was in whole, or in part, for the following medical condition, which is the primary reason for home health care (list medical condition): I certify that, based on my findings, the following services are medically necessary home health services: My clinical findings support the need for the above services because: Further, I certify that my clinical findings support that this patient is homebound (i.e. absences from home require considerable and taxing effort and are for medical reasons or hindu services or infrequently or of short duration when for other reasons) because: Certification for Home Health Services: Based on the above findings, I certify that this patient is confined to the home and needs intermittent shelter care, physical therapy and/or speech therapy or continues to need occupational therapy. The patient is under my care, and I have initiated the establishment of the plan of care. This patient will be followed by a physician who will periodically review the plan of care. Total Time Total Time Spent Total Time Spent (In Minutes): 45 Discharge Plan Discharge Items Patient Disposition: Home - Self-Care Reason For Visit: FEVER Discharge Diagnosis: RLL pneumonia Activity: Resume your previous activity Non-emergency contact: Primary Care Provider Call non-emergency contact if: you have any medication questions, your symptoms worsen and your temperature is above 101 Follow-up/Referrals: Tatyana Holcomb MD [Primary Care Provider] - Diet: Carb Consistent or DM2 Addtl Attending Provider Instructions: Follow-up with your primary care physician within a week time and likely you will need labs CBC/CMP/magnesium/phosphorus. You were admitted and found to have RLL pneumonia, you will need repeat chest x- ray in about 6 weeks time to document resolution of pneumonia. Coordinate with your PCP office to set up the test. Continue with antibiotic as prescribed. Probiotics will be added. If worsening cough with yellow sputum, new fever/worsening fever, you will need urgent evaluation either at the PCP office or at the emergency. Take your medications as prescribed. Please make sure that you are able to get your medications today by calling your pharmacy before you leave the hospital so that your treatment continuity is not broken. Pending Studies at Discharge: Yes Stand-Alone Forms: My [facility] [address], Smoking Cessation Medications and DC Order Prescriptions: New doxycycline hyclate 100 mg Capsule 100 mg PO BID 5 Days Qty: 10 0RF aspirin [Children's Aspirin] 81 mg Tablet,Chewable 81 mg PO DAILY Qty: 30 0RF cefdinir 300 mg capsule 300 mg PO BID 5 Days Qty: 10 0RF Probiotic 3 billion cell capsule 3,000 mmu cells PO DAILY 7 Days Qty: 7 0RF Rx Instructions: administer with a meal dextromethorphan-guaifenesin 20-400 mg tablet 1 tab PO Q8H PRN (Reason: cough) 7 Days Qty: 21 0RF Continued pantoprazole 40 mg tablet,delayed release (DR/EC) 40 mg PO DAILY Qty: 30 5RF rosuvastatin 40 mg tablet 40 mg PO DAILY Qty: 90 3RF irbesartan 75 mg tablet 75 mg PO DAILY pioglitazone [Actos] 30 mg tablet 30 mg PO DAILY acetaminophen [Tylenol Extra Strength] 500 mg Tablet 1,000 mg PO Q6H PRN (Reason: Pain) magnesium oxide 400 mg (241.3 mg magnesium) tablet 400 mg PO HS amitriptyline 10 mg tablet 10 mg PO HS sertraline 25 mg tablet 25 mg PO QAM lorazepam 1 mg tablet 1 mg PO TID PRN (Reason: Anxiety) ezetimibe 10 mg tablet 10 mg PO QAM levocetirizine 5 mg tablet 5 mg PO QPM meclizine 25 mg tablet 25 mg PO TID PRN (Reason: dizziness) Qty: 14 0RF Discontinued clopidogrel 75 mg tablet 75 mg PO DAILY Qty: 90 3RF Discharge Orders: Discharge Order (Routine); Ordered 12/21/23 Ordered By: Destinee Mujica/Other Patient Handouts: Managing Type 2 Diabetes Admission Data Admit Date/Time: 12/18/23 17:55 Attending Provider: Destinee Brown Admit Provider: Darinel Gómez Primary Care Provider: Tatyana Holcomb Other Providers: Christie Fitzgerald
[2023-12-21 15:38] VITALS: PULSE 77
[2023-12-23 01:02] LABS: Cryptococcal Antigen Not Detected (Not Detected); Source CSF; West Nile Virus, PCR Source CSF; West Nile Virus, PCR, CSF NOT DETECTED (NOT DETECTED)
== END 2023-12-21 16:00 | disposition home or self-care (01) | DRG 194 ==
LOC: ED 14:48 → SUATTDRO 17:55 → 2E 17:55
DX: E66.01 Morbid (severe) obesity due to excess calories; Z79.02 Long term (current) use of antithrombotics/antiplatelets; Z95.5 Presence of coronary angioplasty implant and graft; I25.10 Atherosclerotic heart disease of native coronary artery without angina pectoris; F41.1 Generalized anxiety disorder; R50.9 Fever, unspecified; E87.1 Hypo-osmolality and hyponatremia; E78.5 Hyperlipidemia, unspecified; R11.2 Nausea with vomiting, unspecified; E11.9 Type 2 diabetes mellitus without complications; F17.210 Nicotine dependence, cigarettes, uncomplicated; J18.9 Pneumonia, unspecified organism

== ENCOUNTER 2024-08-14 17:11 | Observation (INO) ==
[2024-08-14] MEDS: ASPIRIN CHEW 324 MG PO STA (17:30)
--- NOTE | 2024-08-14 17:31 | Emergency Department Note ---
Impression & Plan Chest pain, exertional ED Provider Note NAME: JADA AGUILLON AGE: 53 SEX: M : 1970 ARRIVES VIA: Walk-In INFORMANT: Patient, ED PROVIDER(S): Simón Barrett DO CHIEF COMPLAINT: Chest discomfort HPI: The patient is a 53-year-old male who has a history of coronary artery disease who presented to the emergency department for an evaluation of chest discomfort. The patient describes right sided chest discomfort that feels as though something is pushing on his chest. He has noticed that over the course of the last several days. He describes it as an intermittent sensation that is worsened with exertion. The patient states that the sensation relieved with rest. He does have a history of coronary artery stenting. He does take blood pressure medication as well as antiplatelet medication. He states has been compliant with his outpatient medication otherwise. The patient denies having any fever or cough. The patient has not been seen by his primary care physician or his neurophysiology tech for the symptoms. He presented to the emergency department for further evaluation today. ROS: See above HPI for pertinent positives & negatives. A total of 10 systems reviewed and were otherwise negative. PAST MEDICAL HISTORY: See Below PAST SURGICAL HISTORY: See Below FAMILY HISTORY: See Below SOCIAL HISTORY: See Below HOME MEDICATIONS: See Below ALLERGIES: See Below VITALS: See Below PHYSICAL EXAMINATION: GENERAL: Patient is awake alert in no acute distress patient is resting comfortably and showing no signs of anxiety EYES: The conjunctivae are clear. The pupils are round and reactive. EARS, NOSE, MOUTH AND THROAT: The nose is without any evidence of any deformity. NECK: The neck is nontender and supple. RESPIRATORY: Normal respiratory effort is noted there is no evidence of wheezing rhonchi or rales CARDIOVASCULAR: Regular rate and rhythm noted there no murmurs rubs or gallops normal S1 normal S2. GASTROINTESTINAL: The abdomen is soft. Abdomen is nontender. MUSCULOSKELETAL/EXTREMITIES: There is no evidence of gross deformity full range of motion is noted in the hips and shoulders. SKIN: There is no obvious evidence of any rash. There are no petechiae, pallor or cyanosis noted. NEUROLOGIC: Patient is awake alert and oriented x3. Gait is steady. MEDICAL DECISION MAKING: The patient 53-year-old male who presented to the emergency department for an evaluation of chest pain. The patient describes exertional chest pain that he has been experiencing over the last several days. The patient presented to the emergency department for further evaluation. The patient does not have any chest pain at this time. EKG showed no acute ischemic changes and cardiac biomarker was negative despite having intermittent symptoms over the last several days. I discussed the patient's laboratory and radiographic studies with him. Given his risk factors I do not feel that he would be a good candidate for outpatient workup. For this reason I discussed his condition with the on-call [facility] group. They have agreed to evaluate the patient in the emergency department for further management and disposition. Triage Nursing notes reviewed. Prior medical records reviewed Vital Signs: reviewed and remarkable for no significant abnormalities Differential diagnosis: Cardiac ischemia, aortic dissection, pulmonary embolism, pneumothorax, pneumonia, pericarditis, myocarditis, esophageal rupture, GERD, cholecystitis, pancreatitis, musculoskeletal, as well as other pathologies. ER treatment provided: See below Diagnostics interpreted by me: ECG: EKG was obtained in the emergency department. My interpretation is normal sinus rhythm at 96 bpm. There was no ectopy. Inferior Q waves were noted. This was compared to a tracing from December 18, 2023. No changes were noted. Cardiac Monitoring: An order was placed for continuous cardiac monitoring. The monitor shows a rate of 90 bpm with sinus rhythm. Laboratory studies: As stated above and show below. Imaging studies: See below. Radiographic imaging was reviewed by myself Consultation(s): I discussed this case with Ngozi who is on-call for the [facility] group. Past Med/Surg History Problem List (Updated 08/14/24 @ 18:59 by Simón Barrett DO) Chest pain, exertional (Acute) Fever (Acute) Hyponatremia (Acute) Fever Myalgia (Acute) Headache (Acute) Lumbar facet joint syndrome Low back pain (Acute) Lumbar disc disease (Acute) History of CAD (coronary artery disease) (Acute) Normal left ventricular systolic function and wall motion Normal stress echocardiogram Dyspnea Bilateral headaches History of COVID-19 Antiplatelet or antithrombotic long-term use Coronary artery disease Dyslipidemia Presence of stent in LAD coronary artery IBS (irritable bowel syndrome) Hypertension (Chronic) GERD (gastroesophageal reflux disease) Medical History Anxiety state, unspecified Diverticulosis Elevated fasting glucose Internal hemorrhoids Chest pain Palpitations Surgical History H/O colonoscopy (08/2017) History of esophagogastroduodenoscopy (EGD) (07/2017) Stented coronary artery Family History Mother Crohn's disease Denies family history of Colorectal cancer Ulcerative colitis Social History Smoking Status: Current every day smoker Tobacco Type: Cigarettes Cigarettes Per Day: pack; Second Hand Exposure: No; Do You Dip or Chew Tobacco: No; Hx Alcohol Use: Yes Alcohol type: beer Hx Substance Use: No Preferred Language: Guamanian Communication Ability: Effective Visual Impairment: No Limitations Hearing Ability: Hard of Hearing Heating Element Repairer Required: No Beliefs That Will Affect Care: None marital status: Current Living Situation: Spouse current occupational status: employed 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 Feels Safe at Home: Yes Childhood Exposure to Second-Hand Smoke: Yes caffeine: Yes during the past year weight has: remained stable Dental Care, Regularly: No Physical Activity Frequency: Does not Exercise Seatbelt Use: always Sunscreen Use: Yes Assistive Devices: Glasses Allergies Allergies Allergy/AdvReac Type Severity Reaction Status Date / Time No Known Allergies Allergy Verified 04/18/24 15:47 Home Meds Home Medications Medication Instructions Recorded Confirmed irbesartan 75 mg tablet 75 mg PO DAILY 09/21/21 12/18/23 pioglitazone 30 mg tablet (Actos) 30 mg PO DAILY 09/21/21 12/18/23 acetaminophen 500 mg tablet 1,000 mg PO Q6H PRN Pain 05/23/23 12/18/23 (Tylenol Extra Strength) amitriptyline 10 mg tablet 10 mg PO HS 05/23/23 12/18/23 ezetimibe 10 mg tablet 10 mg PO QAM 05/23/23 12/18/23 levocetirizine 5 mg tablet 5 mg PO QPM 05/23/23 12/18/23 lorazepam 1 mg tablet 1 mg PO TID PRN Anxiety 05/23/23 12/18/23 magnesium oxide 400 mg (241.3 mg 400 mg PO HS 05/23/23 12/18/23 magnesium) tablet sertraline 25 mg tablet 25 mg PO QAM 05/23/23 12/18/23 Previous Rx's Medication Instructions Recorded pantoprazole 40 mg tablet,delayed 40 mg PO DAILY #30 tabs 10/04/19 release meclizine 25 mg tablet 25 mg PO TID PRN dizziness #14 tabs 07/30/21 rosuvastatin 40 mg tablet 40 mg PO DAILY #90 tabs 03/13/24 clopidogrel 75 mg tablet 75 mg PO DAILY #90 tabs 04/18/24 Results & Data (ED) Vital Signs Vital Signs - 24 hr 08/14/24 17:14 08/14/24 17:55 08/14/24 18:03 Temperature 36.2 C L Temperature Source Temporal Artery Scan Pulse Rate 91 H 82 Pulse Rate [Finger] 90 Pulse Rhythm Regular Pulse Strength Normal Respiratory Rate 18 20 Respiratory Effort / Characteristics Non-Labored Spontaneous Respiratory Depth Normal Respiratory Pattern Regular Blood Pressure 192/114 H Blood Pressure [Left Arm] 151/100 H Blood Pressure Mean 140 Blood Pressure Mean [Left Arm] 117 Blood Pressure Position Sitting Pulse Oximetry 96 94 Oxygen Delivery Method Room Air Room Air Sepsis Recent Fever Within 48 Hours No Sepsis New/Unexplained Change in Mental Status No Sepsis Action Taken by Nursing No Action Required Home Medications Current Medication List: was personally reviewed by me Laboratory Data Attestation: I reviewed the patient's lab results. 08/14/24 17:21 08/14/24 17:21 Lab Results 08/14/24 Range/Units 17:21 WBC 8.99 (4.8-10.8) K/ul RBC 5.12 (4.70-6.10) M/uL Hgb 15.4 (14.0-18.0) g/dl Hct 44.5 (42.0-52.0) % MCV 86.9 (80.0-100.0) fL MCH 30.1 (25.0-34.0) pg MCHC 34.6 (32.0-36.0) g/dL RDW Std Deviation 43.7 (36.4-46.3) fL RDW Coeff of Miguel 13.6 (11.5-14.5) % Plt Count 227 (130-400) K/uL MPV 9.9 (9.4-12.4) fL Immature Gran % (Auto) 1.2 % Neut % (Auto) 58.8 % Lymph % (Auto) 32.3 % [place] % (Auto) 6.9 % Eos % (Auto) 0.7 % Baso % (Auto) 0.1 % Neut # (Auto) 5.29 (1.40-6.50) K/uL Lymph # (Auto) 2.90 (1.20-3.40) K/uL [place] # (Auto) 0.62 H (0.11-0.59) K/uL Eos # (Auto) 0.06 (0.00-0.50) K/uL Baso # (Auto) 0.01 (0.00-0.20) K/uL Immature Gran # (Auto) 0.11 (0.01-0.20) K/uL PT 10.6 (9.0-12.0) Seconds INR 1.0 (0.9-1.1) APTT 28 (21-31) Seconds PTT Ratio 1.0 Sodium 138 (136-145) mmol/L Potassium 3.9 (3.5-5.1) mmol/L Chloride 105 (98-107) mmol/L Carbon Dioxide 24 (21-32) mmol/L Anion Gap 9 (3-11) BUN 18 (6-23) mg/dl Creatinine 1.03 (0.6-1.4) mg/dl Est Cr Clr Drug Dosing 126.9 ml/min Est GFR ( Amer) 95.0 ml/min Est GFR (Non-Af Amer) 82.0 ml/min BUN/Creatinine Ratio 17.5 (10-20) Glucose 97 (70-99(Fasting)) mg/dl Calcium 9.8 (8.6-10.3) mg/dl Total Bilirubin 0.7 (0.2-1.0) mg/dl AST 17 (13-39) U/L ALT 14 (7-52) U/L Alkaline Phosphatase 97 (34-104) U/L Troponin I High Sens 4.0 (0-20) pg/ml Total Protein 8.1 (6.0-8.3) gm/dl Albumin 4.6 (3.4-5.0) gm/dl Globulin 3.5 (2.5-4.0) gm/dl Albumin/Globulin Ratio 1.3 (0.9-2) Lipase 30 (11-82) U/L Administered Medications Discontinued Medications Aspirin (Aspirin Chew 324 Mg) 324 mg PO NOW STA Stop: 08/14/24 17:23 Last Admin: 08/14/24 17:30 Dose: 324 mg Documented By: GAVI Imaging Data Attestation: I personally reviewed and interpreted this imaging study as follows: My Impression: 1 view chest x-ray was obtained in the emergency department. My interpretation is no free air or infiltrate, final report below. Radiologist's Impression: Chest X-Ray 08/14/24 17:22 XR chest 1V portable CLINICAL HISTORY: Chest pain, nonspecific TECHNIQUE: Single frontal radiograph of the chest was obtained. Comparison: Comparison is made to chest radiograph 12/18/2023 FINDINGS: Exam is limited by underpenetration. Images The cardiomediastinal silhouette is normal. The lungs are clear. No evidence of pleural effusion or pneumothorax. IMPRESSION: No acute chest disease. ACT 112: Negative or not required by law. Electronically signed by: Dennis Petty M.D. 08/14/2024 6:32 PM Discharge Plan Visit Data Chief Complaint: Chest Pain Stated Complaint: CHEST PAIN ED Provider: Simón Barrett Discharge Problem: Chest pain, exertional Patient Disposition: Being Evaluated by Hospitalist Forms Stand Alone Forms: My [facility] Prescriptions Prescriptions: No Action pantoprazole 40 mg tablet,delayed release (DR/EC) 40 mg PO DAILY Qty: 30 5RF rosuvastatin 40 mg tablet 40 mg PO DAILY Qty: 90 3RF clopidogrel 75 mg tablet 75 mg PO DAILY Qty: 90 3RF irbesartan 75 mg tablet 75 mg PO DAILY pioglitazone [Actos] 30 mg tablet 30 mg PO DAILY acetaminophen [Tylenol Extra Strength] 500 mg Tablet 1,000 mg PO Q6H PRN (Reason: Pain) magnesium oxide 400 mg (241.3 mg magnesium) tablet 400 mg PO HS amitriptyline 10 mg tablet 10 mg PO HS sertraline 25 mg tablet 25 mg PO QAM lorazepam 1 mg tablet 1 mg PO TID PRN (Reason: Anxiety) ezetimibe 10 mg tablet 10 mg PO QAM levocetirizine 5 mg tablet 5 mg PO QPM meclizine 25 mg tablet 25 mg PO TID PRN (Reason: dizziness) Qty: 14 0RF Referrals Referrals: Tatyana Holcomb MD [Primary Care Provider] -
[2024-08-14 17:34] LABS: Basophils # (auto) 0.01 K/uL (0.00-0.20); Basophils % (auto) 0.1 %; Eosinophils # (auto) 0.06 K/uL (0.00-0.50); Eosinophils % (auto) 0.7 %; Hematocrit (blood only) 44.5 % (42.0-52.0); Hemoglobin 15.4 g/dl (14.0-18.0); Immature Granulocytes # (auto) 0.11 K/uL (0.01-0.20); Immature Granulocytes % (auto) 1.2 %; Lymphocytes % (auto) 32.3 %; Mean Corpuscular Hemoglobin 30.1 pg (25.0-34.0); Mean Corpuscular Hgb Conc 34.6 g/dL (32.0-36.0); Mean Corpuscular Volume 86.9 fL (80.0-100.0); Mean Platelet Volume 9.9 fL (9.4-12.4); Monocytes # (auto) 0.62 K/uL (0.11-0.59); Monocytes % (auto) 6.9 %; Neutrophils # (auto) 5.29 K/uL (1.40-6.50); Neutrophils % (auto) 58.8 %; Platelet Count 227 K/uL (130-400); RDW Coefficient of Variation 13.6 % (11.5-14.5); RDW Standard Deviation 43.7 fL (36.4-46.3); Red Blood Count 5.12 M/uL (4.70-6.10); White Blood Count 8.99 K/ul (4.8-10.8)
[2024-08-14 17:54] LABS: Albumin Globulin Ratio 1.3 (0.9-2); Albumin Level 4.6 gm/dl (3.4-5.0); BUN Creatinine Ratio 17.5 (10-20); Bilirubin,Total 0.7 mg/dl (0.2-1.0); Calcium 9.8 mg/dl (8.6-10.3); Creatinine Clr Calc Pharmacy 126.9 ml/min; Globulin 3.5 gm/dl (2.5-4.0); Potassium 3.9 mmol/L (3.5-5.1); Total Protein 8.1 gm/dl (6.0-8.3)
[2024-08-14 18:09] LABS: Partial Thromboplastin Time 28 Seconds (21-31); Prothrombin Time 10.6 Seconds (9.0-12.0)
--- NOTE | 2024-08-14 18:33 | XRay Report ---
XR chest 1V portable CLINICAL HISTORY: Chest pain, nonspecific TECHNIQUE: Single frontal radiograph of the chest was obtained. Comparison: Comparison is made to chest radiograph 12/18/2023 FINDINGS: Exam is limited by underpenetration. Images The cardiomediastinal silhouette is normal. The lungs are clear. No evidence of pleural effusion or pneumothorax. IMPRESSION: No acute chest disease. ACT 112: Negative or not required by law. Electronically signed by: Dennis Petty M.D. 08/14/2024 6:32 PM
--- NOTE | 2024-08-14 19:14 | History & Physical Report ---
Date of Service August 14, 2024 Assessment & Plan (1) Chest pain, exertional: Plan: In summary, 53-year-old male with a history of ischemic heart disease and LAD stent, diabetes mellitus, hyperlipidemia and hypertension admitted for observation for atypical chest pain. Will cycle troponins Consult cardiology EKG reviewed and there are no acute changes Chest x-ray without acute pathology Probable stress test in the a.m. if troponins remain within normal limits Echocardiogram (2) Normal left ventricular systolic function and wall motion: Plan: Continue outpatient medications (3) Coronary artery disease: Plan: Continue aspirin Continue rosuvastatin (4) Presence of stent in LAD coronary artery: Plan: Continue clopidogrel (5) Hypertension: Plan: Continue Irbesartan (6) GERD (gastroesophageal reflux disease): Plan: Continue pantoprazole (7) Diabetes 1.5, managed as type 2: Plan: Sliding scale insulin Repeat A1c (8) GLORIA (obstructive sleep apnea): Plan: Continue CPAP at at bedtime Plan Total of 75 minutes was spent in the care coordination of this patient. History of Present Illness Chief Complaint: Chest pain Primary Care Provider: Tatyana Holcomb MD Reza Jesus is a 53 y/o male with previous medical history significant for ischemic heart disease with an LAD stent, hypertension, type 2 diabetes mellitus, obstructive sleep apnea, hyperlipidemia, GERD, irritable bowel syndrome and lumbar disc disease who presents to the ER this evening with chest pain. He has had a pressure-like chest pain in the right precordial area on and off for the past couple days. There is no radiation of the pressure. He denies nausea, diaphoresis or shortness of breath. He said it is very fleeting and only lasts a couple seconds. He is obviously quite concerned because of his coronary artery disease history. He denies any nausea or vomiting with this. His last stress echo was in 2021 was negative for ischemia. He follows with cardiology every 6 months. In the ED is initial troponin is negative. His EKG shows no acute changes. Allergies Allergy/AdvReac Type Severity Reaction Status Date / Time No Known Allergies Allergy Verified 04/18/24 15:47 Home Medications Medication Instructions Recorded Confirmed Type pantoprazole 40 mg tablet,delayed 40 mg PO DAILY #30 tabs 10/04/19 08/14/24 Rx release irbesartan 75 mg tablet 75 mg PO DAILY 09/21/21 08/14/24 History pioglitazone 30 mg tablet (Actos) 30 mg PO DAILY 09/21/21 08/14/24 History acetaminophen 500 mg tablet 1,000 mg PO Q6H PRN Pain 05/23/23 08/14/24 History (Tylenol Extra Strength) amitriptyline 10 mg tablet 10 mg PO HS 05/23/23 08/14/24 History ezetimibe 10 mg tablet 10 mg PO QAM 05/23/23 08/14/24 History levocetirizine 5 mg tablet 5 mg PO QPM 05/23/23 08/14/24 History lorazepam 1 mg tablet 1 mg PO DAILY PRN Anxiety 05/23/23 08/14/24 History magnesium oxide 400 mg (241.3 mg 400 mg PO HS 05/23/23 08/14/24 History magnesium) tablet sertraline 25 mg tablet 25 mg PO QAM 05/23/23 08/14/24 History rosuvastatin 40 mg tablet 40 mg PO DAILY #90 tabs 03/13/24 08/14/24 Rx clopidogrel 75 mg tablet 75 mg PO DAILY #90 tabs 04/18/24 08/14/24 Rx Past Med/Surg History Problem List (Updated 08/14/24 @ 19:53 by Robinson Arora DO) GLORIA (obstructive sleep apnea) Diabetes 1.5, managed as type 2 Chest pain, exertional (Acute) Fever (Acute) Hyponatremia (Acute) Fever Myalgia (Acute) Headache (Acute) Lumbar facet joint syndrome Low back pain (Acute) Lumbar disc disease (Acute) History of CAD (coronary artery disease) (Acute) Normal left ventricular systolic function and wall motion Normal stress echocardiogram Dyspnea Bilateral headaches History of COVID-19 Antiplatelet or antithrombotic long-term use Coronary artery disease Dyslipidemia Presence of stent in LAD coronary artery IBS (irritable bowel syndrome) Hypertension (Chronic) GERD (gastroesophageal reflux disease) Medical History Anxiety state, unspecified Diverticulosis Elevated fasting glucose Internal hemorrhoids Chest pain Palpitations Surgical History H/O colonoscopy (08/2017) History of esophagogastroduodenoscopy (EGD) (07/2017) Stented coronary artery Family History Mother Crohn's disease Denies family history of Colorectal cancer Ulcerative colitis Social History Smoking Status: Current every day smoker Tobacco Type: Cigarettes Cigarettes Per Day: pack; Second Hand Exposure: No; Do You Dip or Chew Tobacco: No; Hx Alcohol Use: Yes Alcohol type: beer Hx Substance Use: No Preferred Language: Occitan Communication Ability: Effective Visual Impairment: No Limitations Hearing Ability: Hard of Hearing Nurse Clinical Required: No Beliefs That Will Affect Care: None marital status: Current Living Situation: Spouse current occupational status: employed 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 Feels Safe at Home: Yes Childhood Exposure to Second-Hand Smoke: Yes caffeine: Yes during the past year weight has: remained stable Dental Care, Regularly: No Physical Activity Frequency: Does not Exercise Seatbelt Use: always Sunscreen Use: Yes Assistive Devices: Glasses Review of Systems Review of Systems: Constitutional- no fever; no weight loss Eyes- no acute visual changes ENT- no sinus drainage; no pharyngitis Pulmonary- no cough, no wheezing, no shortness of breath Cardiac- + chest pain, no palpitations, no orthopnea, no dependent edema GI- no nausea, no vomiting, no diarrhea, no melena, no hematochezia - no dysuria, no hematuria Musculoskeletal- no arthralgias, no myalgias Derm- no rashes, no new skin lesions, no changing skin lesions Hematologic- no unusual bruising, no unusual bleeding Lymphatics- no adenopathy Endocrine- no polyuria or polydipsia; no heat or cold intolerance Neuro- no headaches, no focal neurologic symptoms Psych- no anxiety, no depression Physical Exam Physical Exam: General- adult male seen at bedside with his present Head- atraumatic Eyes- PERRL, EOMI, anicteric ENT- oropharynx clear Neck- supple, no JVD, no adenopathy, no thyromegaly; carotids +2/2, no bruits appreciated Lungs- clear to auscultation and percussion Heart- regular rhythm; no murmur, no gallop, no rub appreciated Abdomen- normal bowel sounds, soft, nontender, no masses or hepatosplenomegaly Extremities- no pretibial edema, no calf tenderness; peripheral pulses intact Neuro- alert, oriented x 3; PERRL, EOMI; no facial palsy; no dysarthria; motor 5/5 bilaterally; no cogwheel rigidity; patellar DTRs +2/2; toes downgoing bilaterally; finger to nose intact bilaterally MS: He has some pinpoint discomfort in the right upper chest but he is not sure if that is what he has been feeling. Skin- warm & dry Results & Data Results & Data Vital Signs (Past 12 Hours) Vital Signs Temp Pulse Pulse Resp BP BP Pulse Ox 08/14/24 18:03 90 20 151/100 H 94 08/14/24 17:55 82 08/14/24 17:14 36.2 C L 91 H 18 192/114 H 96 O2 Del Method 08/14/24 18:03 Room Air 08/14/24 17:55 08/14/24 17:14 Room Air Laboratory Results Laboratory Results WBC 8.99 K/ul (4.8-10.8) 08/14/24 17:21 RBC 5.12 M/uL (4.70-6.10) 08/14/24 17:21 Hgb 15.4 g/dl (14.0-18.0) 08/14/24 17:21 Hct 44.5 % (42.0-52.0) 08/14/24 17:21 MCV 86.9 fL (80.0-100.0) 08/14/24 17:21 MCH 30.1 pg (25.0-34.0) 08/14/24 17:21 MCHC 34.6 g/dL (32.0-36.0) 08/14/24 17:21 RDW Std Deviation 43.7 fL (36.4-46.3) 08/14/24 17:21 RDW Coeff of Miguel 13.6 % (11.5-14.5) 08/14/24 17:21 Plt Count 227 K/uL (130-400) 08/14/24 17:21 MPV 9.9 fL (9.4-12.4) 08/14/24 17:21 Immature Gran % (Auto) 1.2 % 08/14/24 17:21 Neut % (Auto) 58.8 % 08/14/24 17:21 Lymph % (Auto) 32.3 % 08/14/24 17:21 Pope % (Auto) 6.9 % 08/14/24 17:21 Eos % (Auto) 0.7 % 08/14/24 17:21 Baso % (Auto) 0.1 % 08/14/24 17:21 Neut # (Auto) 5.29 K/uL (1.40-6.50) 08/14/24 17:21 Lymph # (Auto) 2.90 K/uL (1.20-3.40) 08/14/24 17:21 Pope # (Auto) 0.62 K/uL (0.11-0.59) H 08/14/24 17:21 Eos # (Auto) 0.06 K/uL (0.00-0.50) 08/14/24 17:21 Baso # (Auto) 0.01 K/uL (0.00-0.20) 08/14/24 17:21 Immature Gran # (Auto) 0.11 K/uL (0.01-0.20) 08/14/24 17:21 PT 10.6 Seconds (9.0-12.0) 08/14/24 17:21 INR 1.0 (0.9-1.1) 08/14/24 17:21 APTT 28 Seconds (21-31) 08/14/24 17:21 PTT Ratio 1.0 08/14/24 17:21 Sodium 138 mmol/L (136-145) 08/14/24 17:21 Potassium 3.9 mmol/L (3.5-5.1) 08/14/24 17:21 Chloride 105 mmol/L (98-107) 08/14/24 17:21 Carbon Dioxide 24 mmol/L (21-32) 08/14/24 17:21 Anion Gap 9 (3-11) 08/14/24 17:21 BUN 18 mg/dl (6-23) 08/14/24 17:21 Creatinine 1.03 mg/dl (0.6-1.4) 08/14/24 17:21 Est Cr Clr Drug Dosing 126.9 ml/min 08/14/24 17:21 Est GFR ( Amer) 95.0 ml/min 08/14/24 17:21 Est GFR (Non-Af Amer) 82.0 ml/min 08/14/24 17:21 BUN/Creatinine Ratio 17.5 (10-20) 08/14/24 17:21 Glucose 97 mg/dl (70-99(Fasting)) 08/14/24 17:21 Calcium 9.8 mg/dl (8.6-10.3) 08/14/24 17:21 Total Bilirubin 0.7 mg/dl (0.2-1.0) 08/14/24 17:21 AST 17 U/L (13-39) 08/14/24 17:21 ALT 14 U/L (7-52) 08/14/24 17:21 Alkaline Phosphatase 97 U/L (34-104) 08/14/24 17:21 Troponin I High Sens 4.0 pg/ml (0-20) 08/14/24 17:21 Total Protein 8.1 gm/dl (6.0-8.3) 08/14/24 17:21 Albumin 4.6 gm/dl (3.4-5.0) 08/14/24 17:21 Globulin 3.5 gm/dl (2.5-4.0) 08/14/24 17:21 Albumin/Globulin Ratio 1.3 (0.9-2) 08/14/24 17:21 Lipase 30 U/L (11-82) 08/14/24 17:21 Impressions Chest X-Ray 08/14/24 17:22 XR chest 1V portable CLINICAL HISTORY: Chest pain, nonspecific TECHNIQUE: Single frontal radiograph of the chest was obtained. Comparison: Comparison is made to chest radiograph 12/18/2023 FINDINGS: Exam is limited by underpenetration. Images The cardiomediastinal silhouette is normal. The lungs are clear. No evidence of pleural effusion or pneumothorax. IMPRESSION: No acute chest disease. ACT 112: Negative or not required by law. Electronically signed by: Dennis Petty M.D. 08/14/2024 6:32 PM Diagnostic Findings EKG shows a sinus rhythm and no acute changes Code Status & VTE Plan Code Status Full Code VTE Prophylaxis Plan VTE Prophylaxis will be ordered: Yes (5) Hypertension Hypertension type: essential hypertension Qualified Code(s): I10 - Essential (primary) hypertension (6) GERD (gastroesophageal reflux disease) Esophagitis presence: without esophagitis Qualified Code(s): K21.9 - Gastro- esophageal reflux disease without esophagitis
[2024-08-14 20:12] VITALS: RESP 18
[2024-08-14] MEDS ORDERED: CARBOHYDRATES FOR HYPOGLYCEMIA PO PRN (22:10)
[2024-08-14] MEDS ORDERED: ONDANSETRON INJ 2 MG/ML 2 ML VIAL IV PRN (22:10)
[2024-08-14] MEDS ORDERED: GLUCOSE 40% GEL 15 GM TUBE PO PRN (22:10)
[2024-08-14] MEDS ORDERED: POLYETHYLENE (MIRALAX) 17 GM PACK PO PRN (22:10)
[2024-08-14] MEDS ORDERED: GLUCOSE 10 TAB/TUBE PO PRN (22:10)
[2024-08-14] MEDS ORDERED: GLUCAGON FOR INJ 1 MG VIAL SQ PRN (22:10)
[2024-08-14] MEDS ORDERED: LORazepam 1 MG TAB PO PRN (22:10)
[2024-08-14] MEDS ORDERED: DEXTROSE 50% 50 ML SYRINGE IV PRN (22:10)
[2024-08-14] MEDS: CETIRIZINE HCL 10 MG TABLET PO SCH (23:31)
[2024-08-14] MEDS: MAGNESIUM OXIDE 400 MG TAB PO SCH (23:31)
[2024-08-14] MEDS: AMITRIPTYLINE HCL 10 MG TAB PO SCH (23:31)
[2024-08-15] MEDS: INSULIN ASPART PER UNIT CHARGE SC SCH (00:02)
[2024-08-15 06:17] LABS: Hematocrit (blood only) 41.6 % (42.0-52.0); Hemoglobin 14.2 g/dl (14.0-18.0); Mean Corpuscular Hemoglobin 29.9 pg (25.0-34.0); Mean Corpuscular Hgb Conc 34.1 g/dL (32.0-36.0); Mean Corpuscular Volume 87.6 fL (80.0-100.0); Mean Platelet Volume 9.7 fL (9.4-12.4); Platelet Count 186 K/uL (130-400); RDW Coefficient of Variation 13.6 % (11.5-14.5); RDW Standard Deviation 43.6 fL (36.4-46.3); Red Blood Count 4.75 M/uL (4.70-6.10); White Blood Count 6.84 K/ul (4.8-10.8)
[2024-08-15 06:20] LABS: BUN Creatinine Ratio 19.1 (10-20); Calcium 8.8 mg/dl (8.6-10.3); Creatinine Clr Calc Pharmacy 139.6 ml/min; Est GFR (African American) 106.1 ml/min; Est GFR (Non-African American) 91.6 ml/min; Potassium 3.8 mmol/L (3.5-5.1)
[2024-08-15 07:20] LABS: Estimated Average Glucose 120 mg/dl; Hemoglobin A1C 5.8 % (4.5-5.6)
--- NOTE | 2024-08-15 09:32 | Cardiology Consultation ---
Date of Consultation August 15, 2024 Assessment & Plan (1) Chest pain, exertional: (2) History of CAD (coronary artery disease): Plan 1. Chest pain: Quite atypical and that the symptoms themselves are quite fleeting. This seems to be a mild pleuritic component and it can occur at rest. There are days where he has no symptoms at all. However, there is an exertional component and would seem reasonable to perform some provocative testing. Given his history we can perform exercise echocardiography. In the absence of concerning findings he can likely be discharged today on his current medical regimen. 2. Coronary disease: Remote intervention to the LAD. Only mild nonobstructive disease in the remaining vessels. Symptoms noted above are atypical. Will continue aggressive secondary prevention with his clopidogrel, high-dose rosuvastatin and Zetia. History of Present Illness Reason for Consultation: Chest pain Requesting Physician: Justice Attending Physician: Darrin Jennings, DO History of Present Illness The patient is a 53-year-old gentleman with a history of coronary artery disease having previously undergone percutaneous intervention to the LAD in 2016. According to the patient that evaluation was triggered by symptoms present on exertion. He recalls feeling in "odd sensation" in the precordial area with activity. He underwent coronary angiography and was discovered to have a proximal 99% LAD lesion with thrombus. ESTEFANÍA II flow. Some nonobstructive disease in the remaining vessels. He symptoms on well since that time. He did undergo stress echocardiography in 2021 which was negative for ischemia. He is has preserved LV systolic function. The patient states that over the past 1 to 2 weeks he has been experiencing symptoms of a "poking" pressure type sensation in the right precordium. This is fairly fleeting in nature. He describes it lasting seconds. He feels there is an exertional component and often notices it when he is "fooling around with his ". It can occur at rest. There appears to be some mild pleuritic component to it. It does not appear to be positional. There can be days where he has no symptoms despite activity. He does not describe it is similar to symptoms he had in 2016. He otherwise seems to be an active individual. He does not exercise regularly but is able to ascend and descend stairs. He can carry groceries. He did not report any exertional dyspnea. No orthopnea. No paroxysmal nocturnal dyspnea. No lower extremity edema. No sense of palpitation. No dizziness or lightheadedness. Allergies Allergy/AdvReac Type Severity Reaction Status Date / Time No Known Allergies Allergy Verified 04/18/24 15:47 Home Medications Medication Instructions Recorded Confirmed Type pantoprazole 40 mg tablet,delayed 40 mg PO DAILY #30 tabs 10/04/19 08/14/24 Rx release irbesartan 75 mg tablet 75 mg PO DAILY 09/21/21 08/14/24 History pioglitazone 30 mg tablet (Actos) 30 mg PO DAILY 09/21/21 08/14/24 History acetaminophen 500 mg tablet 1,000 mg PO Q6H PRN Pain 05/23/23 08/14/24 History (Tylenol Extra Strength) amitriptyline 10 mg tablet 10 mg PO HS 05/23/23 08/14/24 History ezetimibe 10 mg tablet 10 mg PO QAM 05/23/23 08/14/24 History levocetirizine 5 mg tablet 5 mg PO QPM 05/23/23 08/14/24 History lorazepam 1 mg tablet 1 mg PO DAILY PRN Anxiety 05/23/23 08/14/24 History magnesium oxide 400 mg (241.3 mg 400 mg PO HS 05/23/23 08/14/24 History magnesium) tablet sertraline 25 mg tablet 25 mg PO QAM 05/23/23 08/14/24 History rosuvastatin 40 mg tablet 40 mg PO DAILY #90 tabs 03/13/24 08/14/24 Rx clopidogrel 75 mg tablet 75 mg PO DAILY #90 tabs 04/18/24 08/14/24 Rx Patient History Medical History Anxiety state, unspecified Diverticulosis Elevated fasting glucose Internal hemorrhoids Chest pain Palpitations Surgical History H/O colonoscopy (08/2017) History of esophagogastroduodenoscopy (EGD) (07/2017) Stented coronary artery Family History Mother Crohn's disease Denies family history of Colorectal cancer Ulcerative colitis Social History Smoking Status: Current every day smoker Tobacco Type: Cigarettes Cigarettes Per Day: 1 pack; Second Hand Exposure: No; Do You Dip or Chew Tobacco: No; Tobacco Cessation Education Requested by Patient: No Hx Alcohol Use: Yes Alcohol type: beer Hx Substance Use: No Preferred Language: Hebrew Communication Ability: Effective Visual Impairment: No Limitations Hearing Ability: Hard of Hearing Slag Skimmer Required: No Beliefs That Will Affect Care: None marital status: Current Living Situation: Spouse current occupational status: employed 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 Mood and affect appeared normal. He answered all questions appropriately. HEENT: Pupils are equal and reactive to light and accommodation. Extraocular movements are intact. The sclerae are anicteric. Neuro: Cranial nerves intact Lungs: Clear to auscultation bilaterally. He has good air movement without use of accessory muscles. No rales wheezes or rhonchi. Cardiac: Heart demonstrates a regular rate and rhythm. Normal S1 and S2. No murmurs on examination. Pulses: The patient has palpable radial pulses bilaterally that are equal in intensity Extremities: There was no evidence of hypoperfusion. There is no cyanosis or clubbing. There is no edema. Skin: I did not appreciate any rashes on examination today. Results & Data Vital Signs (Past 12 Hours) Vital Signs Temp Pulse Pulse Resp BP Pulse Ox O2 Del Method 08/15/24 07:56 36.6 C 73 18 144/79 H 95 Room Air 08/15/24 07:00 79 08/15/24 06:05 36.7 C 71 18 125/85 94 Room Air 08/14/24 22:13 36.5 C 78 18 145/79 H 96 Room Air 08/14/24 22:10 77 08/14/24 22:05 36.6 C 79 18 141/97 H 97 Room Air 08/14/24 22:00 Room Air Laboratory Results Abnormal Lab Results 08/14/24 08/14/24 08/14/24 17:21 22:07 23:26 WBC 8.99 RBC 5.12 Hgb 15.4 Hct 44.5 MCV 86.9 MCH 30.1 MCHC 34.6 RDW Std Deviation 43.7 RDW Coeff of Miguel 13.6 Plt Count 227 MPV 9.9 Immature Gran % (Auto) 1.2 Neut % (Auto) 58.8 Lymph % (Auto) 32.3 Gladwin % (Auto) 6.9 Eos % (Auto) 0.7 Baso % (Auto) 0.1 Neut # (Auto) 5.29 Lymph # (Auto) 2.90 Gladwin # (Auto) 0.62 H Eos # (Auto) 0.06 Baso # (Auto) 0.01 Immature Gran # (Auto) 0.11 PT 10.6 INR 1.0 APTT 28 PTT Ratio 1.0 Sodium 138 Potassium 3.9 Chloride 105 Carbon Dioxide 24 Anion Gap 9 BUN 18 Creatinine 1.03 Est Cr Clr Drug Dosing 126.9 Est GFR ( Amer) 95.0 Est GFR (Non-Af Amer) 82.0 BUN/Creatinine Ratio 17.5 Glucose 97 POC Glucose 121 H Estimat Average Glucose Hemoglobin A1c Calcium 9.8 Total Bilirubin 0.7 AST 17 ALT 14 Alkaline Phosphatase 97 Troponin I High Sens 4.0 4.3 Total Protein 8.1 Albumin 4.6 Globulin 3.5 Albumin/Globulin Ratio 1.3 Lipase 30 08/14/24 08/15/24 08/15/24 23:52 05:32 06:04 WBC 6.84 RBC 4.75 Hgb 14.2 Hct 41.6 L MCV 87.6 MCH 29.9 MCHC 34.1 RDW Std Deviation 43.6 RDW Coeff of Miguel 13.6 Plt Count 186 MPV 9.7 Immature Gran % (Auto) Neut % (Auto) Lymph % (Auto) Gladwin % (Auto) Eos % (Auto) Baso % (Auto) Neut # (Auto) Lymph # (Auto) Gladwin # (Auto) Eos # (Auto) Baso # (Auto) Immature Gran # (Auto) PT INR APTT PTT Ratio Sodium 139 Potassium 3.8 Chloride 107 Carbon Dioxide 26 Anion Gap 6 BUN 18 Creatinine 0.94 Est Cr Clr Drug Dosing 139.6 Est GFR ( Amer) 106.1 Est GFR (Non-Af Amer) 91.6 BUN/Creatinine Ratio 19.1 Glucose 96 POC Glucose 119 H 105 H Estimat Average Glucose 120 Hemoglobin A1c 5.8 H Calcium 8.8 Total Bilirubin AST ALT Alkaline Phosphatase Troponin I High Sens 4.4 Total Protein Albumin Globulin Albumin/Globulin Ratio Lipase Diagnostic Findings Exercise echocardiogram 09/10/2022: No symptoms. Normal LV function. No valvular abnormalities. No ischemia. Chest x-ray obtained at the time admission did not reveal any acute cardiopulmonary findings. ECG Additional Comments: EKG obtained today demonstrated normal sinus rhythm. Normal EKG. PG Care Time/CCT Total # of Minutes Spent Total Time Spent with Patient: Total time spent is greater than 50% in coordination of care (as documented) at patient's floor/unit and/or counseling patient: Coding Level of Care Code 57677 IN/OBS CONSULT LVL 4,60M Diagnoses Chest pain, exertional R07.9 History of CAD (coronary artery disease) Z86.79
[2024-08-15] MEDS: ACETAMINOPHEN 325 MG TAB PO PRN (09:35)
[2024-08-15] MEDS: ROSUVASTATIN CALCIUM 20 MG TAB PO SCH (09:36)
[2024-08-15] MEDS: EZETIMIBE 10 MG TAB PO SCH (09:36)
[2024-08-15] MEDS: PANTOprazole 40 MG TAB PO SCH (09:36)
[2024-08-15] MEDS: CLOPIDOGREL BISULFATE 75 MG TAB PO SCH (09:36)
[2024-08-15] MEDS: LOSARTAN POTASSIUM 25 MG TAB PO SCH (09:37)
[2024-08-15] MEDS: SERTRALINE HCL 50 MG TABLET PO SCH (09:37)
--- OUTSIDE RECORDS SUMMARY | 2024-08-15 11:28 | External Medical Summary | Summary of Care ---
Author Name Unknown Organization [facility] Address [address] [facility] [place] [address] Phone [phone] Care Team Providers Care Washer Operator Name Role Phone Tatyana Holcomb MD Primary Care Provide r Reason for Visit * Reason Onset Date Comments Appointment 07/04/2024 appointment Encounter Details Date Type Department Care Team (Late st Contact Info) Description 07/04/2024 [facility] [address] [place] [phone] Mikala Leonard DO [address] [place] [address] Appointment (appointment) Allergies No known active allergiesdocumented as of this encounter (statuses as of 07/04/2024) Medications Medication Sig Dispensed Refills Start Date End Date Status clopidogrel (PLAVIX) 75 MG Tablet Take 1 Tablet by mouth in the morning. 02/20/2020 Active rosuvastatin (CRESTOR) 40 MG Tablet Take 1 Tablet by mouth in the morning. 01/18/2020 Active Riboflavin 400 MG Oral TabletIndications:Freq uent headaches Take by mouth 1 Tablet before bedtime. 90 Tablet 3 07/28/2022 Active Magnesium Oxide 400 (240 Mg) MG Oral TabletIndications:Freq uent headaches Take by mouth 1 Tablet before bedtime. 90 Tablet 3 07/28/2022 Active Fluticasone Propionate 50 MCG/ACT Nasal SuspensionIndications: Dysfunction of both eustachian tubes Administer 2 Sprays into each nostril in the morning. 16 g 3 01/31/2023 Active CPAP every night at bedtime. Active Sertraline HCl 25 MG Oral Tablet (Zoloft)Indications:Ge neralized anxiety disorder Take 1 Tablet by mouth in the morning. 30 Tablet 11 08/19/2023 Active Levocetirizine Dihydrochloride 5 MG Oral TabletIndications:Pres sure sensation in both ears Take 1 Tablet by mouth every evening. 90 Tablet 1 02/15/2024 Active LORazepam 1 MG Oral Tablet (Ativan)Indications:Ge neralized anxiety disorder,Panic attack Take 1 Tablet by mouth daily as needed for Anxiety. 30 Tablet 05/03/2024 Active Amitriptyline HCl 10 MG Oral Tablet (Elavil)Indications:Fr equent headaches Take 1 Tablet by mouth at bedtime. 90 Tablet 1 05/25/2024 Active Ezetimibe 10 MG Oral Tablet (Zetia)Indications:Cor onary artery disease involving [place] coronary artery of [place] heart without angina pectoris Take 1 Tablet by mouth in the morning. 90 Tablet 1 05/25/2024 Active Pantoprazole Sodium 40 MG Oral Tablet Delayed Release (Protonix)Indications: Gastro-esophageal reflux disease with esophagitis, without bleeding Take 1 Tablet by mouth in the morning. 90 Tablet 1 06/11/2024 Active Pioglitazone HCl 30 MG Oral Tablet (Actos)Indications:DM type 2, goal HbA1c < 7% (HCC) Take 1 Tablet by mouth in the morning. 90 Tablet 1 06/22/2024 Active Irbesartan 75 MG Oral Tablet (Avapro)Indications:DM type 2, goal HbA1c < 7% (HCC),Coronary artery disease involving [place] coronary artery of [place] heart without angina pectoris,Primary hypertension Take 1 Tablet by mouth in the morning. 90 Tablet 1 06/22/2024 Active documented as of this encounter (statuses as of 07/04/2024) Active Problems Problem Noted Date Diagnosed Date Prediabetes 05/21/2024 Overview: Per Prediabetes protocol Panic attack 05/03/2024 Morbid obesity with BMI of 40.0-44.9, adult 05/14 Overview: 328 Degenerative lumbar disc 05/23/2023 Overview: [facility] broad based bulging disc L4-5 not impinging on spinal cord, had trigger point injections Tobacco use disorder 08/16/2022 Hearing loss, sensorineural, high frequency, emperatriz ateral 06/29/2022 Dysfunction of both eustachian tubes 04/26/2022 Primary hypertension 04/14/2020 Dyslipidemia, goal LDL below 70 04/14/2020 Generalized anxiety disorder Coronary artery disease invo lving [place] coronary artery of [place] heart without angina pectoris Overview: stent 2017 Gastroesophageal reflux dise ase with esophagitis without hemorrhage documented as of this encounter (statuses as of 07/04/2024) Resolved Problems Problem Noted Date Diagnosed Date Resolved Date BMI 39.0-39.9,adult 04/26/2022 10/28/20 22 Overview: 320 DM type 2, goal HbA1c < 7% 07/30/2021 0 05/03/2024 Overview: [facility] ER hgba1c 7.5 BMI 40.0-44.9, adult 023 documented as of this encounter (statuses as of 07/04/2024) Immunizations No known immunizationsdocumented as of this encounter Social History Tobacco Use Types Packs/Day Years Used Date Smoking Tobacco: Every Day Cigarettes 1 42.6 Started: 1982 Smokeless Tobacco: Never Alcohol Use Standard Drinks/Week Comments Yes 0 (1 standard drink = 0.6 oz pur e alcohol) occasionally 2x a year PHQ-2 Answer Date Recorded PHQ Adult Total Score 0 01/24/2024 Hunger Vital Sign Answer Date Recorded Within the past 12 months, y ou worried that your food would run out before you got the money to buy more. Never true 01/24/20 24 Within the past 12 months, t he food you bought just didn't last and you didn't have money to get more. Never true 01/24/2024 Childcare Answer Date Recorded Do you feel overwhelmed with taking care of a child, family member or friend? No 01/24/2024 Does your family need help f inding childcare? (Household - for ages 0-17 years) Not on file 01/24/2024 Clothing Answer Date Recorded Have you been unable to get clothing when it was really needed? No 01/24/2024 Is your family able to get c lothes or diapers when needed? (Household - for ages 0-17 years) Not on file 01/24/2024 Personal Safety Answer Date Recorded Do you feel unsafe or have concerns for your saf ety? No 01/24/2024 Do you have concerns for you r family's safety? (Household - for ages 0-17 years) Not on file 01/24/2024 Utilities Answer Date Recorded Do you have trouble paying y our heating, water, or electric bill? No 01/24/2024 Is your family able to pay t he heat, water, or electric bill? (Household - for ages 0-17 years) Not on file 01/24/2024 Does your family have access to good internet? (Household - for ages 0-17 years) Not on file 01/24/2024 Employment Status Answer Date Recorded Are you unemployed or without regular income? No 01/24/2024 Does the household have a re lar source of income? (Household - for ages 0-17 years) Not on file 01/24/2024 Social Connections Answer Date Recorded How often do you feel lonely or isolated from th ose around you? Never 01/24/2024 Financial Resource Strain Answer Date R ecorded Do you have any trouble payi ng for your medications, or do you think you might in the future? No 01/24/2024 Does your family have troubl e paying for medicine? (Household - for ages 0-17 years) Not on file 01/24/2024 Transportation Needs Answer Date Record ed READ ONLY Do you have troubl e getting a ride to medical visits or work? Never True 01/24/2024 Does your family have a hard time getting a ride to doctors visits? (Household - for ages 0-17 years) Not on file 01/24/2024 Has lack of transportation k ept you from medical appointments, meetings, work, or from getting things needed for daily living? Check all that apply. (Adult - for ages 18 years and over) Not on file 01/24/2024 Do you (or your family) have trouble finding or paying for a ride (transportation)? (Household - for ages 0-17 years) Not on file 01/24/2024 Housing Stability Answer Date Recorded Do you currently live in a s helter or have no steady place to sleep at night? No 01/24/2024 READ ONLY Do you think you a re at risk of becoming homeless? No 01/24/2024 Does your family worry about paying for your home or becoming homeless? (Household - for ages 0-17 years) Not on file 0 01/24/2024 Are you homeless or worried that you might be in the future? (Adult - for ages 18 years and over) Not on file Are you (or your family) kandis eless or worried that you might be in the future? (Household - for ages 0-17 years) Not on file Food Insecurity Answer Date Recorded Do you need food for this week? No 01/24/2024 Are you able to get enough f ood for your family? (Household - for ages 0-17 years) Not on file 01/24/2024 Does your family need food t his week? (Household - for ages 0-17 years) Not on file 01/24/2024 Do you always have enough fo od for your family? (Household - for ages 0-17 years) Not on file 01/24/2024 Sex and Gender Information Value Date Recorded Sex Assigned at Male 01/10/2023 12:10 PM EST Gender Identity Male 01/10/2023 12:10 PM EST Sexual Orientation Straight 01/10/2023 12 :10 PM EST Job Start Date Occupation Industry Not on file Not on file Not on file documented as of this encounter Miscellaneous Notes * Telephone Encounter - Lucina February Kirk, GLORIA - 07/04/2024 3:35 PM EDT Called pt, no answer. LM to return call to schedule return appointment with Dr Leonard at . Ok to scheduled first available and add to wait list. * Telephone Encounter - Tammy Orona LPN - 07/04/2024 9:53 AM EDT [facility] sent over order for CPAP supplies. However, patients last office visit was 07/22/23. Patient needs updated office visit. Thank you. documented in this encounter Plan of Treatment Upcoming Encounters Date Type Department Care Team (Late st Contact Info) Description 12/25/2024 7:20 AM EST Office Visit Family Medicine [address] [place] [phone] Tatyana Holcomb MD [address] [place] [address] [place] [address] Health Maintenance Due Date Last Done Comments DISCUSS TOBACCO CESSATION (REFER TO SMARTSET #7018) 1969 Pneumococcal Vaccine: Pediatrics (0 to 5 Years) and At-Risk Patients (6 to 64 Years) (1 of 2 - PCV) 1975 HIV Screening 1984 Hepatitis C Screening 1987 DTaP,Tdap,and Td Vaccines (1 - Tdap) 1988 Hepatitis B Vaccine (1 of 3 - 19+ 3-dose series) 1988 Cologuard 2014 Fecal Occult Blood Test 2014 Sigmoidoscopy 2014 Zoster Vaccines (1 of 2) 2019 COVID-19 Vaccine (1 - 2022-24 season) 2023 Influenza Vaccine (FLU shot) (#1) 2024 GFR 12/28/2024 12/28/2023, 02/05/2024, 04/28/2023, Additional history exists Depression Screening 01/23/2025 01/24/2024 HbA1c 05/03/2025 05/03/2024, 10/14, 04/28/2023, Additional history exists Albumin/Creatinine Ratio 05/03/2027 024, 05/04/2023, 04/19/2022 Colonoscopy 08/23/2027 08/23/2017 Colorectal Cancer Screening 08/23/2027 Lung Cancer Screening Completed 08/04/2022 Diabetic Eye Exam Discontinued 10/31/2023, , 07/29/2021 Diabetic Foot Exam Discontinued 10/31/2023, 1 12/29/2021, 10/22/2021 HPV (Gardasil) Vaccine Aged Out No lo nger eligible based on patient's age to complete this topic MENINGOCOCCAL (MENACTRA/MENVEO) Aged Out No longer eligible based on patient's age to complete this topic documented as of this encounter Medical Devices Implanted Type Area Employment Specialist Device Identifier Shelf Expiration Date Model / Serial / Lot Lens Intraoc 19.5 - [id number] - [id number] Implanted:Qty: 1 on 12/14/2021 by Randell Franklin MD at OR [facility] Right: Eye [employer] 08/13/2026 [id number] / [id number] / [id number] Lens Intraoc 19.0 - [id number] - [id number] Implanted:Qty: 1 on 01/05/2022 by Randell Franklin MD at OR [facility] Left: Eye [employer] 06/13/2026 [id number] / [id number] / [id number] documented as of this encounter Care Teams Washer Operator Relationship Specialty Start Date End Date Tatyana Holcomb MD [address] [place] [address] [place] [id number] PCP - General Family Medicine 02/03/24 documented as of this encounter
--- OUTSIDE RECORDS SUMMARY | 2024-08-15 11:28 | External Medical Summary | Summary of Care ---
Author Name Unknown Organization [facility] Address [address] [facility] [place] [address] Phone [phone] Care Team Providers Care Insurance Premium Auditor Name Role Phone Tatyana Holcomb MD Primary Care Provide r Reason for Visit * Reason Onset Date Comments Appointment 07/04/2024 appointment Encounter Details Date Type Department Care Team (Late st Contact Info) Description 07/04/2024 [facility] [address] [place] [phone] Mikala Leonard DO [address] [place] [phone] Appointment (appointment) Allergies No known active allergiesdocumented as of this encounter (statuses as of 07/05/2024) Medications Medication Sig Dispensed Refills Start Date [...] Oral Tablet (Zetia)Indications:Cor onary artery disease involving [place] coronary artery of [place] heart without angina pectoris Take 1 Tablet [...] HbA1c < 7% (HCC),Coronary artery disease involving [place] coronary artery of [place] heart without angina pectoris,Primary hypertension Take 1 Tablet by mouth in the morning. 90 Tablet 1 06/22/2024 Active documented as of this encounter (statuses as of 07/05/2024) Active Problems Problem Noted Date Diagnosed Date Prediabetes 05/21/2024 Overview: Per Prediabetes protocol Panic attack 05/03/2024 Morbid obesity with BMI of 40.0-44.9, adult 05/14 Overview: 328 Degenerative lumbar disc 05/23/2023 Overview: [facility] broad based bulging disc L4-5 not impinging on spinal cord, had trigger point injections Tobacco use disorder 08/16/2022 Hearing loss, sensorineural, high frequency, emperatriz ateral 06/29/2022 Dysfunction of both eustachian tubes 04/26/2022 Primary hypertension 04/14/2020 Dyslipidemia, goal LDL below 70 04/14/2020 Generalized anxiety disorder Coronary artery disease invo lving [place] coronary artery of [place] heart without angina pectoris Overview: stent 2017 Gastroesophageal reflux dise ase with esophagitis without hemorrhage documented as of this encounter (statuses as of 07/05/2024) Resolved Problems Problem Noted Date Diagnosed Date Resolved Date BMI 39.0-39.9,adult 04/26/2022 10/28/20 Overview: 320 DM type 2, goal HbA1c < 7% 07/30/2021 0 05/03/2024 Overview: [facility] ER hgba1c 7.5 BMI 40.0-44.9, adult 023 documented as of this encounter (statuses as of 07/05/2024) Immunizations No known immunizationsdocumented as of this [...] 7:20 AM EST Office Visit Family Medicine [address] [place] [phone] Tatyana Holcomb MD [address] [place] [address] [place] [phone] 02/19/2025 3:40 PM EDT Office Visit Sleep Disorders Ctr [facility] [address] [place] [phone] Mikala Leonard DO [address] [place] [address] Health Maintenance Due Date Last Done Comments DISCUSS TOBACCO CESSATION (REFER TO SMARTSET #[id number]) 1969 Pneumococcal Vaccine: Pediatrics (0 to 5 [...] of 2) 2019 COVID-19 Vaccine (1 - 2022- season) 2023 Influenza Vaccine (FLU shot) (#1) 2024 GFR 12/28/2024 12/28/2023, 02/0 05/2024, 04/28/2023, Additional history exists Depression Screening 01/23/2025 [...] this encounter Medical Devices Implanted Type Area Saddle Stitcher Device Identifier Shelf Expiration Date Model / Serial / Lot Lens Intraoc 19.5 - [id number] - [id number] Implanted:Qty: 1 on 12/14/2021 by Randell Franklin MD at OR [facility] Right: Eye [employer] 08/13/2026 [id number] / [id number] / [id number] Lens Intraoc 19.0 - [id number] - [id number] Implanted:Qty: 1 on 01/05/2022 by Randell Franklin MD at [facility] Left: Eye [employer] 06/13/2026 [id number] / [id number] / [id number] documented as of this encounter Care Teams Insurance Premium Auditor Relationship Specialty Start Date End Date Tatyana Holcomb MD [address] [place] [address] [place] [address] PCP - General Family Medicine 02/03/24 documented as of this encounter
--- OUTSIDE RECORDS SUMMARY | 2024-08-15 11:28 | External Medical Summary | Summary of Care ---
Author Name Unknown Organization [facility] Address [address] [facility] [place] [address] Phone [phone] Care Team Providers Care Pathology Laboratory Aide Name Role Phone Tatyana Holcomb MD Primary Care Provide r Reason for Visit * Reason Comments Acute Encounter Details Date Type Department Care Team (Late st Contact Info) Description 06/11/2024 12:20 PM EDT Office Visit Family Medicine [address] [phone] Oj Sarah MD [address] [place] [address] [place] [phone] Strep sore throat*; Gastro-esophageal reflux disease with esophagitis, without bleeding; Sore throat (viral) Allergies No known active allergiesdocumented as of this encounter (statuses as of 06/11/2024) Medications Medication Sig Dispensed Refills Start Date End Date Status clopidogrel (PLAVIX) 75 MG Tablet Take 1 Tablet by mouth in the morning. 02/20/2020 Active rosuvastatin (CRESTOR) 40 MG Tablet Take 1 Tablet by mouth in the morning. 01/18/2020 Active Riboflavin 400 MG Oral TabletIndications:Fr equent headaches Take by mouth 1 Tablet before bedtime. 90 Tablet 3 07/28/2022 Active Magnesium Oxide 400 (240 Mg) MG Oral TabletIndications:Fr equent headaches Take by mouth 1 Tablet before bedtime. 90 Tablet 3 07/28/2022 Active Fluticasone Propionate 50 MCG/ACT Nasal SuspensionIndication s:Dysfunction of both eustachian tubes Administer 2 Sprays into each nostril in the morning. 16 g 3 01/31/2023 Active CPAP every night at bedtime. Active Sertraline HCl 25 MG Oral Tablet (Zoloft)Indications: Generalized anxiety disorder Take 1 Tablet by mouth in the morning. 30 Tablet 11 08/19/2023 Active Irbesartan 75 MG Oral Tablet (Avapro)Indications: DM type 2, goal HbA1c < 7% ([facility]),Coronary artery disease involving [place] coronary artery of [place] heart without angina pectoris,Primary hypertension Take 1 Tablet by mouth in the morning. 90 Tablet 1 10/31/2023 Active Pioglitazone HCl 30 MG Oral Tablet (Actos)Indications:D M type 2, goal HbA1c < 7% ([facility]) Take 1 Tablet by mouth in the morning. 90 Tablet 1 10/31/2023 Active Levocetirizine Dihydrochloride 5 MG Oral TabletIndications:Pr essure sensation in both ears Take 1 Tablet by mouth every evening. 90 Tablet 1 02/15/2024 Active LORazepam 1 MG Oral Tablet (Ativan)Indications: Generalized anxiety disorder,Panic attack Take 1 Tablet by mouth daily as needed for Anxiety. 30 Tablet 05/03/2024 Active Amitriptyline HCl 10 MG Oral Tablet (Elavil)Indications: Frequent headaches Take 1 Tablet by mouth at bedtime. 90 Tablet 1 05/25/2024 Active Ezetimibe 10 MG Oral Tablet (Zetia)Indications:C oronary artery disease involving [place] coronary artery of [place] heart without angina pectoris Take 1 Tablet by mouth in the morning. 90 Tablet 1 05/25/2024 Active Pantoprazole Sodium 40 MG Oral Tablet Delayed Release (Protonix)Indication s:Gastro-esophageal reflux disease with esophagitis, without bleeding Take 1 Tablet by mouth in the morning. 90 Tablet 1 06/11/2024 Active Penicillin V Potassium 500 MG Oral Tablet (Veetids)Indications :Strep sore throat Take 1 Tablet by mouth in the morning and 1 Tablet at noon and 1 Tablet before bedtime. Do all this for 10 days. 30 Tablet 06/11/2024 Active Pantoprazole Sodium 40 MG Oral Tablet Delayed Release (Protonix)Indication s:Gastro-esophageal reflux disease with esophagitis, without bleeding Take 1 Tablet by mouth in the morning. 90 Tablet 1 10/31/2023 4 Discontinue d(Refill) documented as of this encounter (statuses as of 06/11/2024) Active Problems Problem Noted Date Diagnosed Date Prediabetes 05/21/2024 Overview: Per Prediabetes protocol Panic attack 05/03/2024 Morbid obesity with BMI of 40.0-44.9, adult 05/14 Overview: 328 Degenerative lumbar disc 05/23/2023 Overview: [facility] broad based bulging disc L4-5 not impinging on spinal cord, had trigger point injections Tobacco use disorder 08/16/2022 Hearing loss, sensorineural, high frequency, emperatriz ateral 06/29/2022 Dysfunction of both eustachian tubes 04/26/2022 Primary hypertension 04/14/2020 Dyslipidemia, goal LDL below 70 04/14/2020 Generalized anxiety disorder Coronary artery disease invo lving guid[place] coronary artery of guid[place] heart without angina pectoris Overview: stent 2017 Gastroesophageal reflux dise ase with esophagitis without hemorrhage documented as of this encounter (statuses as of 06/11/2024) Resolved Problems Problem Noted Date Diagnosed Date Resolved Date BMI 39.0-39.9,adult 04/26/2022 10/28/20 22 Overview: 320 DM type 2, goal HbA1c < 7% 07/30/2021 0 05/03/2024 Overview: [facility] ER hgba1c 7.5 BMI 40.0-44.9, adult 023 documented as of this encounter (statuses as of 06/11/2024) Immunizations No known immunizationsdocumented as of this [...] 01/24/2024 Does the household have a re gular source of income? (Household - for ages [...] on file documented as of this encounter Last Filed Vital Signs Vital Sign Reading Time Taken Comments Blood Pressure 122/72 06/11/2024 12:17 PM EDT Pulse 116 06/11/2024 12:17 PM EDT Temperature 38.1 C (100.5 F) 06/11/2024 12:17 PM EDT Respiratory Rate 18 06/11/2024 12:17 PM EDT Oxygen Saturation 94% 06/11/2024 12:17 PM EDT Inhaled Oxygen Concentration - - Weight 155 kg (341 lb 11.2 oz) 06/11/2024 12:17 PM EDT Height - - Body Mass Index 43.85 02/03/2024 7:20 AM EDT documented in this encounter Progress Notes * Oj Sarah MD - 06/11/2024 12:21 PM EDT Nursing Notes: Ayse Apodaca LPN 06/11/24 1221 Signed Pt in today for fever, chills, headache, sore throat. Just started this morning No cough or SOB Did take 1000 mg Tylenol around 9 He woke up at 3 with sore throat, fever, chills. Denies nausea, vomiting, or diarrhea. Patient Active Problem List Diagnosis Generalized anxiety disorder Coronary artery disease involving [place] coronary artery of guid[place] heart without angina pectoris Gastroesophageal reflux disease with esophagitis without hemorrhage Primary hypertension Dyslipidemia, goal LDL below 70 Dysfunction of both eustachian tubes Hearing loss, sensorineural, high frequency, bilateral Tobacco use disorder Morbid obesity with BMI of 40.0-44.9, adult ([facility]) Degenerative lumbar disc Panic attack Prediabetes Past Medical History: Diagnosis Date BMI 40.0-44.9, adult ([facility]) Coronary artery disease stent 2017 Degenerative lumbar disc 05/23/2023 [facility] broad based bulging disc L4-5 not impinging on spinal cord, had trigger point injections DM type 2, goal HbA1c < 7% ([facility]) 07/30/2021 [facility] ER hgba1c 7.5 Dysfunction of both eustachian tubes 04/26/2022 Generalized anxiety disorder GERD with esophagitis Hearing loss, sensorineural, high frequency, bilateral 06/29/2022 Male erectile disorder Morbid obesity with BMI of 40.0-44.9, adult ([facility]) 05/31/2023 328 Primary hypertension Sleep apnea, obstructive Past Surgical History: Procedure Laterality Date CARDIAC CATH-CARDIOLOGY ONLY 2016 Dr Jaramillo one stent COLONOSCOPY N/A 08/23/2017 nonbleeding internal hemorrhoids ECHO, COMPLETE (2D), TRANS-THORACIC 06/02/2016 mild LVH normal LV wall motion, EF 55-60% EGD, FLEXIBLE, DIAGNOSTIC N/A 08/23/2017 [facility] LUMBAR SPINE WITHOUT CONTRAST 05/23/2023 small broad based bulging disc L4-5 not iminging on spinal cord INJECT DX/THER SUBSTANCE INTERLAMINAR LUMBAR/SACRAL W IMAGE GUIDE 02/03/2024 INJECTION SPINE LUMBAR OR SACRAL performed by Raffi Oscar DO at OR [facility] POLYSOMNOGRAPHY, 1-3 PARAMETERS 02/04/2002 no sleep apnea but only slept 1 hour 50 minutes REMOVE CATARACT, INSERT LENS PROSTH Right 12/14/2021 Right EXTRACAPSULAR CATARACT REMOVAL WITH INTRAOCULAR LENS performed by Randell Franklin MD at OR [facility] REMOVE CATARACT, INSERT LENS PROSTH Left 01/05/2022 Left EXTRACAPSULAR CATARACT REMOVAL WITH INTRAOCULAR LENS performed by Randell Franklin MD at OR [facility] US ABDOMEN LIMITED Right 07/17/2021 moderate to severe hepatic steatosis Review of patient's allergies indicates: No Known Allergies Social History Socioeconomic History Marital status: Spouse name: Not on file Number of children: Not on file Years of education: Not on file Highest education level: Not on file Occupational History Not on file Tobacco Use Smoking status: Every Day Current packs/day: 1.00 Average packs/day: 1 pack/day for 42.6 years (42.6 ttl pk-yrs) Types: Cigarettes Start date: 1981 Smokeless tobacco: Never Vaping Use Vaping status: Never Used Substance and Sexual Activity Alcohol use: Yes Comment: occasionally 2x a year Drug use: Never Sexual activity: Yes Other Topics Concern Not on file Social History Narrative Not on file Social Determinants of Health Financial Resource Strain: Low Risk (01/24/2024) Financial Resource Strain Do you have any trouble paying for your medications, or do you think you might in the future? (Adult - for ages 18 years and over): No Does your family have trouble paying for medicine? (Household - for ages 0-17 years): Not on file Food Insecurity: No Food Insecurity (01/24/2024) Food Insecurity Do you need food for this week? (Adult - for ages 18 years and over): No Are you able to get enough food for your family? (Household - for ages 0-17 years): Not on file Does your family need food this week? (Household - for ages 0-17 years): Not on file Do you always have enough food for your family? (Household - for ages 0-17 years): Not on file Transportation Needs: No Transportation Needs (01/24/2024) Transportation Needs Do you have trouble getting a ride to medical visits or work? (Adult - for ages 18 years and over):Never True Does your family have a hard time getting a ride to doctors visits? (Household - for ages 0-17 years): Not on file Has lack of transportation kept you from medical appointments, meetings, work, or from getting things needed for daily living? Check all that apply. (Adult - for ages 18 years and over): Not on file Do you (or your family) have trouble finding or paying for a ride (transportation)? (Household - for ages 0-17 years): Not on file Social Connections: Socially Integrated (01/24/2024) Social Connections How often do you feel lonely or isolated from those around you? (Adult - for ages 18 years and over): Never Housing Stability: Low Risk (01/24/2024) Housing Stability Do you currently live in a jail or have no steady place to sleep at night? (Adult - for ages 18 years and over): No Do you think you are at risk of becoming homeless? (Adult - for ages 18 years and over): No Does your family worry about paying for your home or becoming homeless? (Household - for ages 0-17 years): Not on file Are you homeless or worried that you might be in the future? (Adult - for ages 18 years and over): Not on file Are you (or your family) homeless or worried that you might be in the future? (Household - for ages0-17 years): Not on file Current Outpatient Medications Medication Sig Dispense Refill clopidogrel (PLAVIX) 75 MG Tablet Take 1 Tablet by mouth in the morning. rosuvastatin (CRESTOR) 40 MG Tablet Take 1 Tablet by mouth in the morning. Riboflavin 400 MG Oral Tablet Take by mouth 1 Tablet before bedtime. 90 Tablet 3 Magnesium Oxide 400 (240 Mg) MG Oral Tablet Take by mouth 1 Tablet before bedtime. 90 Tablet 3 Fluticasone Propionate 50 MCG/ACT Nasal Suspension Administer 2 Sprays into each nostril in the morning. 16 g 3 CPAP every night at bedtime. Sertraline HCl 25 MG Oral Tablet (Zoloft) Take 1 Tablet by mouth in the morning. 30 Tablet 11 Irbesartan 75 MG Oral Tablet (Avapro) Take 1 Tablet by mouth in the morning. 90 Tablet 1 Pioglitazone HCl 30 MG Oral Tablet (Actos) Take 1 Tablet by mouth in the morning. 90 Tablet 1 Levocetirizine Dihydrochloride 5 MG Oral Tablet Take 1 Tablet by mouth every evening. 90 Tablet 1 LORazepam 1 MG Oral Tablet (Ativan) Take 1 Tablet by mouth daily as needed for Anxiety. 30 Tablet 0 Amitriptyline HCl 10 MG Oral Tablet (Elavil) Take 1 Tablet by mouth at bedtime. 90 Tablet 1 Ezetimibe 10 MG Oral Tablet (Zetia) Take 1 Tablet by mouth in the morning. 90 Tablet 1 Pantoprazole Sodium 40 MG Oral Tablet Delayed Release (Protonix) Take 1 Tablet by mouth in the morning. 90 Tablet 1 No current facility-administered medications for this visit. There is no immunization history on file for this patient. Results for orders placed or performed in visit on 04/28/23 LIPID PANEL WITH DIRECT LDL IF TG IS HIGH Result Value Ref Range Triglycerides 288 (H) <=174 mg/dL Cholesterol 174 <200 mg/dL HDL Cholesterol 34 (L) >39 mg/dL Non-HDL Cholesterol 140 <=159 mg/dL Lab Results Component Value Date/Time LDL (CALCULATED)-OUTSIDE LAB 62 09/08/2018 12:00 AM LDL CHOLESTEROL (CALCULATED) - [facility] 59 05/03/2024 08:14 AM LDL CHOLESTEROL (DIRECT MEASURE) - [facility] 92 04/28/2023 08:20 AM LDL CHOLESTEROL (DIRECT MEASURE) - [facility] 84 10/08/2020 10:34 AM O: Blood pressure 122/72, pulse 116, temperature (!) 38.1 C (100.5 F), temperature source Tympanic, resp. rate 18, weight (!) 155 kg (341 lb 11.2 oz), SpO2 94%. Pharynx mildly inflammed, Neck is supple without adenopathy or thyromegaly. Chest is symmetrical and moves normally. The lungs are clear without wheezes, rales, rhonchi or rubs, and the heart is regular without murmurs or gallops, or ectopy. PMI not displaced. Rapid strep positive A: Strep sore throat (Primary) - Penicillin V Potassium 500 MG Oral Tablet (Veetids); Take 1 Tablet by mouth in the morning and 1 Tablet at noon and 1 Tablet before bedtime. Do all this for 10 days. Gastro-esophageal reflux disease with esophagitis, without bleeding - Pantoprazole Sodium 40 MG Oral Tablet Delayed Release (Protonix); Take 1 Tablet by mouth in the morning. Sore throat (viral) - STREP A SCREEN, POINT OF CARE (ENTER/EDIT) Follow Up: Return if symptoms worsen or fail to improve. documented in this encounter Nursing Notes * Ayse Apodaca LPN - 06/11/2024 12:17 PM EDT Pt in today for fever, chills, headache, sore throat. Just started this morning No cough or SOB Did take 1000 mg Tylenol around 9 documented in this encounter Plan of Treatment Upcoming Encounters Date Type Department Care Team (Late st Contact Info) Description 12/25/2024 7:20 AM EST Office Visit Family [address] [place] [phone] Tatyana Holcomb MD [address] [place] [address] [place] [phone] Health Maintenance Due Date Last Done Comments DISCUSS TOBACCO CESSATION (REFER TO SMARTSET #6105) 1969 Pneumococcal Vaccine: Pediatrics (0 to 5 Years) and At-Risk Patients (6 to 64 Years) (1 of 2 - PCV) 1975 HIV Screening 1984 Hepatitis C Screening 1987 DTaP,Tdap,and Td Vaccines (1 - Tdap) 1988 Hepatitis B Vaccine (1 of 3 - 19+ 3-dose series) 1988 Cologuard 2014 Fecal Occult Blood Test 2014 Sigmoidoscopy 2014 Zoster Vaccines (1 of 2) 2019 COVID-19 Vaccine ( - season) 2023 Influenza Vaccine (FLU shot) (#1) 2024 GFR 12/28/2024 12/28/2023, 05/2024, 04/28/2023, Additional history exists Depression Screening 01/23/2025 01/24/2024 HbA1c 05/03/2025 05/03/2024, 10/14, 04/28/2023, Additional history exists Albumin/Creatinine Ratio 05/03/2027 024, 05/04/2023, 04/19/2022 Colonoscopy 08/23/2027 08/23/2017 Colorectal Cancer Screening 08/23/2027 *BASELINE EKG FOR HTN Completed 10/08/2020 Lung Cancer Screening Completed 08/04/2022 Diabetic Eye Exam Discontinued 10/31/2023, , 07/29/2021 Diabetic Foot Exam Discontinued 10/31/2023, 1 12/29/2021, 10/22/2021 HPV (Gardasil) Vaccine Aged Out No lo nger eligible based on patient's age to complete this topic MENINGOCOCCAL (MENACTRA/MENVEO) Aged Out No longer eligible based on patient's age to complete this topic documented as of this encounter Medical Devices Implanted Type Area Programming Internship Device Identifier Shelf Expiration Date Model / Serial / Lot Lens Intraoc 19.5 - [id number] - [id number] Implanted:Qty: 1 on 12/14/2021 by Randell Franklin MD at OR [facility] Right: Eye [employer] 08/13/2026 [id number] / [id number] / [id number] Lens Intraoc 19.0 - [id number] - [id number] Implanted:Qty: 1 on 01/05/2022 by Randell Franklin MD at OR [facility] Left: Eye [employer] 06/13/2026 [id number] / [id number] / [id number] documented as of this encounter Procedures Procedure Name Priority Date/Time Associated Diagnosis Comments STREP A SCREEN, POINT OF CARE (ENTER/EDIT) Routine 06/11/2024 Sore throat (viral) documented in this encounter Results * STREP A SCREEN, POINT OF CARE (ENTER/EDIT) (06/11/2024) Strep A Result Positive Negative Procedural Control Valid? Yes Lot Number [id number] Expiration Date 04/05/25 Swab Throat swab / Unknown 06/11/2024 Oj Sarah MD LAB POINT OF CARE TE ST ENTER/EDIT ORDERABLES documented in this encounter Visit Diagnoses Diagnosis Strep sore throat- Primary Streptococcal sore throat Gastro-esophageal reflux disease with esophagitis, without bleeding Sore throat (viral) Acute pharyngitis documented in this encounter Care Teams Pathology Laboratory Aide Relationship Specialty Start Date End Date Tatyana Holcomb MD [address] [place] [address] [place] [id number] PCP - General Family Medicine 02/03/24 documented as of this encounter
--- OUTSIDE RECORDS SUMMARY | 2024-08-15 11:28 | External Medical Summary | Summary of Care ---
Author Name Unknown Organization [facility] Address [address] [place] [address] Phone [phone] Care Team Providers Care [place] Name Role Phone Tatyana Holcomb MD Primary Care Provide r Encounter Details Date Type Department Care Team (Late st Contact Info) Description 05/14/2024 Orders Only Outcomes Research Department [address] [place], [place] [id number] Lisa Ferris CHRA [employer] Research Other*[id number] Allergies No known active allergiesdocumented as of this encounter (statuses as of 05/14/2024) Medications Medication Sig Dispensed Refills Start Date [...] the morning. 30 Tablet 11 08/19/2023 Active Amitriptyline HCl 10 MG Oral Tablet (Elavil)Indications:Fr equent headaches Take 1 Tablet by mouth at bedtime. 90 Tablet 1 10/31/2023 Active Ezetimibe 10 MG Oral Tablet (Zetia)Indications:Cor onary artery disease involving [place] coronary artery of [place] heart without angina pectoris Take 1 Tablet by mouth in the morning. 90 Tablet 1 10/31/2023 Active Irbesartan 75 MG Oral Tablet (Avapro)Indications:DM type 2, goal HbA1c < 7% ([facility]),Coronary artery disease involving [place] coronary artery of [place] heart without angina pectoris,Primary hypertension Take 1 Tablet by mouth in the morning. 90 Tablet 1 10/31/2023 Active Pantoprazole Sodium 40 MG Oral Tablet Delayed Release (Protonix)Indications: Gastro-esophageal reflux disease with esophagitis, without bleeding Take 1 Tablet by mouth in the morning. 90 Tablet 1 10/31/2023 Active Pioglitazone HCl 30 MG Oral Tablet (Actos)Indications:DM type 2, goal HbA1c < 7% ([facility]) Take 1 Tablet by mouth in the morning. 90 Tablet 1 10/31/2023 Active Levocetirizine Dihydrochloride 5 MG Oral TabletIndications:Pres sure sensation in both ears Take 1 Tablet by mouth every evening. 90 Tablet 1 02/15/2024 Active LORazepam 1 MG Oral Tablet (Ativan)Indications:Ge neralized anxiety disorder,Panic attack Take 1 Tablet by mouth daily as needed for Anxiety. 30 Tablet 05/03/2024 Active documented as of this encounter (statuses as of 05/14/2024) Active Problems Problem Noted Date Diagnosed Date Panic attack 05/03/2024 Morbid obesity with BMI of 40.0-44.9, adult 05/14 Overview: 328 Degenerative lumbar disc 05/23/2023 Overview: [facility] broad based bulging disc L4-5 not impinging on spinal cord, had trigger point injections Tobacco use disorder 08/16/2022 Hearing loss, sensorineural, high frequency, emperatriz ateral 06/29/2022 Dysfunction of both eustachian tubes 04/26/2022 Primary hypertension 04/14/2020 Dyslipidemia, goal LDL below 70 04/14/2020 Generalized anxiety disorder Coronary artery disease invo lving [place] coronary artery of [place] heart without angina pectoris Overview: stent 2017 Gastroesophageal reflux dise ase with esophagitis without hemorrhage documented as of this encounter (statuses as of 05/14/2024) Resolved Problems Problem Noted Date Diagnosed Date Resolved Date BMI 39.0-39.9,adult 04/26/2022 10/28/20 22 Overview: 320 DM type 2, goal HbA1c < 7% 07/30/2021 0 05/03/2024 Overview: [facility] ER hgba1c 7.5 BMI 40.0-44.9, adult 023 documented as of this encounter (statuses as of 05/14/2024) Immunizations No known immunizationsdocumented as of this encounter Social History Tobacco Use Types Packs/Day Years Used Date Smoking Tobacco: Every Day Cigarettes 1 42.5 Started: 1982 Smokeless Tobacco: Never Alcohol Use [...] No 01/24/2024 Does the household have a [facility] source of income? (Household - for ages [...] on file documented as of this encounter Plan of Treatment Upcoming Encounters Date Type Department Care Team (Late st Contact Info) Description 12/25/2024 7:20 AM EST Office Visit Family Medicine [address] [place] [phone] Tatyana Holcomb MD [address] [place] [address] [place] [phone] Scheduled Orders Name Type Priority Associated Diagnoses Orde r Schedule MYCODE SUBSEQUENT ADULT Lab Routine MyCode Research Other*[id number] Every 6 Months for 2 Occurrences starting 05/14/2024 until 06/03/2025 Health Maintenance Due Date Last Done Comments DISCUSS TOBACCO CESSATION (REFER TO SMARTSET #1294) 1969 Pneumococcal Vaccine: Pediatrics (0 to 5 Years) and At-Risk Patients (6 to 64 Years) (1 of 2 - PCV) 1975 HIV Screening 1984 Hepatitis C Screening 1987 DTaP,Tdap,and Td Vaccines (1 - Tdap) 1988 Hepatitis B (1 of 3 - 19+ 3-dose series) 1988 Cologuard 2014 Fecal Occult Blood Test 2014 Sigmoidoscopy 2014 Zoster Vaccines (1 of 2) 2019 COVID-19 Vaccine (1 - season) 2023 Influenza Vaccine (FLU shot) (Season Ended) 2024 GFR 12/28/2024 12/28/2023, 02/0 05/2024, 04/28/2023, Additional history exists Depression Screening 01/23/2025 01/24/2024 Albumin/Creatinine Ratio 05/03/2027 024, 05/04/2023, 04/19/2022 Diabetes Screening 05/03/2027 05/03/2024, 0 12/28/2023, 12/21/2023, Additional history exists Colonoscopy 08/23/2027 08/23/2017 Colorectal Cancer Screening 08/23/2027 Lung Cancer Screening Completed 08/04/2022 Diabetic Eye Exam Discontinued 10/31/2023, , 07/29/2021 Diabetic Foot Exam Discontinued 10/31/2023, 1 12/29/2021, 10/22/2021 GARDASIL-HPV IMMUNIZATION SERIES Aged Out No longer eligible based on patient's age to complete this topic MENINGOCOCCAL (MENACTRA/MENVEO) Aged Out No longer eligible based on patient's age to complete this topic documented as of this encounter Medical Devices Implanted Type Area Senior Accountant Device Identifier Shelf Expiration Date Model / Serial / Lot Lens Intraoc 19.5 - [id number] - [id number] Implanted:Qty: 1 on 12/14/2021 by Randell Franklin MD at OR [facility] Right: Eye [employer] 08/13/2026 [id number] / [id number] / [id number] Lens Intraoc 19.0 - [id number] - [id number] Implanted:Qty: 1 on 01/05/2022 by Randell Franklin MD at OR [facility] Left: Eye [employer] 06/13/2026 [id number] / [id number] / [id number] documented as of this encounter Visit Diagnoses Diagnosis MyCode Research Other*[id number] documented in this encounter Care Teams [place] Relationship Specialty Start Date End Date Tatyana Holcomb MD [address] [place] [address] [place] [phone] PCP - General Family Medicine 02/03/24 documented as of this encounter
--- OUTSIDE RECORDS SUMMARY | 2024-08-15 11:28 | External Medical Summary | Summary of Care ---
Author Name Unknown Organization [facility] Address [address] [facility] [place] [address] Phone [phone] Care Team Providers Care Inspector [employer]ated [employer] Name Role Phone Tatyana Holcomb MD Primary Care Provide r Reason for Visit * Reason Comments NEW PATIENT Former pt of Dr. Leigha colin. Encounter Details Date Type Department Care Team (Late st Contact Info) Description 05/03/2024 7:40 AM EDT Office Visit Family Medicine [address] [phone] Tatyana Holcomb MD [address] [place] [address] [place] [id number] HTN, goal below 140/90*; Generalized anxiety disorder; Panic attack; Dyslipidemia, goal LDL below 70; Type 2 diabetes mellitus with hemoglobin A1c goal of less than 7.0% ([facility]); Anemia, unspecified type Allergies No known active allergiesdocumented as of this encounter (statuses as of 05/03/2024) Medications Medication Sig Dispensed Refills Start Date [...] 10/31/2023 Active Ezetimibe 10 MG Oral Tablet (Zetia)Indications:C oronary artery disease involving [place] coronary artery of [place] heart without angina pectoris Take 1 Tablet by mouth in the morning. 90 Tablet 1 10/31/2023 Active Irbesartan 75 MG Oral Tablet (Avapro)Indications: DM type 2, goal HbA1c < 7% (HCC),Coronary artery disease involving [place] coronary artery of [place] heart without angina pectoris,Primary hypertension Take 1 Tablet by mouth in the morning. 90 Tablet 1 10/31/2023 Active Pantoprazole Sodium 40 MG Oral Tablet Delayed Release (Protonix)Indication s:Gastro-esophageal reflux disease with esophagitis, without bleeding Take 1 Tablet by mouth in the morning. 90 Tablet 1 10/31/2023 Active Pioglitazone HCl 30 MG Oral Tablet (Actos)Indications:D M type 2, goal HbA1c < 7% (HCC) [...] needed for Anxiety. 30 Tablet 05/03/2024 Active Cyclobenzaprine HCl 10 MG Oral Tablet (Flexeril) Take 1 Tablet by mouth in the morning and 1 Tablet before bedtime. 05/25/2023 4 Discontinu ed(Medicat ion List Clean Up) Gabapentin 300 MG Oral Capsule (Neurontin) Take one capsule by mouth one hour prior to bed for one week, then increase to one capsule AM and one capsule PM. 60 Capsule 2 09/28/2023 4 Discontinu ed(Medicat ion List Clean Up) LORazepam 1 MG Oral Tablet (Ativan)Indications: Generalized anxiety disorder Take 1 Tablet by mouth 3 times a day as needed for Anxiety. 60 Tablet 10/13/2023 4 Discontinu ed(Refill) documented as of this encounter (statuses as of 05/03/2024) Active Problems Problem Noted Date Diagnosed Date Panic attack 05/03/2024 Morbid obesity with BMI of 40.0-44.9, adult 05/14 Overview: 328 Degenerative lumbar disc 05/23/2023 Overview: [facility] broad based bulging disc L4-5 not impinging on spinal cord, had trigger point injections Tobacco use disorder 08/16/2022 Hearing loss, sensorineural, high frequency, emperatriz ateral 06/29/2022 Dysfunction of both eustachian tubes 04/26/2022 Primary hypertension 04/14/2020 Dyslipidemia, goal LDL below 70 04/14/2020 Generalized anxiety disorder Coronary artery disease invo lving [place] coronary artery of [place] heart without angina pectoris Overview: stent 2017 Gastroesophageal reflux dise ase with esophagitis without hemorrhage documented as of this encounter (statuses as of 05/03/2024) Resolved Problems Problem Noted Date Diagnosed Date Resolved Date BMI 39.0-39.9,adult 04/26/2022 10/28/20 22 Overview: 320 DM type 2, goal HbA1c < 7% 07/30/2021 0 05/03/2024 Overview: [facility] ER hgba1c 7.5 BMI 40.0-44.9, adult 023 documented as of this encounter (statuses as of 05/03/2024) Immunizations No known immunizationsdocumented as of this [...] Sign Reading Time Taken Comments Blood Pressure 130/72 05/03/2024 7:45 AM EDT Pulse 74 05/03/2024 7:45 AM EDT Temperature - - Respiratory Rate - - Oxygen Saturation 97% 05/03/2024 7:45 AM EDT Inhaled Oxygen Concentration - - Weight 156.3 kg (344 lb 9.6 oz) 05/03/2024 7:45 AM EDT Height - - Body Mass Index 44.22 02/03/2024 7:20 AM EDT documented in this encounter Progress Notes * Tatyana Holcomb MD - 05/03/2024 7:53 AM EDT Subjective: HPI: Reza Jesus is a 53 year old male with hx of CAD s/p stent , HLD, DMII, HTN, MARTÍN, DDD, hearing loss seen for CAD s/p stent: - follows up with [facility] cardiology - on crestor and plavix DMII: - on Actos 30mg daily - did not tolerate metformin HTN: - on Irbesartan 75mg daily - complaint with medication MARTÍN: -on zoloft 25mg daily and Amitriptyline 10mg daily - per pt he has intermittent insomnia - takes as needed ativan for panic attack ----- only took it one time in 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 [employer] Denied any blood or black stool Patient Active Problem List Diagnosis Generalized anxiety disorder Coronary artery disease involving [place] coronary artery of [place] heart without angina pectoris Gastroesophageal reflux disease with esophagitis without hemorrhage Primary hypertension Dyslipidemia, goal LDL below 70 Dysfunction of both eustachian tubes Hearing loss, sensorineural, high frequency, bilateral Tobacco use disorder Morbid obesity with BMI of 40.0-44.9, adult (HCC) Degenerative lumbar disc Panic attack Current Outpatient Medications Medication Sig Dispense Refill [...] mouth in the morning. 30 Tablet 11 Amitriptyline HCl 10 MG Oral Tablet (Elavil) Take 1 Tablet by mouth at bedtime. 90 Tablet 1 Ezetimibe 10 MG Oral Tablet (Zetia) Take 1 Tablet by mouth in the morning. 90 Tablet 1 Irbesartan 75 MG Oral Tablet (Avapro) Take [...] as needed for Anxiety. 30 Tablet 0 No current facility-administered medications for this visit. Past Medical History: Diagnosis Date BMI 40.0-44.9, adult (HCC) Coronary artery disease stent 2017 Degenerative lumbar disc 05/23/2023 [facility] broad based bulging disc L4-5 not impinging on spinal cord, had trigger point injections DM type 2, goal HbA1c < 7% ([facility]) 07/30/2021 [facility] ER hgba1c 7.5 Dysfunction of both eustachian tubes 04/26/2022 Generalized anxiety disorder GERD with esophagitis Hearing loss, sensorineural, high frequency, bilateral 06/29/2022 Male erectile disorder Morbid obesity with BMI of 40.0-44.9, adult ([facility]) 05/31/2023 328 Primary hypertension Sleep apnea, obstructive Past Surgical History: Procedure Laterality Date CARDIAC CATH-CARDIOLOGY ONLY 2016 Dr Jaramillo one stent COLONOSCOPY N/A 08/23/2017 nonbleeding internal hemorrhoids ECHO, COMPLETE (2D), TRANS-THORACIC 06/02/2016 mild LVH normal LV wall motion, EF 55-60% EGD, FLEXIBLE, DIAGNOSTIC N/A 08/23/2017 MRI LUMBAR SPINE WITHOUT CONTRAST 05/23/2023 small broad based bulging disc L4-5 not iminging on spinal cord INJECT DX/THER SUBSTANCE INTERLAMINAR LUMBAR/SACRAL W IMAGE GUIDE 02/03/2024 INJECTION SPINE LUMBAR OR SACRAL performed by Raffi Oscar DO at OR [facility] POLYSOMNOGRAPHY, 1-3 PARAMETERS 02/04/2002 no sleep apnea but only slept 1 hour 50 minutes REMOVE CATARACT, INSERT LENS PROSTH Right 12/14/2021 Right EXTRACAPSULAR CATARACT REMOVAL WITH INTRAOCULAR LENS performed by Randell Franklin MD at OR [facility] REMOVE CATARACT, INSERT LENS PROSTH Left 01/05/2022 Left EXTRACAPSULAR CATARACT REMOVAL WITH INTRAOCULAR LENS performed by Randell Franklin MD at OR [facility] US ABDOMEN LIMITED Right 07/17/2021 moderate to severe hepatic steatosis Review of patient's allergies indicates: No Known Allergies Family History Problem Relation Name Age of Onset Diabetes Mother Cancer Mother Unknown type Crohn's disease Mother Fibromyalgia Mother Other (Sepsis) Mother in her early 70s Other (MVA) Father unknown to the pt Social History Tobacco Use Smoking status: Every Day Current packs/day: 1.00 Average packs/day: 1 pack/day for 42.5 years (42.5 ttl pk-yrs) Types: Cigarettes Start date: 1981 Smokeless tobacco: Never Substance Use Topics Alcohol use: Yes Comment: occasionally 2x a year Vaping/E-Cigarette Use Vaping/E-Cigarette Use Never User Vaping/E-Cigarette Substances Nicotine No Other No Flavoring No THC No Cannabidiol (CBD) No Vaping/E-Cigarette Devices Disposable No Pre-filled or Refillable Cartridge No Refillable Tank No Pre-filled Pod No ROS: -Per HPI OBJECTIVE: BP 130/72 | Pulse 74 | Wt (!) 156.3 kg (344 lb 9.6 oz) | SpO2 97% | BMI 44.22 kg/m | BSA 2.86 m PHYSICAL EXAM: Vitals are reviewed General:. NAD, well developed HEENT:. Normal Conjunctiva, EOMI Cardiac:. Normal S1, S2, no murmur Lungs:. CTA, no wheezing or crackles Abd:. soft, ND, NT MSK:. Normal gait Psych:. AAOx3, normal affect ASSESSMENT/PLAN: Discussed the use of ativan - as long as pt is using prn and infrequently will continue to refill the med Bp is wnl - continue current med HTN, goal below 140/90 (Primary) Generalized anxiety disorder - LORazepam 1 MG Oral Tablet (Ativan); Take 1 Tablet by mouth daily as needed for Anxiety. Panic attack - LORazepam 1 MG Oral Tablet (Ativan); Take 1 Tablet by mouth daily as needed for Anxiety. Dyslipidemia, goal LDL below 70 - LIPID PANEL WITHOUT DIRECT LDL Type 2 diabetes mellitus with hemoglobin A1c goal of less than 7.0% ([facility]) - HEMOGLOBIN A1C - ALBUMIN / CREATININE RATIO, URINE Anemia, unspecified type - CBC WITH WBC DIFFERENTIAL Follow Up: Return in about 6 months (around 11/02/2024). Tatyana Holcomb MD Family medicine, [address] [address] documented in this encounter Plan of Treatment Upcoming Encounters Date Type Department Care Team (Late st Contact Info) Description 12/25/2024 7:20 AM EST Office Visit Family Medicine [address] [place] [phone] Tatyana Holcomb MD [address] [place] [address] [place] [id number] Pending Results Name Type Priority Associated Diagnoses Date /Time HEMOGLOBIN A1C Lab Routine Type 2 diabetes mellitus with hemoglobin A1c goal of less than 7.0% ([facility]) 05/03/2024 8:14 AM EDT ALBUMIN / CREATININE RATIO, URINE Lab Routine Type 2 diabetes mellitus with hemoglobin A1c goal of less than 7.0% ([facility]) 05/03/2024 8:14 AM EDT LIPID PANEL WITHOUT DIRECT LDL Lab Routine Dyslipidemia, goal LDL below 70 05/03/2024 8:14 AM EDT CBC WITH WBC DIFFERENTIAL Lab Routine Anemia, unspecified type 05/03/2024 8:14 AM EDT CBC Lab Routine Anemia, unspecified type 05/03/2024 8:14 AM EDT DIFFERENTIAL, AUTOMATED Lab Routine Anemia, unspecified type 05/03/2024 8:14 AM EDT Health Maintenance Due Date Last Done Comments DISCUSS TOBACCO CESSATION (REFER TO SMARTSET #1023) 1969 Pneumococcal Vaccine: Pediatrics (0 to 5 [...] shot) (Season Ended) 2024 GFR 12/28/2024 12/28/2023, 0 05/2024, 04/28/2023, Additional history exists Depression Screening 01/23/2025 01/24/2024 Albumin/Creatinine Ratio 05/04/2026 05/04/2023, 04/2022 Diabetes Screening 12/28/2026 12/28/2023, 0 12/21/2023, 10/31/2023, Additional history exists Colonoscopy 08/23/2027 08/23/2017 Colorectal [...] this encounter Medical Devices Implanted Type Area Pack Puller Device Identifier Shelf Expiration Date Model / Serial / Lot Lens Intraoc 19.5 - [id number] - [id number] Implanted:Qty: 1 on 12/14/2021 by Randell Franklin MD at OR [facility] Right: Eye [employer] 08/13/2026 [id number] / [id number] / [id number] Lens Intraoc 19.0 - [id number] - [id number] Implanted:Qty: 1 on 01/05/2022 by Randell Franklin MD at OR [facility] Left: Eye [employer] 06/13/2026 [id number] / [id number] / [id number] documented as of this encounter Visit Diagnoses Diagnosis HTN, goal below 140/90- Primary Unspecified essential hypertension Generalized anxiety disorder Panic attack Panic disorder without agoraphobia Dyslipidemia, goal LDL below 70 Other and unspecified hyperlipidemia Type 2 diabetes mellitus with hemoglobin A1c goal of less than 7.0% (HCC) Anemia, unspecified type documented in this encounter Care Teams Inspector [employer] Relationship Specialty Start Date End Date Tatyana Holcomb MD [address] [place] [address] [place] [id number] PCP - General Family Medicine 02/03/24 documented as of this encounter"
--- OUTSIDE RECORDS SUMMARY | 2024-08-15 11:28 | External Medical Summary | Summary of Care ---
Author Name Unknown Organization [facility] Address [address] [facility] [place] [address] Phone [phone] Care Team Providers Care Janitorial Supervisor Name Role Phone Tatyana Holcomb MD Primary Care Provide r Reason for Visit * Reason Comments eRx-Medication Refill Encounter Details Date Type Department Care Team (Late st Contact Info) Description 05/24/2024 Refill Family Medicine [address] [phone] Oj Sarah MD [address] [place] [address] [place] [phone] Frequent headaches; Coronary artery disease involving osage coronary artery of osage heart without angina pectoris Allergies No known active allergiesdocumented as of this encounter (statuses as of 05/25/2024) Medications Medication Sig Dispensed Refills Start Date End Date Status clopidogrel (PLAVIX) 75 MG Tablet Take 1 Tablet by mouth in the morning. 0 Active rosuvastatin (CRESTOR) 40 MG Tablet Take 1 Tablet by mouth in the morning. 0 Active Riboflavin 400 MG Oral TabletIndications:Fr equent headaches Take by mouth 1 Tablet before bedtime. 90 Tablet 3 2 Active Magnesium Oxide 400 (240 Mg) MG Oral TabletIndications:Fr equent headaches Take by mouth 1 Tablet before bedtime. 90 Tablet 3 2 Active Fluticasone Propionate 50 MCG/ACT Nasal SuspensionIndication s:Dysfunction of both eustachian tubes Administer 2 Sprays into each nostril in the morning. 16 g 3 3 Active CPAP every night at bedtime. Active Sertraline HCl 25 MG Oral Tablet (Zoloft)Indications: Generalized anxiety disorder Take 1 Tablet by mouth in the morning. 30 Tablet 11 3 Active Irbesartan 75 MG Oral Tablet (Avapro)Indications: DM type 2, goal HbA1c < 7% ([facility]),Coronary artery disease involving os[place] coronary artery of osage heart without angina pectoris,Primary hypertension Take 1 Tablet by mouth in the morning. 90 Tablet 1 3 Active Pantoprazole Sodium 40 MG Oral Tablet Delayed Release (Protonix)Indication s:Gastro-esophageal reflux disease with esophagitis, without bleeding Take 1 Tablet by mouth in the morning. 90 Tablet 1 3 Active Pioglitazone HCl 30 MG Oral Tablet (Actos)Indications:D M type 2, goal HbA1c < 7% ([facility]) Take 1 Tablet by mouth in the morning. 90 Tablet 1 3 Active Levocetirizine Dihydrochloride 5 MG Oral TabletIndications:Pr essure sensation in both ears Take 1 Tablet by mouth every evening. 90 Tablet 1 4 Active LORazepam 1 MG Oral Tablet (Ativan)Indications: Generalized anxiety disorder,Panic attack Take 1 Tablet by mouth daily as needed for Anxiety. 30 Tablet 4 Active Amitriptyline HCl 10 MG Oral Tablet (Elavil)Indications: Frequent headaches Take 1 Tablet by mouth at bedtime. 90 Tablet 1 4 Active Ezetimibe 10 MG Oral Tablet (Zetia)Indications:C oronary artery disease involving os[place] coronary artery of osage heart without angina pectoris Take 1 Tablet by mouth in the morning. 90 Tablet 1 4 Active Amitriptyline HCl 10 MG Oral Tablet (Elavil)Indications: Frequent headaches Take 1 Tablet by mouth at bedtime. 90 Tablet 1 3 05/25/20 24 Discontinued Ezetimibe 10 MG Oral Tablet (Zetia)Indications:C oronary artery disease involving os[place] coronary artery of osage heart without angina pectoris Take 1 Tablet by mouth in the morning. 90 Tablet 1 3 05/25/20 24 Discontinued documented as of this encounter (statuses as of 05/25/2024) Active Problems Problem Noted Date Diagnosed Date Prediabetes 05/21/2024 Overview: Per Prediabetes protocol Panic attack 05/03/2024 Morbid obesity with BMI of 40.0-44.9, adult 05/14 Overview: 328 Degenerative lumbar disc 05/23/2023 Overview: [facility] broad based bulging disc L4-5 not impinging on spinal cord, had trigger point injections Tobacco use disorder 08/16/2022 Hearing loss, sensorineural, high frequency, emperatriz ateral 06/29/2022 Dysfunction of both eustachian tubes 04/26/2022 Primary hypertension 04/14/2020 Dyslipidemia, goal LDL below 70 04/14/2020 Generalized anxiety disorder Coronary artery disease invo lving os[place] coronary artery of osage heart without angina pectoris Overview: stent 2017 Gastroesophageal reflux dise ase with esophagitis without hemorrhage documented as of this encounter (statuses as of 05/25/2024) Resolved Problems Problem Noted Date Diagnosed Date Resolved Date BMI 39.0-39.9,adult 04/26/2022 10/28/20 22 Overview: 320 DM type 2, goal HbA1c < 7% 07/30/2021 0 05/03/2024 Overview: [facility] ER hgba1c 7.5 BMI 40.0-44.9, adult 023 documented as of this encounter (statuses as of 05/25/2024) Immunizations No known immunizationsdocumented as of this [...] No 01/24/2024 Does the household have a unm cancer centerlar source of income? (Household - for ages [...] encounter Miscellaneous Notes * Telephone Encounter - Ellen Borja [facility] - 05/25/2024 11:08 AM EDT Signed Prescriptions: Disp Refills Amitriptyline HCl 10 MG Oral Tablet (Elavi*90 Tab*1 Sig: Take 1 Tablet by mouth at bedtime.Authorizing Provider: Gabi HOLCOMB User: ELLEN BORJA Ezetimibe 10 MG Oral Tablet (Zetia) 90 Tab*1 Sig: Take 1 Tablet by mouth in the morning.Au thorizing Provider: Gabi HOLCOMB User: ELLEN BORJA documented in this encounter Plan of Treatment Upcoming Encounters Date Type Department Care Team (Late st Contact Info) Description 12/25/2024 7:20 AM EST Office Visit Family Medicine [address] [phone] Tatyana Holcomb MD [address] [place] [address] [place] [address] Health Maintenance Due Date Last Done Comments DISCUSS TOBACCO CESSATION (REFER TO SMARTSET #2639) 1970 Pneumococcal Vaccine: Pediatrics (0 to 5 [...] this encounter Medical Devices Implanted Type Area Layout Former Device Identifier Shelf Expiration Date Model / Serial / Lot Lens Intraoc 19.5 - [id number] - [id number] Implanted:Qty: 1 on 12/14/2021 by Randell Franklin MD at OR [facility] Right: Eye [employer] 08/13/2026 [id number] / [id number] / [id number] Lens Intraoc 19.0 - [id number] - [id number] Implanted:Qty: 1 on 01/05/2022 by Randell Franklin MD at OR [facility] Left: Eye [employer] 06/13/2026 [id number] / [id number] / [id number] documented as of this encounter Visit Diagnoses Diagnosis Frequent headaches Coronary artery disease involving osage coronary artery of osage heart without angina pectoris documented in this encounter Care Teams Janitorial Supervisor Relationship Specialty Start Date End Date Tatyana Holcomb MD [address] [place] [address] [place] [phone] PCP - General Family Medicine 02/03/24 documented as of this encounter
--- OUTSIDE RECORDS SUMMARY | 2024-08-15 11:28 | External Medical Summary | Summary of Care ---
Author Name Unknown Organization [facility] Address [address] [facility] [place] [address] Phone [phone] Care Team Providers Care Research Home Economist Name Role Phone Tatyana Holcomb MD Primary Care Provide r Reason for Visit * Reason Onset Date Comments Medication Refill 07/19/2024 Encounter Details Date Type Department Care Team (Late st Contact Info) Description 07/19/2024 Refill Family Medicine [address] [phone] Tatyana Holcomb MD [address] [place] [address] [place] [phone] Generalized anxiety disorder; Panic attack Allergies No known active allergiesdocumented as of this encounter (statuses as of 07/23/2024) Medications Medication Sig Dispensed Refills Start Date [...] 08/19/2023 Active Levocetirizine Dihydrochloride 5 MG Oral TabletIndications:Pr essure sensation in both ears Take 1 Tablet by mouth every evening. 90 Tablet 1 02/15/2024 Active Amitriptyline HCl 10 MG Oral Tablet (Elavil)Indications: Frequent headaches Take 1 Tablet by mouth at bedtime. 90 Tablet 1 05/25/2024 Active Ezetimibe 10 MG Oral Tablet (Zetia)Indications:C oronary artery disease involving [place] coronary artery of [place] heart without angina pectoris Take 1 Tablet [...] 06/22/2024 Active Irbesartan 75 MG Oral Tablet (Avapro)Indications: DM type 2, goal HbA1c < 7% (HCC),Coronary artery disease involving [place] coronary artery of [place] heart without angina pectoris,Primary hypertension Take 1 Tablet by mouth in the morning. 90 Tablet 1 06/22/2024 Active LORazepam 1 MG Oral Tablet (Ativan)Indications: Generalized anxiety disorder,Panic attack Take 1 Tablet by mouth daily as needed for Anxiety. 30 Tablet 07/23/2024 Active LORazepam 1 MG Oral Tablet (Ativan)Indications: Generalized anxiety disorder,Panic attack Take 1 Tablet by mouth daily as needed for Anxiety. 30 Tablet 05/03/2024 Discontinue d(Refill) documented as of this encounter (statuses as of 07/23/2024) Active Problems Problem Noted Date Diagnosed Date Prediabetes 05/21/2024 Overview: Per Prediabetes protocol Panic attack 05/03/2024 Morbid obesity with BMI of 40.0-44.9, adult 05/14 Overview: 328 Degenerative lumbar disc 05/23/2023 Overview: [facility] broad based bulging disc L4-5 not impinging on spinal cord, had trigger point injections Tobacco use disorder 08/16/2022 Hearing loss, sensorineural, high frequency, emperatriz ateral 06/29/2022 Dysfunction of both eustachian tubes 04/26/2022 Primary hypertension 04/14/2020 Dyslipidemia, goal LDL below 70 04/14/2020 Generalized anxiety disorder Coronary artery disease invo lving [place] coronary artery of [place] heart without angina pectoris Overview: stent 2017 Gastroesophageal reflux dise ase with esophagitis without hemorrhage documented as of this encounter (statuses as of 07/23/2024) Resolved Problems Problem Noted Date Diagnosed Date Resolved Date BMI 39.0-39.9,adult 04/26/2022 10/28/20 22 Overview: 320 DM type 2, goal HbA1c < 7% 07/30/2021 0 05/03/2024 Overview: [facility] ER hgba1c 7.5 BMI 40.0-44.9, adult 023 documented as of this encounter (statuses as of 07/23/2024) Immunizations No known immunizationsdocumented as of this encounter Social History Tobacco Use Types Packs/Day Years Used Date Smoking Tobacco: Every Day Cigarettes 1 42.7 Started: 1981 Smokeless Tobacco: Never Alcohol Use [...] encounter Miscellaneous Notes * Telephone Encounter - Tatyana Holcomb MD - 07/23/2024 8:13 AM EDT Signed Prescriptions: Disp Refills LORazepam 1 MG Oral Tablet (Ativan) 30 Tab*0 Sig: Take 1 Tablet by mouth daily as needed for Anxiety. Authorizing Provider: TATYANA HOLCOMB * Telephone Encounter - Ashley Howe [facility] - 07/22/2024 8:30 AM EDT Pending Prescriptions: Disp Refills LORazepam 1 MG Oral Tablet (Ativan) 30 Tab*0 Sig: Take 1 Tablet by mouth daily as needed for Anxiety. * Telephone Encounter - Ashley Howe [facility] - 07/22/2024 8:29 AM EDT I have reviewed the patients controlled substance dispensing history in the Prescription Drug Monitoring Program in compliance with the [facility] regulations before prescribing a controlled substance. PDMP checked on 07/22/2024. Pending Prescriptions: Disp Refills LORazepam 1 MG Oral Tablet (Ativan) 30 Tab*0 Sig: Take 1 Tablet by mouth daily as needed for Anxiety. Last Visit: 06/11/2024 (in office), Visit date not found (telemedicine) Next Visit: 12/25/2024 Date medication was last filled: 05/03/24 Date medication is due for refill: 06/01/24 Pharmacy: [email or web address], [address] [place] Is this request for a controlled substance? Yes and Urine Drug Screen Not completed Toxicology results: No results found for this or any previous visit. Please approve if appropriate. Thank you, Ashley Howe, PharmD Clinical Pharmacist [facility] ([facility]) 07/22/24 8:30 AM [phone] documented in this encounter Plan of Treatment Upcoming Encounters Date Type Department Care Team (Late st Contact Info) Description 12/25/2024 7:20 AM EST Office Visit Family Medicine [address] [place] [phone] Tatyana Holcomb MD [address] [place] [address] [place] [phone] 02/19/2025 3:40 PM EDT Office Visit Sleep Disorders Ctr [facility] [address] [place] [phone] Mikala Leonard DO [address] [place] [address] Health Maintenance Due Date Last Done Comments DISCUSS TOBACCO CESSATION (REFER TO SMARTSET #9530) 1969 Pneumococcal Vaccine: Pediatrics (0 to 5 Years) and At-Risk Patients (6 to 64 Years) (1 of 2 - PCV) 1975 HIV Screening 1984 Hepatitis C Screening 1987 DTap/Tdap Vaccines (1 - Tdap) 1988 Hepatitis B Vaccine (1 of 3 - 19+ 3-dose series) 1988 Cologuard 2014 Fecal Occult Blood Test 2014 Sigmoidoscopy 2014 Zoster Vaccines (1 of 2) 2019 COVID-19 Vaccine (1 - 2022- season) 2024 Influenza Vaccine (FLU shot) (#1) 2024 GFR 12/28/2024 12/28/2023, 05/2024, 04/28/2023, Additional history exists Depression Screening 01/23/2025 01/24/2024 HbA1c 05/03/2025 05/03/2024, 10/14, 04/28/2023, Additional history exists Albumin/Creatinine Ratio 05/03/20272 024, 05/04/2023, 04/19/2022 Colonoscopy 08/23/2027 08/23/2017 Colorectal [...] this encounter Medical Devices Implanted Type Area Granite Sandblaster Apprentice Device Identifier Shelf Expiration Date Model / Serial / Lot Lens Intraoc 19.5 - [id number] - [id number] Implanted:Qty: 1 on 12/14/2021 by Randell Franklin MD at OR [facility] Right: Eye [employer]CH [employer] LOMB 08/13/2026 [id number] / [id number] / [id number] Lens Intraoc 19.0 - [id number] - [id number] Implanted:Qty: 1 on 01/05/2022 by Randell Franklin MD at OR [facility] Left: Eye BAUSCH [employer] LOMB 06/13/2026 [id number] / [id number] / [id number] documented as of this encounter Visit Diagnoses Diagnosis Generalized anxiety disorder Panic attack Panic disorder without agoraphobia documented in this encounter Care Teams Research Home Economist Relationship Specialty Start Date End Date Tatyana Holcomb MD [address] [place] [address] [place] [phone] PCP - General Family Medicine 02/03/24 documented as of this encounter
--- OUTSIDE RECORDS SUMMARY | 2024-08-15 11:28 | External Medical Summary | Summary of Care ---
Author Name Unknown Organization [facility] Address [address] [facility] [place] [address] Phone [phone] Care Team Providers Care Hand Candy Dipper Name Role Phone Tatyana Holcomb MD Primary Care Provide r Reason for Visit * Reason Comments Outpatient Testing Encounter Details Date Type Department Care Team (Late st Contact Info) Description 05/03/2024 8:10 AM EDT Laboratory Laboratory [address] [place] [phone] [facility] [address] [place] [id number] [employer] Other*[id number] Allergies No known active allergiesdocumented as of [...] Oral Tablet (Zetia)Indications:Cor onary artery disease involving [place] coronary artery of [place] heart without angina pectoris Take 1 Tablet by mouth in the morning. 90 Tablet 1 10/31/2023 Active Irbesartan 75 MG Oral Tablet (Avapro)Indications:DM type 2, goal HbA1c < 7% (HCC),Coronary artery disease involving [place] coronary artery of [place] heart without angina pectoris,Primary hypertension Take 1 [...] Overview: 328 Degenerative lumbar disc 05/23/2023 Overview: [facility] broad based bulging disc L4-5 not impinging on spinal cord, had trigger point injections Tobacco use disorder 08/16/2022 Hearing loss, sensorineural, high frequency, emperatriz ateral 06/29/2022 Dysfunction of both eustachian tubes 04/26/2022 Primary hypertension 04/14/2020 Dyslipidemia, goal LDL below 70 04/14/2020 Generalized anxiety disorder Coronary artery disease invo lving [place] coronary artery of [place] heart without angina pectoris Overview: stent 2017 Gastroesophageal reflux dise ase with esophagitis without hemorrhage documented as of this encounter (statuses as of 05/03/2024) Resolved Problems Problem Noted Date Diagnosed Date Resolved Date BMI 39.0-39.9,adult 04/26/2022 10/28/20 22 Overview: 320 DM type 2, goal HbA1c < 7% 07/30/2021 0 05/03/2024 Overview: [facility] ER hgba1c 7.5 BMI 40.0-44.9, adult [...] No 01/24/2024 Does the household have a [facility] source of income? (Household - for ages [...] 7:20 AM EST Office Visit Family Medicine [address] [place] [phone] Tatyana Holcomb MD [address] [place] [address] [place] [phone] Pending Results Name Type Priority Associated Diagnoses Date /Time MYCODE SUBSEQUENT ADULT Lab Routine [employer] Other*[id number] 05/03/2024 8:14 AM EDT MYCODE SST1 Lab Routine [employer] Other*[id number] 05/03/2024 8:14 AM EDT MYCODE SST2 Lab Routine [employer] Other*[id number] 05/03/2024 8:14 AM EDT Health Maintenance Due Date Last Done Comments DISCUSS TOBACCO CESSATION (REFER TO SMARTSET #0349) 1969 Pneumococcal Vaccine: Pediatrics (0 to 5 [...] shot) (Season Ended) 2024 GFR 12/28/2024 12/28/2023, 0205/2024, 04/28/2023, Additional history exists Depression Screening 01/23/2025 01/24/2024 Albumin/Creatinine Ratio 05/04/2026 05/04/2023, 06/0 04/2022 Diabetes Screening 12/28/2026 12/28/2023, 0 12/21/2023, [...] this encounter Medical Devices Implanted Type Area Chute Builder Device Identifier Shelf Expiration Date Model / Serial / Lot Lens Intraoc 19.5 - [id number] - [id number] Implanted:Qty: 1 on 12/14/2021 by Randell Franklin MD at OR [facility] Right: Eye [employer]OMB 08/13/2026 [id number] / [id number] / [id number] Lens Intraoc 19.0 - [id number] - [id number] Implanted:Qty: 1 on 01/05/2022 by Randell Franklin MD at OR [facility] Left: Eye [employer]CH [employer] LOMB 06/13/2026 [id number] / [id number] / [id number] documented as of this encounter Visit Diagnoses Diagnosis [employer] Other*[id number] documented in this encounter Care Teams Hand Candy Dipper Relationship Specialty Start Date End Date Tatyana Holcomb MD [address] [place] [address] [place] [phone] PCP - General Family Medicine 02/03/24 documented as of this encounter
--- OUTSIDE RECORDS SUMMARY | 2024-08-15 11:28 | External Medical Summary | Summary of Care ---
Author Name Unknown Organization [facility] Address [address] [facility] [place] [address] Phone [phone] Care Team Providers Care Supervisor Net Making Name Role Phone Tatyana Holcomb MD Primary Care Provide r Reason for Visit * Reason Comments eRx-Medication Refill Encounter Details Date Type Department Care Team (Late st Contact Info) Description 06/21/2024 Refill Family Medicine [address] [place] [phone] Tatyana Holcomb MD [address] [place] [address] [place] [address] DM type 2, goal HbA1c < 7% ([facility]); Coronary artery disease involving [place] coronary artery of [place] heart without angina pectoris; Primary hypertension Allergies No known active allergiesdocumented as of this encounter (statuses as of 06/22/2024) Medications Medication Sig Dispensed Refills Start Date [...] the morning. 30 Tablet 11 3 Active Levocetirizine Dihydrochloride 5 MG Oral [...] Oral Tablet (Zetia)Indications:C oronary artery disease involving [place] coronary artery of [place] heart without angina pectoris Take 1 Tablet by mouth in the morning. 90 Tablet 1 4 Active Pantoprazole Sodium 40 MG Oral Tablet Delayed Release (Protonix)Indication s:Gastro-esophageal reflux disease with esophagitis, without bleeding Take 1 Tablet by mouth in the morning. 90 Tablet 1 4 Active Pioglitazone HCl 30 MG Oral Tablet (Actos)Indications:D M type 2, goal HbA1c < 7% (HCC) Take 1 Tablet by mouth in the morning. 90 Tablet 1 4 Active Irbesartan 75 MG Oral Tablet (Avapro)Indications: DM type 2, goal HbA1c < 7% (HCC),Coronary artery disease involving [place] coronary artery of [place] heart without angina pectoris,Primary hypertension Take 1 Tablet by mouth in the morning. 90 Tablet 1 4 Active Irbesartan 75 MG Oral Tablet (Avapro)Indications: DM type 2, goal HbA1c < 7% (HCC),Coronary artery disease involving [place] coronary artery of [place] heart without angina pectoris,Primary hypertension Take 1 Tablet by mouth in the morning. 90 Tablet 1 3 06/22/20 24 Discontinued Pioglitazone HCl 30 MG Oral Tablet (Actos)Indications:D M type 2, goal HbA1c < 7% ([facility]) Take 1 Tablet by mouth in the morning. 90 Tablet 1 3 06/22/20 24 Discontinued documented as of this encounter (statuses as of 06/22/2024) Active Problems Problem Noted Date Diagnosed Date Prediabetes 05/21/2024 Overview: Per Prediabetes protocol Panic attack 05/03/2024 Morbid obesity with BMI of 40.0-44.9, adult 05/14 Overview: 328 Degenerative lumbar disc 05/23/2023 Overview: [facility] broad based bulging disc L4-5 not impinging on spinal cord, had trigger point injections Tobacco use disorder 08/16/2022 Hearing loss, sensorineural, high frequency, emperatriz ateral 06/29/2022 Dysfunction of both eustachian tubes 04/26/2022 Primary hypertension 04/14/2020 Dyslipidemia, goal LDL below 70 04/14/2020 Generalized anxiety disorder Coronary artery disease invo lving [place] coronary artery of [place] heart without angina pectoris Overview: stent 2017 Gastroesophageal reflux dise ase with esophagitis without hemorrhage documented as of this encounter (statuses as of 06/22/2024) Resolved Problems Problem Noted Date Diagnosed Date Resolved Date BMI 39.0-39.9,adult 04/26/2022 10/28/20 22 Overview: 320 DM type 2, goal HbA1c < 7% 07/30/2021 0 05/03/2024 Overview: [facility] ER hgba1c 7.5 BMI 40.0-44.9, adult 023 documented as of this encounter (statuses as of 06/22/2024) Immunizations No known immunizationsdocumented as of this [...] Telephone Encounter - Tatyana Holcomb MD - 06/22/2024 12:35 PM EDT Signed Prescriptions: Disp Refills Pioglitazone HCl 30 MG Oral Tablet (Actos) 90 Tab*1 Sig: Take 1 Tablet by mouth in the morning. Authorizing Provider: TATYANA HOLCOMB Irbesartan 75 MG Oral Tablet (Avapro) 90 Tab*1 Sig: Take 1 Tablet by mouth in the morning. Authorizing Provider: TATYANA HOLCOMB * Telephone Encounter - Lorri Bergeron RP - 06/22/2024 12:05 PM EDT Pending Prescriptions: Disp Refills Pioglitazone HCl 30 MG Oral Tablet (Actos) 90 Tab*1 Sig: Take 1 Tablet by mouth in the morning. Irbesartan 75 MG Oral Tablet (Avapro) 90 Tab*1 Sig: Take 1 Tablet by mouth in the morning. * Telephone Encounter - Lorri Bergeron RP - 06/22/2024 12:04 PM EDT Not yet approved by PCP - OV scheduled for 12/25/24. Please refill if appropriate. Thank you, Lorri Bergeron, PharmD Clinical Pharmacist [facility] ([facility]) 06/22/24 12:05 PM [phone] documented in this encounter Plan of Treatment Upcoming Encounters Date Type Department Care Team (Late st Contact Info) Description 12/25/2024 7:20 AM EST Office Visit Family Medicine [address] [place] [phone] Tatyana Holcomb MD [address] [place] [address] [place] [address] Health Maintenance Due Date Last Done Comments DISCUSS TOBACCO CESSATION (REFER TO SMARTSET #8257) 1970 Pneumococcal Vaccine: Pediatrics (0 to 5 [...] this encounter Medical Devices Implanted Type Area District Sales Coordinator Device Identifier Shelf Expiration Date Model / Serial / Lot Lens Intraoc 19.5 - [id number] - [id number] Implanted:Qty: 1 on 12/14/2021 by Randell Franklin MD at OR [facility] Right: Eye [employer]USCH [employer] LOMB 08/13/2026 [id number] / [id number] / [id number] Lens Intraoc 19.0 - [id number] - [id number] Implanted:Qty: 1 on 01/05/2022 by Randell Franklin MD at OR [facility] Left: Eye BAUSCH & LOMB 06/13/2026 [id number] / [id number] / [id number] documented as of this encounter Visit Diagnoses Diagnosis DM type 2, goal HbA1c < 7% ([facility]) Coronary artery disease involving [place] coronary artery of [place] heart without angina pectoris Primary hypertension Unspecified essential hypertension documented in this encounter Care Teams Supervisor Net Making Relationship Specialty Start Date End Date Tatyana Holcomb MD [address] [place] [address] [place] [phone] PCP - General Family Medicine 02/03/24 documented as of this encounter
--- OUTSIDE RECORDS SUMMARY | 2024-08-15 11:28 | External Medical Summary | Summary of Care ---
Author Name Unknown Organization [facility] Address [address] [facility] [place] [address] Phone [phone] Care Team Providers Care Reconstructive Dentist Name Role Phone Tatyana Holcomb MD Primary Care Provide r Reason for Visit * Reason Onset Date Comments Appointment 07/04/2024 appointment Encounter Details Date Type Department Care Team (Late st Contact Info) Description 07/04/2024 Telephone [facility] [address] [place] [phone] Mikala Leonard DO [address] [place] [address] Appointment (appointment) Allergies No known active allergiesdocumented [...] Oral Tablet (Zetia)Indications:Cor onary artery disease involving [place] coronary artery of [place] heart without angina pectoris Take 1 Tablet [...] HbA1c < 7% (HCC),Coronary artery disease involving [place] coronary artery of [place] heart without angina pectoris,Primary hypertension Take 1 Tablet by mouth in the morning. 90 Tablet 1 06/22/2024 Active documented as of this encounter (statuses as of 07/04/2024) Active Problems Problem Noted Date Diagnosed Date Prediabetes 05/21/2024 Overview: Per Prediabetes protocol Panic attack 05/03/2024 Morbid obesity with BMI of 40.0-44.9, adult 05/14 Overview: 328 Degenerative lumbar disc 05/23/2023 Overview: [facility] broad based bulging disc L4-5 not impinging on spinal cord, had trigger point injections Tobacco use disorder 08/16/2022 Hearing loss, sensorineural, high frequency, emperatriz ateral 06/29/2022 Dysfunction of both eustachian tubes 04/26/2022 Primary hypertension 04/14/2020 Dyslipidemia, goal LDL below 70 04/14/2020 Generalized anxiety disorder Coronary artery disease invo lving [place] coronary artery of [place] heart without angina pectoris Overview: stent 2017 Gastroesophageal reflux dise ase with esophagitis without hemorrhage documented as of this encounter (statuses as of 07/04/2024) Resolved Problems Problem Noted Date Diagnosed Date Resolved Date BMI 39.0-39.9,adult 04/26/2022 10/28/20 22 Overview: 320 DM type 2, goal HbA1c < 7% 07/30/2021 0 05/03/2024 Overview: [facility] ER hgba1c 7.5 BMI 40.0-44.9, adult 023 [...] encounter Miscellaneous Notes * Telephone Encounter - Tammy Orona LPN - 07/04/2024 9:53 AM EDT [facility] sent over order for CPAP supplies. However, patients last office visit was 07/22/23. Patient needs updated office visit. Thank you. documented in this encounter Plan of Treatment Upcoming Encounters Date Type Department Care Team (Late st Contact Info) Description 12/25/2024 7:20 AM EST Office Visit Family Medicine [address] [place] [phone] Tatyana Holcomb MD [address] [place] [address] [place] [phone] Health Maintenance Due Date Last Done Comments DISCUSS TOBACCO CESSATION (REFER TO SMARTSET #4042) 1970 Pneumococcal Vaccine: Pediatrics (0 to 5 [...] this encounter Medical Devices Implanted Type Area Box Car Washer Device Identifier Shelf Expiration Date Model / Serial / Lot Lens Intraoc 19.5 - [id number] - [id number] Implanted:Qty: 1 on 12/14/2021 by Randell Franklin MD at OR [facility] Right: Eye BAUSCH & LOMB 08/13/2026 [id number] / [id number] / [id number] Lens Intraoc 19.0 - [id number] - [id number] Implanted:Qty: 1 on 01/05/2022 by Randell Franklin MD at OR [facility] Left: Eye BAUSCH & LOMB 06/13/2026 [id number] / [id number] / [id number] documented as of this encounter Care Teams Reconstructive Dentist Relationship Specialty Start Date End Date Tatyana Holcomb MD [address] [place] [address] [place] [phone] PCP - General Family Medicine 02/03/24 documented as of this encounter
--- OUTSIDE RECORDS SUMMARY | 2024-08-15 11:28 | External Medical Summary | Summary of Care ---
Author Name Unknown Organization [facility] Address [address] [facility] [place] [address] Phone [phone] Care Team Providers Care Dosier Operator Name Role Phone Tatyana Holcomb MD Primary Care Provide r Reason for Visit * Reason Onset Date Comments Appointment 07/04/2024 appointment Encounter Details Date Type Department Care Team (Late st Contact Info) Description 07/04/2024 [facility]phone [facility] [address] [place] [phone] Mikala Leonard DO [address] [place] [phone] Appointment (appointment) Allergies No known active allergiesdocumented [...] Oral Tablet (Zetia)Indications:Cor onary artery disease involving muckleshoot coronary artery of muck[place]oot heart without angina pectoris Take 1 Tablet [...] HbA1c < 7% (HCC),Coronary artery disease involving muck[place]oot coronary artery of muck[place]oot heart without angina pectoris,Primary hypertension Take 1 Tablet by mouth in the morning. 90 Tablet 1 06/22/2024 Active documented as of this encounter (statuses as of 07/04/2024) Active Problems Problem Noted Date Diagnosed Date Prediabetes 05/21/2024 Overview: Per Prediabetes protocol Panic attack 05/03/2024 Morbid obesity with BMI of 40.0-44.9, adult 05/14 Overview: 328 Degenerative lumbar disc 05/23/2023 Overview: [facility] broad based bulging disc L4-5 not impinging on spinal cord, had trigger point injections Tobacco use disorder 08/16/2022 Hearing loss, sensorineural, high frequency, emperatriz ateral 06/29/2022 Dysfunction of both eustachian tubes 04/26/2022 Primary hypertension 04/14/2020 Dyslipidemia, goal LDL below 70 04/14/2020 Generalized anxiety disorder Coronary artery disease invo lving muckleshoot coronary artery of muck[place] heart without angina pectoris Overview: stent 2017 Gastroesophageal reflux dise ase with esophagitis without hemorrhage documented as of this encounter (statuses as of 07/04/2024) Resolved Problems Problem Noted Date Diagnosed Date Resolved Date BMI 39.0-39.9,adult 04/26/2022 10/28/20 22 Overview: 320 DM type 2, goal HbA1c < 7% 07/30/2021 0 05/03/2024 Overview: [facility] ER hgba1c 7.5 BMI 40.0-44.9, adult [...] 7:20 AM EST Office Visit Family Medicine [address] [place] [phone] Tatyana Holcomb MD [address] [place] [address] [place] [phone] Health Maintenance Due Date Last Done Comments DISCUSS TOBACCO CESSATION (REFER TO SMARTSET #5800) 1970 Pneumococcal Vaccine: Pediatrics (0 to 5 [...] this encounter Medical Devices Implanted Type Area Repairing Calibrator Device Identifier Shelf Expiration Date Model / Serial / Lot Lens Intraoc 19.5 - [id number] - [id number] Implanted:Qty: 1 on 12/14/2021 by Randell Franklin MD at OR [facility] Right: Eye [employer] 08/13/2026 [id number] / [id number] / [id number] Lens Intraoc 19.0 - [id number] - [id number] Implanted:Qty: 1 on 01/05/2022 by Randell Franklin MD at OR [facility] Left: Eye [employer] 06/13/2026 [id number] / [id number] / [id number] documented as of this encounter Care Teams Dosier Operator Relationship Specialty Start Date End Date Tatyana Holcomb MD [address] [place] [address] [place] [phone] PCP - General Family Medicine 02/03/24 documented as of this encounter
--- OUTSIDE RECORDS SUMMARY | 2024-08-15 11:29 | External Medical Summary ---
Author Name Unknown Address Unknown Organization K01:[facility]ORY [facility] [place] - [address] [facility] [address] Laboratory Report Ordering Provider Test Date Status LYRIC MONTANEZ 05/03/2024 08:14:00 Dina l Observation Date Value Abnormality Reference (Units ) Status WBC, Total 05/03/2024 08:14:00 6.24 4.00-10.80 (K/uL) Final RBC 05/03/2024 08:14:00 4.67 4.50-5.25 (M/uL) Final Hemoglobin 05/03/2024 08:14:00 14.3 14.0-16.8 (g/dL) Final HCT 05/03/2024 08:14:00 43.2 40.0-48.4 (%) Final MCV 05/03/2024 08:14:00 92.5 82.0-99.5 (fL) Final MCH 05/03/2024 08:14:00 30.6 27.0-34.0 (pg) Final MCHC 05/03/2024 08:14:00 33.1 32.0-36.0 (g/dL) Final RDW 05/03/2024 08:14:00 13.6 11.5-15.5 (%) Final Platelets 05/03/2024 08:14:00 173 140-400 (K/uL) Final MPV 05/03/2024 08:14:00 10.4 6.6-11.1 (fL) Final Nucleated erythrocytes/100 leukocytes [Ratio] in Blood by Automated count 05/03/2024 08:14:00 0 <=0 (/100 WBCs) Final Performing Location LAB[facility]ATORY [facility] - [address] [place] [address]
--- OUTSIDE RECORDS SUMMARY | 2024-08-15 11:29 | External Medical Summary ---
Author Name Unknown Address Unknown Organization K01:[facility] [place] [address] [place] [address] Laboratory Report Ordering Provider Test Date Status MIKHAIL CANO 05/03/2024 08:14:00 Final Observation Date Value Abnormality Reference (Units ) Status MYCODE SPECIMEN-SST 05/03/2024 08:14:00 Freezing of extracted DNA, whole blood and/or serum. Final Performing Location LAB[facility]ORY [facility] - [address] [place] [address]
--- OUTSIDE RECORDS SUMMARY | 2024-08-15 11:29 | External Medical Summary ---
Author Name Unknown Address Unknown Organization K01:[facility] [place] [address] [place] [address] Laboratory Report Ordering Provider Test Date Status MIKHAIL CANO 05/03/2024 08:14:00 Final Observation Date Value Abnormality Reference (Units ) Status MYCODE SPECIMEN-SST 05/03/2024 08:14:00 Freezing of extracted DNA, whole blood and/or serum. Final Performing Location LABORATORY [facility] - [address] [place] [address]
--- OUTSIDE RECORDS SUMMARY | 2024-08-15 11:29 | External Medical Summary ---
Author Name Unknown Address Unknown Organization K01:[facility]ATORY [facility] [place] - [address] [facility] [place] [address] Laboratory Report Ordering Provider Test Date Status LYRIC MONTANEZ 05/03/2024 08:14:00 Dina l Observation Date Value Abnormality Reference (Units ) Status SYNC LEUKOCYTES IN BLOOD BY AUTOMATED COUNT 05/03/2024 08:14:00 6.24 4.00-10.80 (K/uL) Final Segs 05/03/2024 08:14:00 59.2 40.0-75.0 (%) Final Lymphs % 05/03/2024 08:14:00 30.9 18.0-42.0 (%) Final Monos 05/03/2024 08:14:00 7.7 1.0-11.0 (%) Final Eosinophils 05/03/2024 08:14:00 1.3 0.0-6.0 (%) Final Basos 05/03/2024 08:14:00 0.3 0.0-2.0 (%) Final Immature Granulocyte, Percent 05/03/2024 08:14:00 0.6 0.0-2.0 (%) Final Absolute Segs 05/03/2024 08:14:00 3.69 1.80-7.70 (K/uL) Final Lymphs, absolute 05/03/2024 08:14:00 1.93 1.00-4.80 (K/ul) Final Monos, Abs 05/03/2024 08:14:00 0.48 0.00-1.10 (K/uL) Final Eos, Abs 05/03/2024 08:14:00 0.08 0.00-0.70 (K/uL) Final Basos, Abs 05/03/2024 08:14:00 0.02 0.00-0.20 (K/uL) Final Immature Granulocytes, Number 05/03/2024 08:14:00 0.04 0.00-0.20 (K/uL) Final Performing Location LABORATORY [facility] [place] - [address] [facility] [address]
--- OUTSIDE RECORDS SUMMARY | 2024-08-15 11:29 | External Medical Summary ---
Author Name Unknown Address Unknown Organization K01:[facility] [place] [address] [place] [address] Laboratory Report Ordering Provider Test Date Status LYRIC MONTANEZ 05/03/2024 08:14:00 Dina l Normal: <30 mg/g creatinine< br/>High: 30-300 mg/g creatinine
Very High: >300 mg/g creatinine
Nephrotic: >2200 mg/g creatinine Observation Date Value Abnormality Reference (Units ) Status Albumin, Urine 05/03/2024 08:14:00 <1.20 (mg/dL) Final Creatinine, Urine 05/03/2024 08:14:00 129 (mg/dL) Final Albumin/Creatinine [Mass Ratio] in Urine 05/03/2024 08:14:00 <9 <30 (mg/g Creat) Final Performing Location [facility] [place] [address] [place] [address]
--- OUTSIDE RECORDS SUMMARY | 2024-08-15 11:29 | External Medical Summary ---
Author Name Unknown Address Unknown Organization K01:LABORATORY [facility] [place] - [address] [facility] [place] [address] Laboratory Report Ordering Provider Test Date Status LYRIC MONTANEZ 05/03/2024 08:14:00 Dina l Observation Date Value Abnormality Reference (Units ) Status Triglyceride 05/03/2024 08:14:00 159 <=174 ( mg/dL) Final Triglyceride Reference Range s (mg/dL):
<150 Acceptable
150-174 Borderline high
175-499 High
>=500 Very high Cholesterol 05/03/2024 08:14:00 130 <200 (mg /dL) Final Total Cholesterol Reference Ranges (mg/dL):
<200 Desirable
200-239 Borderline high
>=240 High HDL 05/03/2024 08:14:00 39 Below low normal >39 (mg/dL) Final HDL Cholesterol Reference Ra nges (mg/dL):
>=60 High (Desirable)
<50 Low (Undesirable) For Females
<40 Low (Undesirable) For Males NON-HDL CHOLESTEROL 05/03/2024 08:14:00 91 <=159 (mg/dL) Final Non-HDL Cholesterol Referenc e Range (mg/dL):
<100 Target level for high risk ASCVD patient
<130 Optimal for general population
130-159 Near optimal for general population
160-189 Borderline High
190-219 High
>=220 Very High LDL, (calculated) 05/03/2024 08:14:00 59 <= 129 (mg/dL) Final LDL Cholesterol Reference Ra nges (mg/dL):
<70 Target level for high risk ASCVD patient
<100 Optimal for general population
100-129 Near optimal for general population
130-159 Borderline high
160-189 High
>=190 Very high Performing Location LABORATORY [facility] [place] - [address] [facility] [address]
--- OUTSIDE RECORDS SUMMARY | 2024-08-15 11:29 | External Medical Summary ---
Author Name Unknown Address Unknown Organization K01:[facility]ORY [facility] [place] - [address] [facility] [address] Laboratory Report Ordering Provider Test Date Status LISSETHLYRIC 05/03/2024 08:14:00 Dina l Observation Date Value Abnormality Reference (Units ) Status HbA1C 05/03/2024 08:14:00 6.2 Above high normal 4. 0-5.6 (%) Final The use of HbA1c to monitor glycemic status is based on normal hemoglobin and HbA composition. This test should not be used in patients with abnormal hemoglobin that affects the half life of the red blood cell or the in vivo glycation rates. Glucose, estimated average 05/03/2024 08:14:00 131 Above high normal <126 (mg/dL) Josh kimble Performing Location LABORATORY [facility] [place] - [address] [facility] [address]
[2024-08-15 12:46] VITALS: BP 143/83; TEMP 98.1; O2SAT 96
--- NOTE | 2024-08-15 13:31 | XCELERA ---
[id number] \\[id number]
--- NOTE | 2024-08-15 14:18 | Discharge Summary ---
Discharge Summary Date of Service August 15, 2024 Principal Dx & Hospital Course #1 = Principal Diagnosis (1) Atypical chest pain: (2) Physical deconditioning: (3) Impaired exercise tolerance: (4) GLORIA (obstructive sleep apnea): (5) Diabetes 1.5, managed as type 2: (6) Hypertension: (7) Coronary artery disease: (8) Anxiety state, unspecified: Plan Patient presents to the emergency room with complaints of a exertional right sided discomfort. Patient was observed in the hospital. There is no significant arrhythmias on telemetry monitoring. Troponins were trended and were normal times all sets. Cardiology consultation was obtained. Evaluated by cardiology and recommended a exercise stress echo. Patient underwent this testing. He had decreased exercise tolerance but stress testing showed no evidence of ischemia. Cardiology recommended no changes in his home medications. Patient's symptoms may correlate to his poor physical conditioning and decreased exercise tolerance but did not appear to be related to cardiac ischemia. We discussed possibly slowly introducing some increased activity and exercise in his daily regimen also consider possible referral to cardiac rehab which can be done through his PCP or venue manager. is at the bedside as we reviewed discharge plan and findings of the stress test and laboratory studies. Patient be discharged home outpatient follow-up with his providers. Notes For Next Care Provider Consider possible cardiac rehab Medication Changes From Visit None Admission HPI Per Admitting Provider Reza Jesus is a 53 y/o male with previous medical history significant for ischemic heart disease with an LAD stent, hypertension, type 2 diabetes mellitus, obstructive sleep apnea, hyperlipidemia, GERD, irritable bowel syndrome and lumbar disc disease who presents to the ER this evening with chest pain. He has had a pressure-like chest pain in the right precordial area on and off for the past couple days. There is no radiation of the pressure. He denies nausea, diaphoresis or shortness of breath. He said it is very fleeting and only lasts a couple seconds. He is obviously quite concerned because of his coronary artery disease history. He denies any nausea or vomiting with this. His last stress echo was in 2021 was negative for ischemia. He follows with cardiology every 6 months. In the ED is initial troponin is negative. His EKG shows no acute changes. Admission Exam Per Admitting Provider See H&P Discharge Exam Constitutional: Alert, morbidly obese HEENT: Mucous membranes moist. Lungs: Clear to auscultation, decreased, no wheezes rales or rhonchi CV: S1-S2, regular Abdomen: Soft, nontender, nondistended Extremities: No significant edema Neuro: No focal deficits Psych: Cooperative, normal mood Updated Medication List Medication Instructions Recorded Confirmed Type pantoprazole 40 mg tablet,delayed 40 mg PO DAILY #30 tabs 10/04/19 08/14/24 Rx release irbesartan 75 mg tablet 75 mg PO DAILY 09/21/21 08/14/24 History pioglitazone 30 mg tablet (Actos) 30 mg PO DAILY 09/21/21 08/14/24 History acetaminophen 500 mg tablet 1,000 mg PO Q6H PRN Pain 05/23/23 08/14/24 History (Tylenol Extra Strength) amitriptyline 10 mg tablet 10 mg PO HS 05/23/23 08/14/24 History ezetimibe 10 mg tablet 10 mg PO QAM 05/23/23 08/14/24 History levocetirizine 5 mg tablet 5 mg PO QPM 05/23/23 08/14/24 History lorazepam 1 mg tablet 1 mg PO DAILY PRN Anxiety 05/23/23 08/14/24 History magnesium oxide 400 mg (241.3 mg 400 mg PO HS 05/23/23 08/14/24 History magnesium) tablet sertraline 25 mg tablet 25 mg PO QAM 05/23/23 08/14/24 History rosuvastatin 40 mg tablet 40 mg PO DAILY #90 tabs 03/13/24 08/14/24 Rx clopidogrel 75 mg tablet 75 mg PO DAILY #90 tabs 04/18/24 08/14/24 Rx Hospital Stay Data Consultations 08/14/24 18:57 ED Decision to Admit Stat 08/15/24 07:00 Consult Cardiology Routine Diagnostic Imagining Performed Reviewed imaging, laboratory and diagnostic studies. Pertinent findings as below. Troponins negative times all sets Stress echocardiogram showed no evidence of ischemia, normal right ventricular systolic pressure, mild left ventricular hypertrophy. I refer to the full report for details Hemoglobin A1c 5.8% Pending Results Patient Have Any Pending Studies at Discharge: No Discharge Instructions Given to Patient (Per Discharging Provider) Continue with usual medications Discussed with PCP or cardiology about possible cardiac rehab Total Time Total Time Spent Total Time Spent (In Minutes): 25
[2024-08-15 14:30] VITALS: PULSE 80
--- NOTE | 2024-08-15 15:08 | Electrocardiogram Report ---
Test Reason : Blood Pressure : */* mmHG Vent. Rate : 96 BPM Atrial Rate : 96 BPM P-R Int : 168 ms QRS Dur : 72 ms QT Int : 334 ms P-R-T Axes : -11 -10 -16 degrees QTcB Int : 421 ms Normal sinus rhythm possible Inferior infarct (cited on or before 18-Dec-2023) Abnormal ECG When compared with ECG of 18-Dec-2023 22:46, No significant change was found Confirmed by Rodrick Méndez ([id number]) on 08/15/2024 3:08:13 PM Referred By: REFERRED SELF Confirmed By: Rodrick Méndez
--- NOTE | 2024-08-15 15:13 | Electrocardiogram Report ---
Test Reason : Blood Pressure : */* mmHG Vent. Rate : 76 BPM Atrial Rate : 76 BPM P-R Int : 178 ms QRS Dur : 94 ms QT Int : 406 ms P-R-T Axes : 39 -3 27 degrees QTcB Int : 456 ms Normal sinus rhythm Normal ECG When compared with ECG of 14-Aug-2024 17:19, (unconfirmed) QRS duration has increased Nonspecific T wave abnormality has replaced inverted T waves in Inferior leads Confirmed by Rodrick Méndez ([id number]) on 08/15/2024 3:13:20 PM Referred By: REFERRED SELF Confirmed By: Rodrick Méndez
== END 2024-08-15 15:15 | disposition home or self-care (01) ==
LOC: 4W 17:11 → ED 17:11 → SUATTDRO 19:14 → 4W 21:54